=== PATIENT | male | born 1960 | race Caucasian/White ===

== ENCOUNTER 2016-12-30 08:01 | Inpatient (IN) | payer OTHER ==
[2016-12-30] MEDS ORDERED: NITROGLYCERIN OINT 1 INCH/GM PACKET TOPICAL STA (08:08)
[2016-12-30] MEDS ORDERED: ASPIRIN 81 MG CHEW PO STA (08:08)
--- NOTE | 2016-12-30 08:13 | ED ---
General Adult HPI - General Chief complaint: Chest Pain Stated complaint: chest pain Time Seen by Provider: 12/30/16 08:08 Source: patient, EMS, RN notes reviewed Mode of arrival: EMS Limitations: no limitations - History of Present Illness Initial comments: Patient is a pleasant 56-year-old male presenting to the emergency department complaining of chest discomfort. Onset was after walking up steps back to his office. Discomfort was severe. Discomfort has resolved following aspirin and nitro question by EMS. Discomfort felt like pressure or tightness in the chest with radiation to the left arm. No associated dyspnea or nausea or diaphoresis. No history of similar symptoms previously. - Related Data Home Medications Medication Instructions Recorded Confirmed No Known Home Medications [No 12/30/16 12/30/16 Known Home Medications] Allergies Allergy/AdvReac Type Severity Reaction Status Date / Time No Known Allergies Allergy Verified 12/30/16 08:57 Review of Systems ROS Statement: Those systems with pertinent positive or pertinent negative responses have been documented in the HPI. ROS Other: All systems not noted in ROS Statement are negative. Constitutional: Denies: fever Eyes: Denies: eye pain ENT: Denies: ear pain Respiratory: Denies: cough, dyspnea Cardiovascular: Reports: chest pain Endocrine: Denies: fatigue Gastrointestinal: Denies: abdominal pain Genitourinary: Denies: dysuria Musculoskeletal: Denies: back pain Skin: Denies: rash Neurological: Denies: weakness Past Medical History Past Medical History: No Reported History History of Any Multi-Drug Resistant Organisms: None Reported Past Surgical History: No Surgical Hx Reported Past Psychological History: No Psychological Hx Reported Smoking Status: Current every day smoker Past Alcohol Use History: Daily Past Drug Use History: None Reported General Exam Limitations: no limitations General appearance: alert, in no apparent distress Head exam: Present: atraumatic Eye exam: Present: normal appearance ENT exam: Present: normal oropharynx Neck exam: Present: normal inspection Respiratory exam: Present: normal lung sounds bilaterally. Absent: chest wall tenderness Cardiovascular Exam: Present: regular rate, normal rhythm Expanded Peripheral pulses: 2+: Radial (R), Radial (L), Dorsalis Pedis (R), Dorsalis Pedis (L) GI/Abdominal exam: Present: soft. Absent: tenderness Extremities exam: Present: normal inspection. Absent: pedal edema, calf tenderness Neurological exam: Present: alert Psychiatric exam: Present: normal affect, normal mood Skin exam: Absent: rash Course Vital Signs 12/30/16 12/30/16 12/30/16 08:05 08:36 08:44 Temperature 97.6 F Pulse Rate 79 74 86 Respiratory 16 16 16 Rate Blood Pressure 168/89 158/87 161/87 O2 Sat by Pulse 98 97 97 Oximetry - Reevaluation(s) Reevaluation #1: 12/30/16 08:13 Case was discussed in detail with Dr. Rees and EKGs have been forwarded. EKG Findings - EKG Comments: EKG Findings:: Normal sinus rhythm at 83. Normal intervals. Normal axis. Borderline inferior ST elevation. Normal QRS. Medical Decision Making - Medical Decision Making Patient reevaluated and remained symptom-free. Patient was updated regarding results and plan. Also notified Crystal with cardiology regarding elevated troponin. Case was discussed in detail with Dr. Carver, covering for Dr. nunez, who will admit for hospital call. - Lab Data Result diagrams: 12/30/16 08:00 12/30/16 08:00 Lab Results 12/30/16 12/30/16 12/30/16 Range/Units 08:00 08:00 08:00 WBC 6.7 (3.8-10.6) k/uL RBC 5.07 (4.30-5.90) m/uL Hgb 15.7 (13.0-17.5) gm/dL Hct 47.8 (39.0-53.0) % MCV 94.2 (80.0-100.0) fL MCH 31.0 (25.0-35.0) pg MCHC 32.9 (31.0-37.0) g/dL RDW 13.7 (11.5-15.5) % Plt Count 209 (150-450) k/uL Neutrophils % 60 % Lymphocytes % 29 % Monocytes % 6 % Eosinophils % 1 % Basophils % 2 % Neutrophils # 4.0 (1.3-7.7) k/uL Lymphocytes # 1.9 (1.0-4.8) k/uL Monocytes # 0.4 (0-1.0) k/uL Eosinophils # 0.1 (0-0.7) k/uL Basophils # 0.1 (0-0.2) k/uL PT (9.0-12.0) sec INR (<1.1) APTT (22.0-30.0) sec Sodium 140 (137-145) mmol/L Potassium 4.2 (3.5-5.1) mmol/L Chloride 105 (98-107) mmol/L Carbon Dioxide 26 (22-30) mmol/L Anion Gap 9 mmol/L BUN 13 (9-20) mg/dL Creatinine 0.80 (0.66-1.25) mg/dL Est GFR (MDRD) Af Amer >60 (>60 ml/min/1.73 sqM) Est GFR (MDRD) Non-Af >60 (>60 ml/min/1.73 sqM) Glucose 104 H (74-99) mg/dL Calcium 8.7 (8.4-10.2) mg/dL Magnesium 2.0 (1.6-2.3) mg/dL Total Bilirubin 0.6 (0.2-1.3) mg/dL AST 23 (17-59) U/L ALT 43 (21-72) U/L Alkaline Phosphatase 69 (38-126) U/L Total Creatine Kinase 124 (55-170) U/L CK-MB (CK-2) 2.7 H* (0.0-2.4) ng/mL CK-MB (CK-2) Rel Index 2.2 Troponin I 0.111 H* (0.000-0.034) ng/mL Total Protein 6.8 (6.3-8.2) g/dL Albumin 3.9 (3.5-5.0) g/dL 12/30/16 Range/Units 08:00 WBC (3.8-10.6) k/uL RBC (4.30-5.90) m/uL Hgb (13.0-17.5) gm/dL Hct (39.0-53.0) % MCV (80.0-100.0) fL MCH (25.0-35.0) pg MCHC (31.0-37.0) g/dL RDW (11.5-15.5) % Plt Count (150-450) k/uL Neutrophils % % Lymphocytes % % Monocytes % % Eosinophils % % Basophils % % Neutrophils # (1.3-7.7) k/uL Lymphocytes # (1.0-4.8) k/uL Monocytes # (0-1.0) k/uL Eosinophils # (0-0.7) k/uL Basophils # (0-0.2) k/uL PT 10.6 (9.0-12.0) sec INR 1.0 (<1.1) APTT 24.9 (22.0-30.0) sec Sodium (137-145) mmol/L Potassium (3.5-5.1) mmol/L Chloride (98-107) mmol/L Carbon Dioxide (22-30) mmol/L Anion Gap mmol/L BUN (9-20) mg/dL Creatinine (0.66-1.25) mg/dL Est GFR (MDRD) Af Amer (>60 ml/min/1.73 sqM) Est GFR (MDRD) Non-Af (>60 ml/min/1.73 sqM) Glucose (74-99) mg/dL Calcium (8.4-10.2) mg/dL Magnesium (1.6-2.3) mg/dL Total Bilirubin (0.2-1.3) mg/dL AST (17-59) U/L ALT (21-72) U/L Alkaline Phosphatase (38-126) U/L Total Creatine Kinase (55-170) U/L CK-MB (CK-2) (0.0-2.4) ng/mL CK-MB (CK-2) Rel Index Troponin I (0.000-0.034) ng/mL Total Protein (6.3-8.2) g/dL Albumin (3.5-5.0) g/dL - Radiology Data Radiology results: image reviewed (X-ray shows some chronic changes without acute process.) Critical Care Time Critical Care Time: Yes Total Critical Care Time: 36 Disposition Clinical Impression: NSTEMI (non-ST elevated myocardial infarction) Disposition: ADMITTED IP TO THIS HOSP Condition: Serious Time of Disposition: 09:08
[2016-12-30 08:21] LABS: Basophils # (A) 0.1 k/uL (0-0.2); Basophils % (A) 2 %; CH 31.4; CHCM 33.5; Eosinophils # (A) 0.1 k/uL (0-0.7); Eosinophils % (A) 1 %; HCT 47.8 % (39.0-53.0); HDW 2.55; HGB 15.7 gm/dL (13.0-17.5); Luc # (Auto) 0.19; Luc % (Auto) 3; Lymphocytes # (A) 1.9 k/uL (1.0-4.8); Lymphocytes % (A) 29 %; MCHC 32.9 g/dL (31.0-37.0); MCV 94.2 fL (80.0-100.0); Mean Platelet Volume 6.8; Monocytes # (A) 0.4 k/uL (0-1.0); Monocytes % (A) 6 %; Neutrophils % (A) 60 %; RBC 5.07 m/uL (4.30-5.90); RDW 13.7 % (11.5-15.5); WBC 6.7 k/uL (3.8-10.6)
[2016-12-30 08:30] LABS: Partial Thromboplastin Time 24.9 sec (22.0-30.0); Prothrombin Time 10.6 sec (9.0-12.0)
[2016-12-30 08:33] LABS: ALT 43 U/L (21-72); AST 23 U/L (17-59); Alkaline Phosphatase 69 U/L (38-126); Anion Gap 9 mmol/L; Blood Urea Nitrogen 13 mg/dL (9-20); Calcium 8.7 mg/dL (8.4-10.2); Carbon Dioxide 26 mmol/L (22-30); Chloride 105 mmol/L (98-107); Glucose 104 mg/dL (74-99); Non-African American GFR(MDRD) >60 (>60 ml/min/1.73 sqM); Potassium 4.2 mmol/L (3.5-5.1); Sodium 140 mmol/L (137-145); Total Bilirubin 0.6 mg/dL (0.2-1.3); Total Protein 6.8 g/dL (6.3-8.2)
--- NOTE | 2016-12-30 08:47 | XR ---
EXAMINATION TYPE: XR chest 2V DATE OF EXAM: 12/30/2016 8:36 AM COMPARISON: None HISTORY: 56-year-old male with chest pain TECHNIQUE: PA and lateral views FINDINGS: The cardiomediastinal silhouette, aorta, and pulmonary vasculature are within normal limits. Mild int erstitial prominence. No consolidation or pleural effusion. Incidental normal variant azygous fissure . IMPRESSION: Chronic-appearing changes without acute cardiopulmonary process.
[2016-12-30] MEDS ORDERED: HEPARIN SODIUM,PORCINE 5,000 UNIT/ML 1 ML VIAL IV PRN (08:53)
[2016-12-30] MEDS ORDERED: HEPARIN SODIUM,PORCINE 5,000 UNIT/ML 1 ML VIAL IV ONE (08:53)
[2016-12-30] MEDS ORDERED: HEPARIN SODIUM,PORCINE/D5W PMX 25,000 UNIT in DEXTROSE/WATER 1 500ML.BAG IV SCH (09:00)
[2016-12-30 09:01] LABS: Creatine Kinase MB 2.7 ng/mL (0.0-2.4); Troponin I 0.111 ng/mL (0.000-0.034)
[2016-12-30] MEDS ORDERED: NITROGLYCERIN SL TABS 0.4 MG TAB SUBLINGUAL PRN (09:08)
--- NOTE | 2016-12-30 09:35 | P.CRDCN ---
History of Present Illness Consult date: 12/30/16 Reason for Consult (text): chest pain History of present illness: this is a 56-year-old gentleman with history of chronic smoking with the no other significant medical history started having chest discomfort while at work today. Apparently walked to his office from a parking lot and sat down and had a severe tight feeling across left side of the chest with some radiation to the left arm. He felt warm. No complaints of any nausea or vomiting. Did not complain of any shortness of breath. Apparently his colleagues look at him and he was looking very frail. They wanted to bring him to the hospital. Apparently the office of the paramedics was close by and patient walked to the office. Paramedics apparently gave him nitroglycerin with complete relief of pain. Since then patient has been pain-free. His EKG showed a sinus rhythm with small Q waves in 23 and aVF with mild ST-T changes 1 and aVL. His first troponin is abnormal in the range of 0.111. Because of typical chest pain and mild EKG changes, patient is advised to have a cardiac catheterization for definitive diagnosis. Patient was explained the risks and benefits of the procedure including the possibility of myocardial infarctions stroke or even . Patient fully understood and accepted. Review of Systems REVIEW OF SYSTEMS: CONSTITUTIONAL:[]. Patient is doing well. No complaints of fever or chills EYES:[] Denies diplopia, blurring of vision EARS, NOSE, MOUTH, THROAT: Denies headaches, denies sore throat. CARDIOVASCULAR: [as per HPI. RESPIRATORY: Denies shortness of breath, denies cough. GASTROINTESTINAL: Denies change in appetite, denies abdominal pain,\ GENITOURINARY: Denies hematuria, denies infections. MUSKULOSKELETAL: Denies pain, denies swelling. Denies any cramps or claudication INTEGUMENTARY: Denies rash, denies eczema. NEUROLOGICAL: [] Denies focal weakness, or visual disturbance. Denies any dizziness or syncope PSYCHIATRIC: Denies anxiety, denies depression. accept default's HEMATOLOGIC/LYMPHATIC: Denies any bleeding, denies enlarged lymph nodes. accept default's Past Medical History Past Medical History: No Reported History History of Any Multi-Drug Resistant Organisms: None Reported Past Surgical History: No Surgical Hx Reported Past Psychological History: No Psychological Hx Reported Smoking Status: Current every day smoker Past Alcohol Use History: Daily Past Drug Use History: None Reported Medications and Allergies Home Medications Medication Instructions Recorded Confirmed Type No Known Home Medications [No 12/30/16 12/30/16 History Known Home Medications] Allergies Allergy/AdvReac Type Severity Reaction Status Date / Time No Known Allergies Allergy Verified 12/30/16 08:57 Physical Exam GENERAL EXAM: Patient is alert and oriented and doesn't appear to be in any acute distress HEENT: Normocephalic. Normal reaction of pupils, equal size, normal range of extraocular motion. No erythema or exudates in the throat. NECK: No masses, no nuchal rigidity. CHEST: No chest wall deformity. LUNGS: Equal air entry with no crackles or wheeze. HEART: S1 and S2 normal with no audible mumurs or gallops. Regular rhythm, pulses are diminished on the left side.. ABDOMEN: No hepatosplenomegaly, normal bowel sounds, no guarding or rigidity. SKIN: No rashes CENTRAL NERVOUS SYSTEM: No focal deficits. EXTREMITIES: [No cyanosis, clubbing or edema.accept default's Results 12/30/16 08:00 12/30/16 08:00 Current Medications Generic Name Dose Route Start Last Admin Trade Name Freq PRN Reason Stop Dose Admin Aspirin 325 mg 12/31/16 09:00 Aspirin PO DAILY [facility] Heparin Sodium (Porcine) 0 unit 12/30/16 08:53 Heparin IV PER PROTOCOL PRN Low PTT Protocol Heparin Sodium/Dextrose 25,000 500 mls @ 19.99 mls/hr 12/30/16 09:00 09:24 unit/ IV Solution IV 11.6 units/kg/hr .Q24H [facility] 19.99 mls/hr Protocol Administration 11.6 UNITS/KG/HR Nitroglycerin 1 inch 12/30/16 12:00 Nitro-Bid Oint TOPICAL Q6HR [facility] Nitroglycerin 0.4 mg 12/30/16 09:08 Nitrostat SUBLINGUAL Q5M PRN Chest Pain EKG Interpretations (text) sinus rhythm with small Q waves in inferior leads and nonspecific ST-T changes in 1 and aVL Assessment and Plan (1) NSTEMI (non-ST elevated myocardial infarction) Status: Acute (2) Smoking Status: Acute (3) Peripheral vascular disease Status: Acute Plan: patient's symptoms are sized for unstable angina/non-ST elevation PA. Patient is advised to have a cardiac catheterization for definitive diagnosis. Patient also has poor Pulses in the left leg and peripheral vascular disease to be evaluated.further recommendations depend upon the cardiac catheterization.
[2016-12-30] MEDS ORDERED: fentaNYL (PF) 50 MCG/ML 2 ML AMP IV ONE (10:07)
[2016-12-30] MEDS ORDERED: MIDAZOLAM 2 MG/2 ML VIAL IV ONE (10:07)
[2016-12-30] MEDS ORDERED: SODIUM CHLORIDE 0.9% 1,000 ML IV ONE (10:07)
[2016-12-30] MEDS ORDERED: LIDOCAINE 2% INJ 20 MG/ML SQ ONE (10:11)
[2016-12-30] MEDS ORDERED: IOHEXOL 350 MG/ML 125ML BOTTLE ONE (10:25)
[2016-12-30] MEDS ORDERED: IOHEXOL 350 MG/ML 125ML BOTTLE INTRATHECA ONE (10:25)
[2016-12-30] MEDS ORDERED: RX INFO: IV CONTRAST WAS GIVEN 1 EACH MISC MISCELLANE PRN (10:40)
[2016-12-30] MEDS ORDERED: ATORVASTATIN 80 MG TAB PO STA (10:46)
--- NOTE | 2016-12-30 10:47 | P.PCN ---
Date of Procedure: 12/30/16 Preoperative Diagnosis: Unstable angina/non-ST elevation LA Postoperative Diagnosis: Severe triple-vessel disease Procedure(s) Performed: Left heart catheterization with left ventriculography Description of Procedure: HISTORY: This is a 56-year-old gentleman with history of smoking who was admitted to the emergency room with complaints of prolonged chest pain with mild ST-T changes and positive troponins. Patient is advised to have a cardiac catheterization for definitive diagnosis. CONSENT:I have discussed the risks, benefits and alternative therapies for the above-mentioned procedure and for both sedation/analgesia as well as necessary blood product administration, if indicated, as they pertain to this patient. The patient has indicated understanding and acceptance of the risks and procedures discussed. PROCEDURE: Patient was brought to the lab in a fasting state. Patient was given some IV sedation. The right groin is infiltrated with lidocaine and right femoral artery was entered using Seldinger technique. A 6[place] catheter was left in place and selective coronary arteriography and left ventriculography was performed. Patient tolerated the procedure well. Femoral angiogram was performed and manual compression was applied for hemostasis. No immediate complications were noted and patient was transferred to [facility] in a stable condition HEMODYNAMICS: The aortic pressure is about 130/70. Left ankle end-diastolic pressure is 8-12. No gradient across the aortic valve. SELECTIVE CORONARY ARTERIOGRAPHY: LEFT MAIN: Normal length and patent THE LEFT ANTERIOR DESCENDING CORONARY ARTERY: Calcified. About 70-80% lesion proximally. There is a 80-90% stenosis in midportion. On the diagonal branches has about 70% lesion. The distal LAD is free of occlusive disease THE LEFT CIRCUMFLEX AND IS CORONARY ARTERY: Dominant and large caliber vessel. 90% stenosis proximally. There is a OM branch that has about 70-80% stenosis. THE RIGHT CORONARY ARTERY: Nondominant with a 90% stenosis in midportion. LEFT VENTRICULOGRAPHY: This revealed normal-sized cardiac silhouette with mild hypokinesis of the inferoapical segment. Ejection fraction is 50-55% FINAL IMPRESSION: Severe triple-vessel disease and mildly impaired LV function PLAN: Aortocoronary bypass surgery with the VELÁSQUEZ graft to the LAD, vein graft to the OM branch and also distal circumflex. Vein graft to the diagonal and possibly to the distal right. PROGNOSIS: Guarded
[2016-12-30] MEDS: SODIUM CHLORIDE 0.9% 1,000 ML IV SCH (11:59)
[2016-12-30] MEDS: METOPROLOL TARTRATE 25 MG TAB PO SCH ×2 (13:02→20:42)
[2016-12-30] MEDS: NITROGLYCERIN OINT 1 INCH/GM PACKET TOPICAL SCH ×2 (13:02→18:37)
[2016-12-30 14:45] LABS: Appearance,Urine Clear (Clear); Bilirubin,Urine Negative (Negative); Glucose,Urine (UA) Negative (Negative); Ketones,Urine Negative (Negative); Leukocyte Esterase,Urine Negative (Negative); Nitrite,Urine Negative (Negative); Protein,Urine Negative (Negative); Specific Gravity,Urine 1.018 (1.001-1.035); UA Billing (MACRO vs. MICRO) CHEM; Urobilinogen,Urine <2.0 mg/dL (<2.0)
[2016-12-30 15:03] LABS: Partial Thromboplastin Time 25.2 sec (22.0-30.0); Prothrombin Time 10.5 sec (9.0-12.0)
[2016-12-30 15:20] LABS: Cholesterol 194 mg/dL (<200); HDL Cholesterol 57 mg/dL (40-60); Magnesium 2.2 mg/dL (1.6-2.3); Triglycerides 115 mg/dL (<150)
--- NOTE | 2016-12-30 15:39 | US ---
EXAMINATION TYPE: US carotid duplex BILAT DATE OF EXAM: 12/30/2016 3:15 PM COMPARISON: NONE CLINICAL HISTORY: 56-year-old male Pre op CABG x 4. TECHNIQUE: Duplex carotid ultrasound examination. Indirect Doppler criteria was utilized. FINDINGS: There is mild atherosclerotic change at the bifurcations. EXAM MEASUREMENTS: RIGHT: Peak Systolic Velocity (PSV) cm/sec ----- Right CCA: 82.7 ----- Right ICA: 83.4 ----- Right ECA: 135.5 ICA/CCA ratio: 1.0 RIGHT: End Diastole cm/sec ----- Right CCA: 23.1 ----- Right ICA: 27.4 ----- Right ECA: 19.2 LEFT: Peak Systolic Velocity (PSV) cm/sec ----- Left CCA: 99.0 ----- Left ICA: 109.7 ----- Left ECA: 133.9 ICA/CCA ratio: 1.1 LEFT: End Diastole cm/sec ----- Left CCA: 25.0 ----- Left ICA: 38.6 ----- Left ECA: 17.6 VERTEBRALS (direction of flow): Right Vertebral: Antegrade Left Vertebral: Antegrade IMPRESSION: No hemodynamically significant stenosis appreciated in either internal carotid artery. Criteria for Assigning % of Stenosis / Diameter reduction (Estimation based on the indirect measurements of the internal carotid artery velocities (ICA PSV). 1. Normal (no stenosis)=ICA PSV < 125 cm/s: ratio < 2.0: ICA EDV<40 cm/s. 2. Less than 50% stenosis=ICA PSV < 125 cm/s: ratio < 2.0: ICA EDV<40 cm/s. 3. 50 to 69% stenosis=ICA PSV of 125 to 230 cm/s: ration 2.0 ? 4.0: ICA EDV 40-100 cm/s. 4. Greater than 70% stenosis to near occlusion= ICA PSV > 230 cm/s: ratio > 4.0: ICA EDV > 100 cm/s. 5. Near occlusion= ICA PSV velocities may be low or undetectable: variable ratio and ICA EDV. 6. Total occlusion=unable to detect flow.
[2016-12-30] MEDS ORDERED: MD COMMUNICATION TO PHARMACY 1 EACH MISC PO ONE (15:45)
[2016-12-30 15:48] LABS: Creatine Kinase MB 3.4 ng/mL (0.0-2.4); Troponin I 0.302 ng/mL (0.000-0.034)
[2016-12-30 15:51] LABS: Hepatitis B Surface Ag Index 0.05
[2016-12-30 15:57] LABS: Hepatitis B Core IgM Index 0.04
[2016-12-30 16:08] LABS: Hepatitis C Virus IgG Index 0.02
[2016-12-30 16:15] LABS: Hepatitis C Virus IgG Ab Negative (Negative)
--- NOTE | 2016-12-30 17:07 | P.GSCN ---
<Mandi Mcgarry - Last Filed: 12/30/16 16:46> History of Present Illness Consult date: 12/30/16 Reason for Consult: Severe coronary artery disease, non-STEMI requiring surgical revascularization. Requesting physician: Gabrielle Rees History of present illness: This 56-year-old gentleman with history of smoking was at work this morning and began to have chest discomfort. He was walking from his office through the parking lot and had severe tightness across the left side of his chest with radiation down his left arm. He denied any shortness of breath, nausea, vomiting. He walked from his work to the paramedics office which was close by, and the paramedics gave him sublingual nitro with complete relief of his pain. He did come into the emergency room and was ruled in for a non-STEMI. Cardiology associates was consulted, he was taken to the [facility] this morning, and was found to have severe triple-vessel disease and mildly impaired LV function. Cardiothoracic surgery was consulted for the possibility of surgical revascularization. Extensive discussion was had with the patient, all risks and benefits were explained, and the patient agreed to proceed with surgery. Review of Systems 14 point review of systems was completed and was negative except as noted. - Cardiovascular Reports as per HPI Past Medical History Past Medical History: No Reported History Additional Past Medical History / Comment(s): 12/30/16 NSTEMI. Other hx: L hip injury-misaligned and tx by chiropractor. History of Any Multi-Drug Resistant Organisms: None Reported Past Surgical History: No Surgical Hx Reported Additional Past Surgical History / Comment(s): vasectomy with reversal. Past Anesthesia/Blood Transfusion Reactions: No Reported Reaction Past Psychological History: No Psychological Hx Reported Additional Psychological History / Comment(s): Pt resides alone. He has an 8 month old [place] puppy. He is independent. Smoking Status: Current every day smoker Past Alcohol Use History: Daily Additional Past Alcohol Use History / Comment(s): Pt started smoking in 1986 and is 1 ppd smoker. Pt states he drinks less than 14 alcoholic beverages a week. Past Drug Use History: None Reported - Past Family History Father Family Medical History: Deep Vein Thrombosis (DVT) Additional Family Medical History / Comment(s): Father has had bilateral caratid endartectomies and DVT in leg. He is 78yrs old. Mother Additional Family Medical History / Comment(s): Mother at 74 yrs of age had cardiac valve repair along with hole in heart repaired. She is now 76yrs old. Medications and Allergies Home Medications Medication Instructions Recorded Confirmed Type No Known Home Medications [No 12/30/16 12/30/16 History Known Home Medications] Allergies Allergy/AdvReac Type Severity Reaction Status Date / Time No Known Allergies Allergy Verified 12/30/16 08:57 Surgical - Exam Vital Signs Temp Pulse Resp BP Pulse Ox 97.6 F 79 16 168/89 98 12/30/16 08:05 12/30/16 08:05 12/30/16 08:05 12/30/16 08:05 12/30/16 08:05 - General well developed, well nourished, no distress - Eyes PERRL, normal ocular movement - ENT no hearing loss - Neck no masses, no bruits, trachea midline - Respiratory normal expansion, normal respiratory effort, clear to auscultation - Cardiovascular Normal sinus rhythm on telemetry. Rhythm: regular Heart Sounds: normal: S1, S2 - Abdomen Abdomen: soft, non tender, bowel sounds - Genitourinary Deferred - Rectum Deferred - Integumentary no rash, no growths - Neurologic normal coordination, normal sensation - Musculoskeletal normal gait - Psychiatric oriented to time, oriented to person, oriented to place, speech is normal, memory intact Results - Labs 12/30/16 08:00 12/30/16 08:00 Abnormal Lab Results - Last 24 Hours (Table) 12/30/16 12/30/16 Range/Units 14:30 14:30 CK-MB (CK-2) 3.4 H* (0.0-2.4) ng/mL Troponin I 0.302 H* (0.000-0.034) ng/mL LDL Cholesterol, Calc 114 H (0-99) mg/dL Diabetes panel 12/30/16 Range/Units 14:30 Triglycerides 115 (<150) mg/dL HDL Cholesterol 57 (40-60) mg/dL Thyroid panel 12/30/16 Range/Units 14:30 TSH 1.470 (0.465-4.680) mIU/L Pituitary panel 12/30/16 Range/Units 14:30 TSH 1.470 (0.465-4.680) mIU/L - Imaging Chest x-ray: image reviewed EKG: image reviewed Additional studies: Cardiac cath films, carotid Doppler studies reviewed. Assessment and Plan (1) Tobacco dependence Status: Acute (2) NSTEMI (non-ST elevated myocardial infarction) Status: Acute Plan: The patient was seen and examined by Dr. Moulton from cardiothoracic surgery. All preop testing was ordered and is pending. The patient is currently chest pain-free. Preoperative teaching was begun, CABG binder given to patient. We will allow a few days for maximum medical therapy before proceeding on 01/02/2017 with urgent coronary artery bypass grafting 4. Emotional support given. Patient strongly encouraged to quit smoking. More recommendations as patient progresses. Thank you Dr. Rees for this consult. We look forward to produce pain to the care of your patient. Time with Patient: Greater than 30 <Evelio Wise - Last Filed: 12/31/16 11:50> Surgical - Exam Vital Signs Temp Pulse Resp BP Pulse Ox 97.6 F 79 16 168/89 98 12/30/16 08:05 12/30/16 08:05 12/30/16 08:05 12/30/16 08:05 12/30/16 08:05 Results - Labs 12/31/16 05:45 12/31/16 05:45 Abnormal Lab Results - Last 24 Hours (Table) 12/30/16 12/30/16 12/30/16 Range/Units 14:30 14:30 19:41 Chloride (98-107) mmol/L CK-MB (CK-2) 3.4 H* 4.1 H* (0.0-2.4) ng/mL Troponin I 0.302 H* 0.507 H* (0.000-0.034) ng/mL LDL Cholesterol, Calc 114 H (0-99) mg/dL 12/31/16 Range/Units 05:45 Chloride 108 H (98-107) mmol/L CK-MB (CK-2) (0.0-2.4) ng/mL Troponin I (0.000-0.034) ng/mL LDL Cholesterol, Calc 101 H (0-99) mg/dL Microbiology - Last 24 Hours (Table) 12/30/16 14:30 Urine Culture - Preliminary Urine,Voided 12/30/16 14:13 Nasal Screen MRSA/MSSA ([place]) - Preliminary Nasal Swab Diabetes panel 12/30/16 12/31/16 Range/Units 14:30 05:45 Sodium 139 (137-145) mmol/L Potassium 4.5 (3.5-5.1) mmol/L Chloride 108 H (98-107) mmol/L Carbon Dioxide 24 (22-30) mmol/L BUN 10 (9-20) mg/dL Creatinine 0.81 (0.66-1.25) mg/dL Glucose 95 (74-99) mg/dL Calcium 9.2 (8.4-10.2) mg/dL AST 25 (17-59) U/L ALT 38 (21-72) U/L Alkaline Phosphatase 68 (38-126) U/L Total Protein 6.6 (6.3-8.2) g/dL Albumin 3.8 (3.5-5.0) g/dL Triglycerides 115 98 (<150) mg/dL HDL Cholesterol 57 52 (40-60) mg/dL Thyroid panel 12/30/16 12/31/16 Range/Units 14:30 05:45 TSH 1.470 2.810 (0.465-4.680) mIU/L Calcium panel 12/31/16 Range/Units 05:45 Calcium 9.2 (8.4-10.2) mg/dL Albumin 3.8 (3.5-5.0) g/dL Pituitary panel 12/30/16 12/31/16 Range/Units 14:30 05:45 Sodium 139 (137-145) mmol/L Potassium 4.5 (3.5-5.1) mmol/L Chloride 108 H (98-107) mmol/L Carbon Dioxide 24 (22-30) mmol/L BUN 10 (9-20) mg/dL Creatinine 0.81 (0.66-1.25) mg/dL Glucose 95 (74-99) mg/dL Calcium 9.2 (8.4-10.2) mg/dL TSH 1.470 2.810 (0.465-4.680) mIU/L Adrenal panel 12/31/16 Range/Units 05:45 Sodium 139 (137-145) mmol/L Potassium 4.5 (3.5-5.1) mmol/L Chloride 108 H (98-107) mmol/L Carbon Dioxide 24 (22-30) mmol/L BUN 10 (9-20) mg/dL Creatinine 0.81 (0.66-1.25) mg/dL Glucose 95 (74-99) mg/dL Calcium 9.2 (8.4-10.2) mg/dL Total Bilirubin 0.9 (0.2-1.3) mg/dL AST 25 (17-59) U/L ALT 38 (21-72) U/L Alkaline Phosphatase 68 (38-126) U/L Total Protein 6.6 (6.3-8.2) g/dL Albumin 3.8 (3.5-5.0) g/dL Assessment and Plan Plan: The patient was seen and examined. I agree with the above assessment and plan. The patient is a 56-year-old male who presented to the hospital with chest pain. Workup revealed multivessel coronary artery disease. Coronary artery bypass was recommended. Risks, benefits, and alternatives this procedure were discussed with the patient. All questions were answered. We have scheduled him for surgery on Monday morning. He is currently hemodynamically stable and chest pain-free.
--- NOTE | 2016-12-30 17:18 | ECHOF ---
Referral Reason:nstemi MEASUREMENTS -------- HEIGHT: 175.3 cm WEIGHT: 86.2 kg BP: 161/87 RVIDd: 3.6 cm (< 3.3) IVSd: 1.2 cm (0.6 - 1.1) LVIDd: 4.2 cm (3.9 - 5.3) LVPWd: 1.3 cm (0.6 - 1.1) IVSs: 1.6 cm LVIDs: 2.9 cm LVPWs: 1.9 cm LA Diam: 2.9 cm (2.7 - 3.8) LAESV Index (A-L): 16.50 ml/m Ao Diam: 2.6 cm (2.0 - 3.7) AV Cusp: 1.4 cm (1.5 - 2.6) LA Diam: 1.8 cm (2.7 - 3.8) MV EXCURSION: 13.059 mm (> 18.000) MV EF SLOPE: 66 mm/s (70 - 150) EPSS: 0.3 cm MV E Dale: 0.58 m/s MV DecT: 229 ms MV A Dale: 0.52 m/s MV E/A Ratio: 1.11 FINDINGS -------- Sinus rhythm. This was a technically adequate study. There is mild concentric left ventricular hypertrophy. Overall left ventricular systolic function is normal with, an EF between 55 - 60 %. The right ventricle is mildly enlarged. Normal LA size by volume 22+/-6 ml/m2. The right atrium is normal in size. The aortic valve is trileaflet and appears structurally normal. Mild mitral annular calcification present. There is trace mitral regurgitation. Trace tricuspid regurgitation present. Pulmonic valve appears structurally normal. The aortic root size is normal. Normal inferior vena cava with normal inspiratory collapse consistent with estimated right atrial pressure of 5 mmHg. Echo free space may represent effusion or a pericardial fat pad. CONCLUSIONS -------- 1. Sinus rhythm. 2. There is trace mitral regurgitation. 3. Trace tricuspid regurgitation present. 4. Pulmonic valve appears structurally normal. 5. The aortic root size is normal. 6. Normal inferior vena cava with normal inspiratory collapse consistent with estimated right atrial pressure of 5 mmHg. 7. Echo free space may represent effusion or a pericardial fat pad. 8. This was a technically adequate study. 9. There is mild concentric left ventricular hypertrophy. 10. Overall left ventricular systolic function is normal with, an EF between 55 - 60 %. 11. The right ventricle is mildly enlarged. 12. Normal LA size by volume 22+/-6 ml/m2. 13. The right atrium is normal in size. 14. The aortic valve is trileaflet and appears structurally normal. 15. Mild mitral annular calcification present. RESIDENTIAL WORKER: Quinn Khan RDCS
[2016-12-30 18:12] LABS: Hemoglobin A1C 5.9 % (4.2-6.1)
--- NOTE | 2016-12-30 18:31 | HP ---
DATE OF ADMISSION: CHIEF COMPLAINT: Chest pain. HISTORY OF PRESENT ILLNESS: Mr. Black is a 56-year-old male without significant past medical history except for smoking. He was brought to the hospital with complaints of chest pain. Patient apparently was walking to his office from a parking lot and suddenly felt chest tightness, severe, and sat down. Patient felt chest pain across the left side of the chest with radiation to the left arm. Denied any nausea or vomiting. Denied any shortness of breath. Patient's colleagues found him and sent him to the hospital. Patient was given nitroglycerin by paramedics, and since that time patient is free of chest pain. Patient was seen by Cardiology and patient underwent cardiac catheterization that showed triple-vessel disease. Currently patient ( ) denied any recent illnesses. Denied any nausea, vomiting, abdominal pain. REVIEW OF SYSTEMS: CONSTITUTIONAL: No fever. No chills. No weakness. RESPIRATORY: No cough or sputum production. CARDIOVASCULAR: No chest pain or shortness of breath. No leg swelling. ABDOMEN: No nausea, vomiting, abdominal pain. RESPIRATORY: No orthopnea. No PND. GENITOURINARY: Negative. ENDOCRINE: Negative. PSYCHIATRIC: Negative. SKIN: Negative. NEUROLOGIC: Negative. All other fourteen-point review of systems negative except as above. PAST MEDICAL HISTORY: None. PAST SURGICAL HISTORY: Vasectomy. PAST PSYCHIATRIC HISTORY: None. SOCIAL HISTORY: Apparently an everyday smoker, 1 pack per day. Occasional alcohol use. Denied any drugs or IVDU. NO KNOWN DRUG ALLERGIES. HOME MEDICATIONS: None. FAMILY HISTORY: Father had diabetes mellitus and peripheral vascular disease. PHYSICAL EXAMINATION: A 56-year-old male lying in bed comfortably. Awake, alert and oriented x3. Appears in no distress. VITALS: Blood pressure is 116/91, pulse is 76, respiration 16, temperature afebrile. Pulse ox is 97% on room air. HEENT: Atraumatic, normocephalic. Neck is supple. No JVD. CVS: S1, S2 heard. No murmurs. No gallop. No rub. LUNGS: Bilateral air entry is present. No wheezing. No crackles. Nonlabored breathing. ABDOMEN: Soft, nontender. Bowel sounds present. SPICE GRINDER: Awake, alert, oriented x3. No focal deficit. EXTREMITIES: No edema. Pulses palpable bilaterally. No clubbing ( ) PSYCHIATRIC: Cooperative. LABORATORY DATA: WBC 6.7, hemoglobin 15.7, platelets 209. INR 1.0. Sodium 140, potassium 4.2, chloride 105, bicarb 26. BUN 13, creatinine 0.8. Troponin 0.111 and 0.302. UA negative. Hepatitis panel negative. TSH 1.47. LDL is 114. IMPRESSION: 1. Acute ajq-HG-[id number] myocardial infarction, status post cardiac catheterization. 2. Triple-vessel coronary artery disease. Recommended coronary artery bypass graft. 3. Nicotine addiction. 4. Suspected peripheral vascular disease. DISCUSSION AND PLAN: Patient will be continued on telemetry monitoring. Cardiology did cardiac catheterization and recommended bypass grafting due to triple-vessel disease. Awaiting patient's consent for procedure. Otherwise, patient is currently free of chest pain. REMAINING STUDIES: Chest x-ray shows chronic-appearing changes without acute cardiopulmonary process. EKG showed mild ST-T wave changes in leads I and aVL. Carotid duplex showed no hemodynamically significant stenosis.
[2016-12-30] MEDS: MUPIROCIN 2% OINT 22 GM TUBE NASAL SCH (20:42)
[2016-12-30 20:45] LABS: Creatine Kinase MB 4.1 ng/mL (0.0-2.4); Troponin I 0.507 ng/mL (0.000-0.034)
[2016-12-30] MEDS ORDERED: MUPIROCIN 2% OINT 22 GM TUBE NASAL SCH (21:00)
[2016-12-31] MEDS: SODIUM CHLORIDE 0.9% 1,000 ML IV SCH
[2016-12-31 06:18] LABS: Basophils % (A) 1 %; CH 31.5; CHCM 33.2; Eosinophils # (A) 0.1 k/uL (0-0.7); Eosinophils % (A) 2 %; HCT 48.4 % (39.0-53.0); HDW 2.54; HGB 15.7 gm/dL (13.0-17.5); Luc # (Auto) 0.15; Luc % (Auto) 2; Lymphocytes # (A) 1.9 k/uL (1.0-4.8); Lymphocytes % (A) 28 %; MCH 30.8 pg (25.0-35.0); MCHC 32.4 g/dL (31.0-37.0); MCV 95.2 fL (80.0-100.0); Mean Platelet Volume 6.8; Monocytes # (A) 0.4 k/uL (0-1.0); Monocytes % (A) 6 %; Neutrophils # (A) 4.2 k/uL (1.3-7.7); Neutrophils % (A) 62 %; RBC 5.09 m/uL (4.30-5.90); RDW 13.9 % (11.5-15.5); WBC 6.8 k/uL (3.8-10.6); WBC (Perox) 6.55
[2016-12-31 06:26] LABS: INR 1.1 (<1.1); Partial Thromboplastin Time 25.1 sec (22.0-30.0); Prothrombin Time 10.8 sec (9.0-12.0)
[2016-12-31 06:42] LABS: ALT 38 U/L (21-72); AST 25 U/L (17-59); Alkaline Phosphatase 68 U/L (38-126); Anion Gap 7 mmol/L; Blood Urea Nitrogen 10 mg/dL (9-20); Calcium 9.2 mg/dL (8.4-10.2); Carbon Dioxide 24 mmol/L (22-30); Chloride 108 mmol/L (98-107); Cholesterol 173 mg/dL (<200); Glucose 95 mg/dL (74-99); HDL Cholesterol 52 mg/dL (40-60); Magnesium 2.2 mg/dL (1.6-2.3); Non-African American GFR(MDRD) >60 (>60 ml/min/1.73 sqM); Potassium 4.5 mmol/L (3.5-5.1); Sodium 139 mmol/L (137-145); Total Bilirubin 0.9 mg/dL (0.2-1.3); Total Protein 6.6 g/dL (6.3-8.2); Triglycerides 98 mg/dL (<150)
[2016-12-31] MEDS: NITROGLYCERIN OINT 1 INCH/GM PACKET TOPICAL SCH ×6 (07:01→23:29)
[2016-12-31 07:06] LABS: Hepatitis B Surface Ag Index 0.05
[2016-12-31 07:12] LABS: Hepatitis B Core IgM Index 0.03
[2016-12-31 07:23] LABS: Hepatitis C Virus IgG Index 0.02
[2016-12-31 07:31] LABS: Hepatitis C Virus IgG Ab Negative (Negative)
[2016-12-31] MEDS: ASPIRIN 325 MG TAB PO SCH (08:00)
[2016-12-31] MEDS: METOPROLOL TARTRATE 25 MG TAB PO SCH ×2 (08:01→20:11)
[2016-12-31] MEDS: MUPIROCIN 2% OINT 22 GM TUBE NASAL SCH ×2 (08:02→20:11)
[2016-12-31 13:00] LABS: Hemoglobin A1C 5.8 % (4.2-6.1)
--- NOTE | 2016-12-31 14:39 | P.PN ---
<Baltazar Chiu L - Last Filed: 12/31/16 14:28> Progress Note - Text CV Surgery Nursing Patient awake and alert, no distress noted, no specific complaints,denies complaints of chest pain. Patient's daughters are at bedside. Vital Signs: Afebrile Vital Signs - 24 hr 12/30/16 12/30/16 12/30/16 15:30 16:00 19:12 Temperature 96.1 F L 96.4 F L Pulse Rate [ 66 Bilateral Dorsalis Pedis] Pulse Rate [ 66 76 Pulse Oximetery ] Respiratory 20 20 16 Rate Blood Pressure 114/65 131/69 [Right Arm Supine] O2 Sat by Pulse 94 L 93 L Oximetry 12/30/16 12/31/16 12/31/16 20:00 00:00 04:00 Temperature 97.7 F 96.8 F L 97.9 F Pulse Rate [ Bilateral Dorsalis Pedis] Pulse Rate [ 72 64 66 Pulse Oximetery ] Respiratory 18 18 18 Rate Blood Pressure 128/70 125/70 126/74 [Right Arm Supine] O2 Sat by Pulse 93 L 93 L 93 L Oximetry 12/31/16 12/31/16 08:00 11:49 Temperature 96.9 F L Pulse Rate [ Bilateral Dorsalis Pedis] Pulse Rate [ 75 59 L Pulse Oximetery ] Respiratory 18 18 Rate Blood Pressure 125/70 135/73 [Right Arm Supine] O2 Sat by Pulse 93 L 95 Oximetry Labs: Short CBC 12/31/16 Range/Units 05:45 WBC 6.8 (3.8-10.6) k/uL Hgb 15.7 (13.0-17.5) gm/dL Hct 48.4 (39.0-53.0) % Plt Count 214 (150-450) k/uL Neutrophils # 4.2 (1.3-7.7) k/uL BMP 12/31/16 05:45 Sodium 139 Potassium 4.5 Chloride 108 H Carbon Dioxide 24 BUN 10 Creatinine 0.81 Glucose 95 Calcium 9.2 Cardiac Enzymes 12/30/16 12/30/16 Range/Units 14:30 19:41 Total Creatine Kinase 123 122 (55-170) U/L CK-MB (CK-2) 3.4 H* 4.1 H* (0.0-2.4) ng/mL Troponin I 0.302 H* 0.507 H* (0.000-0.034) ng/mL Liver Function 12/31/16 Range/Units 05:45 Total Bilirubin 0.9 (0.2-1.3) mg/dL AST 25 (17-59) U/L ALT 38 (21-72) U/L Alkaline Phosphatase 68 (38-126) U/L Albumin 3.8 (3.5-5.0) g/dL Urine 12/30/16 Range/Units 14:30 Urine Color Light Yellow Urine Appearance Clear (Clear) Urine pH 7.0 (5.0-8.0) Ur Specific [place] 1.018 (1.001-1.035) Urine Protein Negative (Negative) Urine Glucose (UA) Negative (Negative) PT/INR, D-dimer PT 10.8 sec (9.0-12.0) 12/31/16 05:45 INR 1.1 (<1.1) 12/31/16 05:45 Lungs: essentially clear throughout, respirations are unlabored. O2 sat: 95%on room air. Heart: S1S2, regular rhythm and rate,remote telemetry showing sinus bradycardia heart rate 55. Abdomen: Soft, Positive bowel sounds present in all 4 quadrants. U/O: adequate. 24 hr Total: Intake & Output 12/29/16 12/30/16 12/31/16 01/01/17 06:59 06:59 06:59 06:59 Intake Total 2025 Output Total 1150 Balance 875 Weight 83.6 kg Active Medications Aminocaproic Acid (Amicar) 5,000 mg IV ONCE PRN PRN Reason: OPEN HEART Aspirin (Aspirin) 325 mg PO DAILY MARISSA Stop: 01/01/17 23:59 Last Admin: 12/31/16 08:00 Dose: 325 mg Aspirin (Aspirin) 325 mg PO ONCE ONE Stop: 01/02/17 05:01 Atorvastatin Calcium (Lipitor) 10 mg PO ONCE ONE Stop: 01/02/17 05:01 Calcium Chloride (Calcium Chloride) 1,000 mg IVP ONCE PRN PRN Reason: OPEN HEART Chlorhexidine Gluconate (Peridex) 15 ml MUCOUS MEM ONCE PRN PRN Reason: OPEN HEART Heparin Sodium (Porcine) (Heparin) 0 unit IV PER PROTOCOL PRN; Protocol PRN Reason: Low PTT Heparin Sodium (Porcine) (Heparin Sodium (1,000 Unit/Ml)) 10,000 unit IV ONCE PRN PRN Reason: OPEN HEART Heparin Sodium (Porcine) (Heparin) 30,000 unit IV ONCE PRN PRN Reason: OPEN HEART Heparin Sodium (Porcine) (Heparin) 30,000 unit IV ONCE PRN PRN Reason: OPEN HEART Heparin Sodium (Porcine) (Heparin) 30,000 unit IV ONCE PRN PRN Reason: OPEN HEART Albumin Human 50 ml/ IV (Solution) 50 mls @ 100 mls/hr IVPB ONCE PRN PRN Reason: OPEN HEART Albumin Human 50 ml/ IV (Solution) 50 mls @ 100 mls/hr IVPB ONCE PRN PRN Reason: OPEN HEART Albumin Human 500 ml/ IV (Solution) 500 mls @ 250 mls/hr IVPB ONCE PRN PRN Reason: OPEN HEART Albumin Human 500 ml/ IV (Solution) 500 mls @ 250 mls/hr IVPB ONCE PRN PRN Reason: OPEN HEART Albumin Human 500 ml/ IV (Solution) 500 mls @ 250 mls/hr IVPB ONCE PRN PRN Reason: OPEN HEART Albumin Human 500 ml/ IV (Solution) 500 mls @ 250 mls/hr IVPB ONCE PRN PRN Reason: OPEN HEART Albumin Human 500 ml/ IV (Solution) 500 mls @ 250 mls/hr IVPB ONCE PRN PRN Reason: OPEN HEART Albumin Human 500 ml/ IV (Solution) 500 mls @ 250 mls/hr IVPB ONCE PRN PRN Reason: OPEN HEART Aminocaproic Acid 5,000 mg/ (Dextrose/Water) 70 mls @ 200 mls/hr IV ONCE PRN PRN Reason: OPEN HEART Aminocaproic Acid 5,000 mg/ (Dextrose/Water) 70 mls @ 200 mls/hr IV ONCE PRN PRN Reason: OPEN HEART Potassium Chloride 110 meq/Magnesium Sulfate 16 meq/Sodium Bicarbonate 40 ml/ Lidocaine HCl 100 mg/ Dextrose /Water 1,109 mls @ 0 mls/hr IV .Q0M PRN; Protocol; Per Protocol PRN Reason: OPEN HEART Potassium Chloride 25 meq/Sodium Chloride 27 meq/Magnesium Sulfate 16 meq/ Sodium Bicarbonate 40 ml/Lidocaine HCl 100 mg/ Dextrose /Water 1,073.25 mls @ 0 mls/hr IV .Q0M PRN; Per Protocol PRN Reason: OPEN HEART Clevidipine 25 mg/ IV Solution 50 mls @ 2 mls/hr IV .Q24H PRN; Protocol; 1 MG/ HR PRN Reason: OPEN HEART Heparin Sodium (Porcine) 5,000 (unit/ Sodium Chloride) 501 mls @ 0 mls/hr IV ONCE PRN; As Directed PRN Reason: OPEN HEART Insulin Human Regular 100 unit (/ Sodium Chloride) 101 mls @ 0 mls/hr IV .Q0M PRN; Titrate PRN Reason: OPEN HEART Lactated Ringer's (Lactated Ringers) 1,000 mls @ 10 mls/hr IV .Q24H PRN PRN Reason: OPEN HEART Nitroglycerin/Dextrose 50 mg/ (IV Solution) 250 mls @ 1.5 mls/hr IV .Q24H PRN; Protocol; 5 MCG/MIN PRN Reason: OPEN HEART Norepinephrine Bitartrate (Levophed-0.9% Nacl 4 Mg/250ml Pmx) 4 mg in 250 mls @ 0 mls/hr IV .Q0M PRN; Protocol; Titrate PRN Reason: OPEN HEART Papaverine HCl 360 mg/ Sodium (Chloride) 102 mls @ 0 mls/hr IV ONCE PRN; As Directed PRN Reason: OPEN HEART Phenylephrine HCl 40 mg/ (Sodium Chloride) 254 mls @ 0 mls/hr IV .Q0M PRN; Protocol; Per Protocol PRN Reason: OPEN HEART Propofol 500 mg/ IV Solution 50 mls @ 0 mls/hr IV .Q0M PRN; Protocol; Titrate PRN Reason: OPEN HEART Protamine Sulfate 250 mg/ IV (Solution) 25 mls @ 0 mls/hr IV ONCE PRN; As Directed PRN Reason: OPEN HEART Cefazolin Sodium 2 gm/ Sodium (Chloride) 30 mls @ 60 mls/hr IVPB ONCE PRN PRN Reason: OPEN HEART Cefazolin Sodium 2,000 mg/ (Sodium Chloride) 30 mls @ 999 mls/hr IVPB ONCE PRN PRN Reason: OPEN HEART Cefazolin Sodium 1,000 mg/ (Sodium Chloride) 1,000 mls @ 999 mls/hr IRRIGATION ONCE PRN PRN Reason: OPEN HEART Magnesium Sulfate (Magnesium Sulfate Syg) 16.24 meq IV ONCE PRN PRN Reason: OPEN HEART Mannitol (Osmitrol 25%) 12.5 gm IV ONCE PRN PRN Reason: OPEN HEART Mannitol (Osmitrol 25%) 12.5 gm IV ONCE PRN PRN Reason: OPEN HEART Metoprolol Tartrate (Lopressor) 25 mg PO BID [facility] Stop: 01/01/17 23:59 Last Admin: 12/31/16 08:01 Dose: 25 mg Metoprolol Tartrate (Lopressor) 12.5 mg PO ONCE ONE Stop: 01/02/17 05:01 Miscellaneous Information (Rx Info: Iv Contrast Was Given) 1 each MISCELLANE DAILY PRN PRN Reason: Per Protocol Stop: 01/01/17 10:40 Mupirocin (Bactroban Oint) 1 applic NASAL BID [facility] Stop: 01/04/17 21:01 Last Admin: 12/31/16 08:02 Dose: 1 applic Nitroglycerin (Nitro-Bid Oint) 1 inch TOPICAL Q6HR [facility] Last Admin: 12/31/16 11:49 Dose: Not Given Nitroglycerin (Nitrostat) 0.4 mg SUBLINGUAL Q5M PRN PRN Reason: Chest Pain Nitroglycerin/Dextrose (Nitro Drip 25 Mg/250 Ml In D5w Pmx) 1 mg IV ONCE PRN PRN Reason: OPEN HEART Phenylephrine HCl (Reynaldo-Synephrine Syringe) 1 mg IV ONCE PRN PRN Reason: OPEN HEART Phenylephrine HCl (Reynaldo-Synephrine Syringe) 1 mg IV ONCE PRN PRN Reason: OPEN HEART Phenylephrine HCl (Reynaldo-Synephrine Syringe) 1 mg IV ONCE PRN PRN Reason: OPEN HEART Phenylephrine HCl (Reynaldo-Synephrine Syringe) 1 mg IV ONCE PRN PRN Reason: OPEN HEART Protamine Sulfate (Protamine Sulfate) 250 mg IV ONCE PRN PRN Reason: OPEN HEART Sodium Bicarbonate (Sodium Bicarb 8.4% Syr (1 Meq/Ml)) 50 ml IV ONCE PRN PRN Reason: OPEN HEART Plan: 1.the patient was seen and examined by Dr. Wise today. He is scheduled for coronary artery bypass grafting surgery on 01/02/2017. <Evelio Wise - Last Filed: 01/03/17 12:07> Progress Note - Text The patient was seen and examined. I agree with the above assessment and plan. Preoperative studies including cardiac catheterization were personally reviewed today. Patient denies any chest pain or shortness of breath. He is scheduled for surgery on Monday.
--- NOTE | 2016-12-31 15:07 | P.PN ---
Subjective This is a pleasant 56-year-old gentleman with a history of smoking who was admitted to the emergency room with complaints of chest discomfort. He was noted to have mild ST-T wave changes and positive troponins. Patient underwent cardiac catheterization yesterday and was found to have severe triple vessel disease and mildly impaired LV function. Coronary artery bypass grafting was recommended the patient. He has been seen by cardiovascular surgeon and is scheduled for January 02. Upon examination, he is resting comfortably in bed. He denies further complaints of chest discomfort. He has been up walking in the halls without difficulties. He denies any complaints of palpitations, shortness of breath or dizziness. Objective - Vital Signs Vital signs: Vital Signs Temp 96.9 F L 12/31/16 08:00 Pulse 59 L 12/31/16 11:49 Resp 18 12/31/16 11:49 BP 135/73 12/31/16 11:49 Pulse Ox 95 12/31/16 11:49 Intake & Output 12/30/16 12/31/16 12/31/16 18:59 06:59 18:59 Intake Total 1200 825 Output Total 1150 Balance 50 825 Weight 83.6 kg Intake: IV 600 825 Sodium Chloride 0.9% 1, 600 825 000 ml @ 75 mls/hr IV . [id number] MARISSA Rx#:[id number] Oral 600 Output: Urine 1150 Other: Voiding Method Urinal Urinal # Voids 1 - Exam PHYSICAL EXAMINATION: HEENT: Head is atraumatic, normocephalic. Pupils equal, round. Neck is supple. There is no elevated jugular venous pressure. HEART EXAMINATION: Heart sounds regular, S1 and S2 normal. No murmur or gallop heard. CHEST EXAMINATION: Lungs are clear to auscultation and precussion. No chest wall tenderness is noted on palpation or with deep breathing. ABDOMEN: Soft, nontender. Bowel sounds are heard. No organomegaly noted. EXTREMITIES: 2+ peripheral pulses with no evidence of peripheral edema and no calf tenderness noted. Right groin puncture site is soft without hematoma.. NEUROLOGIC patient is awake, alert and oriented x3. . - Labs CBC & Chem 7: 12/31/16 05:45 12/31/16 05:45 Labs: Abnormal Lab Results - Last 24 Hours (Table) 12/30/16 12/30/16 12/30/16 Range/Units 14:30 14:30 19:41 Chloride (98-107) mmol/L CK-MB (CK-2) 3.4 H* 4.1 H* (0.0-2.4) ng/mL Troponin I 0.302 H* 0.507 H* (0.000-0.034) ng/mL LDL Cholesterol, Calc 114 H (0-99) mg/dL 12/31/16 Range/Units 05:45 Chloride 108 H (98-107) mmol/L CK-MB (CK-2) (0.0-2.4) ng/mL Troponin I (0.000-0.034) ng/mL LDL Cholesterol, Calc 101 H (0-99) mg/dL Microbiology - Last 24 Hours (Table) 12/30/16 14:30 Urine Culture - Preliminary Urine,Voided 12/30/16 14:13 Nasal Screen MRSA/MSSA ([facility]) - Preliminary Nasal Swab Assessment and Plan Plan: Assessment and plan #1 non-ST elevated myocardial infarction #2 triple vessel disease #3 smoking #4 peripheral vascular disease From cardiology standpoint, medications were reviewed and we will continue the same at this time. We'll continue to follow the patient perioperatively and provide further recommendations accordingly. AUTOMOTIVE SERVICES MANAGER note has been reviewed, I agree with a documented findings and plan of care. Patient was seen and examined.
--- NOTE | 2016-12-31 18:23 | CONS ---
DATE OF CONSULTATION: 12/31/2016 REASON FOR CONSULTATION: Dyspnea. This is a very pleasant 56-year-old gentleman with no significant past medical history. He has no family physician currently. He has been in his normal state of health until recently, when he had developed progressive shortness of breath and chest pain. The patient does have a 25+ pack ( ) smoking history. He has not been on any medications in the past. He had presented here to the emergency room on 12/30/2016 with complaints of chest discomfort. He was walking up the steps to his office. He developed severe chest discomfort, was brought in by EMS and did get some relief from sublingual nitroglycerin He was found to have non-ST segment elevation myocardial infarction and was subsequently taken to the cardiac catheterization lab and cardiac catheterization revealed severe triple-vessel disease with mildly impaired left ventricular systolic function. The plan is for coronary artery bypass grafting on Monday. Presently, he is seen in consultation on the selective care unit. He is awake and alert, in no acute distress. He has not had any further chest discomfort. He denies any shortness of breath, cough or congestion. He is maintaining good O2 saturations in the mid 90s on room air. He has been afebrile. Past medical history is chronic and ongoing tobacco dependence. Past surgical history is nil. SOCIAL HISTORY: 25+ pack ( ) smoking history, daily alcohol use. No illicit drug use. ALLERGIES: No known drug allergies. Home medications are nil. REVIEW OF SYSTEMS: Fourteen-point review of systems was conducted; all negative other than as mentioned in the HPI. On physical exam, he is alert and oriented, in no acute distress. Vital signs reveal blood pressure 135/73, heart rate 59, respirations 18, temperature is 96.9. He is 95% O2 saturation on room air. His head is normocephalic. Sclerae are anicteric. His neck is supple. Trachea midline. His lungs are clear anterior and posteriorly. His heart is regular. S1, S2. His abdomen is soft, nontender. Bowel sounds are present. There is no peripheral edema. No clubbing. No cyanosis. Peripheral pulses are intact. INVESTIGATIONS: Chest x-ray reveals mild interstitial prominence, some chronic changes without an acute cardiopulmonary process. Echocardiogram revealed preserved left ventricular systolic function with estimated ejection fraction 55% to 60%. No significant valvular abnormalities. Carotid Doppler revealed no hemodynamically significant stenosis. Lab results reveal WBC 6.8, hemoglobin 15.7, platelet count 214,000. Sodium 139, potassium 4.5, chloride 108, CO2 of 24, BUN 10, creatinine 0.81. Peak troponin 0.507. ProBNP 156. His medications are reviewed. IMPRESSION: 1. Severe triple-vessel coronary artery disease. 2. Non-ST segment elevation myocardial infarction. 3. Chronic and ongoing tobacco dependence. The patient was seen by Dr. Ewing. His chest x-ray and labs are reviewed. The patient does have a significant smoking history and bedside spirometry will be performed prior to his surgery. He has been asymptomatic until recently as far as his breathing status and will probably do well post bypass and will plan for rapid sequence extubation. In the interim, will initiate bronchodilators. He is educated regarding the use of the incentive spirometer and cough and deep breathing exercises. Will continue to follow throughout his stay. Will make further recommendations based on his clinical status. I performed a history and physical examination of this patient and discussed the same with the dictator. I agree with the dictator's note. Any additional findings/opinions, etc. will be noted.
[2017-01-01] MEDS: NITROGLYCERIN OINT 1 INCH/GM PACKET TOPICAL SCH ×4 (06:10→22:47)
[2017-01-01 07:12] LABS: Basophils # (A) 0.1 k/uL (0-0.2); Basophils % (A) 1 %; CH 31.5; CHCM 34.3; Eosinophils # (A) 0.1 k/uL (0-0.7); Eosinophils % (A) 2 %; HCT 51.1 % (39.0-53.0); HDW 2.66; HGB 17.3 gm/dL (13.0-17.5); Luc % (Auto) 3; Lymphocytes # (A) 2.2 k/uL (1.0-4.8); Lymphocytes % (A) 30 %; MCH 31.2 pg (25.0-35.0); MCHC 33.8 g/dL (31.0-37.0); MCV 92.3 fL (80.0-100.0); Mean Platelet Volume 6.8; Monocytes # (A) 0.4 k/uL (0-1.0); Monocytes % (A) 6 %; Neutrophils # (A) 4.4 k/uL (1.3-7.7); Neutrophils % (A) 60 %; RBC 5.54 m/uL (4.30-5.90); RDW 13.5 % (11.5-15.5); WBC 7.4 k/uL (3.8-10.6); WBC (Perox) 7.26
[2017-01-01] MEDS: METOPROLOL TARTRATE 25 MG TAB PO SCH ×2 (08:08→20:34)
[2017-01-01] MEDS: ASPIRIN 325 MG TAB PO SCH (08:08)
[2017-01-01] MEDS: MUPIROCIN 2% OINT 22 GM TUBE NASAL SCH ×2 (08:08→20:34)
--- NOTE | 2017-01-01 12:57 | P.PN ---
Progress Note - Text CV Surgery Nursing Patient awake and alert, no distress noted, no specific complaints, no further complaints of chest pain, Vital Signs: Afebrile Vital Signs - 24 hr 12/31/16 12/31/16 01/01/17 16:00 20:00 00:00 Temperature 97.3 F L 97.5 F L 97.6 F Pulse Rate [ 61 74 66 Pulse Oximetery ] Respiratory 18 18 18 Rate Blood Pressure 129/71 151/83 106/58 [Right Arm Supine] O2 Sat by Pulse 93 L 94 L 94 L Oximetry 01/01/17 01/01/17 01/01/17 04:00 08:00 11:54 Temperature 97.7 F 97 F L 97.3 F L Pulse Rate [ 64 79 65 Pulse Oximetery ] Respiratory 18 18 18 Rate Blood Pressure 121/75 128/82 139/76 [Right Arm Supine] O2 Sat by Pulse 94 L 94 L 97 Oximetry Labs: Short CBC 01/01/17 Range/Units 06:20 WBC 7.4 (3.8-10.6) k/uL Hgb 17.3 (13.0-17.5) gm/dL Hct 51.1 (39.0-53.0) % Plt Count 234 (150-450) k/uL Neutrophils # 4.4 (1.3-7.7) k/uL Microbiology 12/30/16 14:13 Nasal Swab Nasal Screen MRSA/MSSA (ALEKSANDER) - Final 12/30/16 14:30 Urine,Voided Urine Culture - Final Lungs: essentially clear throughout, respirations are unlabored. O2 sat: 97% on room air. Heart: S1S2,regular rhythm and rate,negative for S3, gallop or murmur. Remote telemetry showing normal sinus rhythm heart rate 67. knee-high SHIRA hose and sequential compression devices in place to bilateral lower extremities. Abdomen: Soft, Positive bowel sounds present in all 4 quadrants, U/O: adequate. 24 hr Total: Intake & Output 12/30/16 12/31/16 01/01/17 01/02/17 06:59 06:59 06:59 06:59 Intake Total 2024 600 250 Output Total 1150 Balance 875 600 250 Weight 83.6 kg 82.6 kg Active Medications Aminocaproic Acid (Amicar) 5,000 mg IV ONCE PRN PRN Reason: OPEN HEART Aspirin (Aspirin) 325 mg PO DAILY MARISSA Stop: 01/01/17 23:59 Last Admin: 01/01/17 08:08 Dose: 325 mg Aspirin (Aspirin) 325 mg PO ONCE ONE Stop: 01/02/17 05:01 Atorvastatin Calcium (Lipitor) 10 mg PO ONCE ONE Stop: 01/02/17 05:01 Calcium Chloride (Calcium Chloride) 1,000 mg IVP ONCE PRN PRN Reason: OPEN HEART Chlorhexidine Gluconate (Peridex) 15 ml MUCOUS MEM ONCE PRN PRN Reason: OPEN HEART Heparin Sodium (Porcine) (Heparin) 0 unit IV PER PROTOCOL PRN; Protocol PRN Reason: Low PTT Heparin Sodium (Porcine) (Heparin Sodium (1,000 Unit/Ml)) 10,000 unit IV ONCE PRN PRN Reason: OPEN HEART Heparin Sodium (Porcine) (Heparin) 30,000 unit IV ONCE PRN PRN Reason: OPEN HEART Heparin Sodium (Porcine) (Heparin) 30,000 unit IV ONCE PRN PRN Reason: OPEN HEART Heparin Sodium (Porcine) (Heparin) 30,000 unit IV ONCE PRN PRN Reason: OPEN HEART Albumin Human 50 ml/ IV (Solution) 50 mls @ 100 mls/hr IVPB ONCE PRN PRN Reason: OPEN HEART Albumin Human 50 ml/ IV (Solution) 50 mls @ 100 mls/hr IVPB ONCE PRN PRN Reason: OPEN HEART Albumin Human 500 ml/ IV (Solution) 500 mls @ 250 mls/hr IVPB ONCE PRN PRN Reason: OPEN HEART Albumin Human 500 ml/ IV (Solution) 500 mls @ 250 mls/hr IVPB ONCE PRN PRN Reason: OPEN HEART Albumin Human 500 ml/ IV (Solution) 500 mls @ 250 mls/hr IVPB ONCE PRN PRN Reason: OPEN HEART Albumin Human 500 ml/ IV (Solution) 500 mls @ 250 mls/hr IVPB ONCE PRN PRN Reason: OPEN HEART Albumin Human 500 ml/ IV (Solution) 500 mls @ 250 mls/hr IVPB ONCE PRN PRN Reason: OPEN HEART Albumin Human 500 ml/ IV (Solution) 500 mls @ 250 mls/hr IVPB ONCE PRN PRN Reason: OPEN HEART Aminocaproic Acid 5,000 mg/ (Dextrose/Water) 70 mls @ 200 mls/hr IV ONCE PRN PRN Reason: OPEN HEART Aminocaproic Acid 5,000 mg/ (Dextrose/Water) 70 mls @ 200 mls/hr IV ONCE PRN PRN Reason: OPEN HEART Potassium Chloride 110 meq/Magnesium Sulfate 16 meq/Sodium Bicarbonate 40 ml/ Lidocaine HCl 100 mg/ Dextrose /Water 1,109 mls @ 0 mls/hr IV .Q0M PRN; Protocol; Per Protocol PRN Reason: OPEN HEART Potassium Chloride 25 meq/Sodium Chloride 27 meq/Magnesium Sulfate 16 meq/ Sodium Bicarbonate 40 ml/Lidocaine HCl 100 mg/ Dextrose /Water 1,073.25 mls @ 0 mls/hr IV .Q0M PRN; Per Protocol PRN Reason: OPEN HEART Clevidipine 25 mg/ IV Solution 50 mls @ 2 mls/hr IV .Q24H PRN; Protocol; 1 MG/ HR PRN Reason: OPEN HEART Heparin Sodium (Porcine) 5,000 (unit/ Sodium Chloride) 501 mls @ 0 mls/hr IV ONCE PRN; As Directed PRN Reason: OPEN HEART Insulin Human Regular 100 unit (/ Sodium Chloride) 101 mls @ 0 mls/hr IV .Q0M PRN; Titrate PRN Reason: OPEN HEART Lactated Ringer's (Lactated Ringers) 1,000 mls @ 10 mls/hr IV .Q24H PRN PRN Reason: OPEN HEART Nitroglycerin/Dextrose 50 mg/ (IV Solution) 250 mls @ 1.5 mls/hr IV .Q24H PRN; Protocol; 5 MCG/MIN PRN Reason: OPEN HEART Norepinephrine Bitartrate (Levophed-0.9% Nacl 4 Mg/250ml Pmx) 4 mg in 250 mls @ 0 mls/hr IV .Q0M PRN; Protocol; Titrate PRN Reason: OPEN HEART Papaverine HCl 360 mg/ Sodium (Chloride) 102 mls @ 0 mls/hr IV ONCE PRN; As Directed PRN Reason: OPEN HEART Phenylephrine HCl 40 mg/ (Sodium Chloride) 254 mls @ 0 mls/hr IV .Q0M PRN; Protocol; Per Protocol PRN Reason: OPEN HEART Propofol 500 mg/ IV Solution 50 mls @ 0 mls/hr IV .Q0M PRN; Protocol; Titrate PRN Reason: OPEN HEART Protamine Sulfate 250 mg/ IV (Solution) 25 mls @ 0 mls/hr IV ONCE PRN; As Directed PRN Reason: OPEN HEART Cefazolin Sodium 2 gm/ Sodium (Chloride) 30 mls @ 60 mls/hr IVPB ONCE PRN PRN Reason: OPEN HEART Cefazolin Sodium 2,000 mg/ (Sodium Chloride) 30 mls @ 999 mls/hr IVPB ONCE PRN PRN Reason: OPEN HEART Cefazolin Sodium 1,000 mg/ (Sodium Chloride) 1,000 mls @ 999 mls/hr IRRIGATION ONCE PRN PRN Reason: OPEN HEART Magnesium Sulfate (Magnesium Sulfate Syg) 16.24 meq IV ONCE PRN PRN Reason: OPEN HEART Mannitol (Osmitrol 25%) 12.5 gm IV ONCE PRN PRN Reason: OPEN HEART Mannitol (Osmitrol 25%) 12.5 gm IV ONCE PRN PRN Reason: OPEN HEART Metoprolol Tartrate (Lopressor) 25 mg PO BID [facility] Stop: 01/01/17 23:59 Last Admin: 01/01/17 08:08 Dose: 25 mg Metoprolol Tartrate (Lopressor) 12.5 mg PO ONCE ONE Stop: 01/02/17 05:01 Mupirocin (Bactroban Oint) 1 applic NASAL BID [facility] Stop: 01/04/17 21:01 Last Admin: 01/01/17 08:08 Dose: 1 applic Nitroglycerin (Nitro-Bid Oint) 1 inch TOPICAL Q6HR [facility] Last Admin: 01/01/17 06:10 Dose: Not Given Nitroglycerin (Nitrostat) 0.4 mg SUBLINGUAL Q5M PRN PRN Reason: Chest Pain Nitroglycerin/Dextrose (Nitro Drip 25 Mg/250 Ml In D5w Pmx) 1 mg IV ONCE PRN PRN Reason: OPEN HEART Phenylephrine HCl (Reynaldo-Synephrine Syringe) 1 mg IV ONCE PRN PRN Reason: OPEN HEART Phenylephrine HCl (Reynaldo-Synephrine Syringe) 1 mg IV ONCE PRN PRN Reason: OPEN HEART Phenylephrine HCl (Reynaldo-Synephrine Syringe) 1 mg IV ONCE PRN PRN Reason: OPEN HEART Phenylephrine HCl (Reynaldo-Synephrine Syringe) 1 mg IV ONCE PRN PRN Reason: OPEN HEART Protamine Sulfate (Protamine Sulfate) 250 mg IV ONCE PRN PRN Reason: OPEN HEART Sodium Bicarbonate (Sodium Bicarb 8.4% Syr (1 Meq/Ml)) 50 ml IV ONCE PRN PRN Reason: OPEN HEART Plan: 1.the patient was seen and examined by Dr. Noble today. He is scheduled for coronary artery bypass grafting surgery on 01/02/2017.
--- NOTE | 2017-01-01 17:09 | PN ---
56-year-old gentleman who does not really have a primary doctor and has no major medical problems. The patient recently developed shortness of breath and chest pain and was evaluated here and found to have significant coronary disease. He is scheduled to have a bypass grafting on Monday. He did have a non-ST segment elevation myocardial infarction. His cardiac cath was done and showed severe triple vessel disease. He has impaired left ventricular systolic function. Again, the surgery planned for Monday. I did ask for bedside spiral. I am not sure that it was done. Other than his smoking history, he has no other major medical problems. Takes no medications at home on a regular basis. ALLERGIES: Denied. Current vital signs are reviewed. Temperature 97.3, heart rate 65, respiratory rate 18, blood pressure 139/76, room air saturation 97 and mean arterial pressure of 97. Appears in no acute distress. HEENT-ENT examination is grossly unremarkable. Mucous membranes are moist. No oral lesions. Neck is supple. Full range of motion. No adenopathy or thyromegaly. Cardiovascular examination reveals regular rhythm and rate. S1, S2 normal. No S3, S4, or murmur. Lungs are clear. Breath sounds are equal. No wheezes or rhonchi. No crackles. ABDOMEN: Soft. Bowel sounds are heard. No masses or tenderness. EXTREMITIES: Intact. There is no cyanosis, clubbing, or edema. Skin was without rash. NEUROLOGICAL: Examination is nonfocal. Labs are reviewed. CBC is completely normal. The rest of the labs look pretty good other than his elevated troponins. Urine is negative. Hepatitis serology was negative. Chest x-ray from the was showing some chronic changes. Medications are reviewed. ASSESSMENT: 1. Coronary disease, with anticipated bypass grafting on Monday01/02/2017. 2. Severe triple vessel coronary disease. 3. Non- ST segment elevation myocardial infarction. 4. Chronic and ongoing tobacco addiction, rule out chronic obstructive pulmonary disease. PLAN: Will continue to follow. Will see if we could find the spirometry. No additional recommendations are made. Prognosis is generally good, though. He is a little anxious about the surgery and was initially going to transfer down to the [facility] because that is where his family but he has decided to have the surgery up here. Again, no additional recommendations are made.
--- NOTE | 2017-01-01 19:20 | P.PN ---
Subjective Principal diagnosis: Non-ST elevation ND, multivessel disease This 56-year-old gentleman was admitted with a prolonged chest pain and positive troponins. Cardiac catheterization revealed triple-vessel disease. Patient is seen and evaluated by cardiac surgeon. Patient is scheduled to have bypass surgery on Monday. Clinically patient is doing well. Denies any chest pain or shortness of breath or dizziness Objective - Vital Signs Vital signs: Vital Signs Temp 97.3 F L 01/01/17 15:01 Pulse 66 01/01/17 15:01 Resp 18 01/01/17 15:01 BP 138/71 01/01/17 15:01 Pulse Ox 94 L 01/01/17 15:01 Intake & Output 01/01/17 01/01/17 01/02/17 06:59 18:59 06:59 Intake Total 488 Balance 488 Weight 82.6 kg Intake: Oral 488 Other: Voiding Method Urinal # Voids 1 2 - Exam GENERAL EXAM: Patient is alert and oriented and doesn't appear to be in any acute distress HEENT: Normocephalic. Normal reaction of pupils, equal size, normal range of extraocular motion. No erythema or exudates in the throat. NECK: No masses, no nuchal rigidity. CHEST: No chest wall deformity. LUNGS: Equal air entry with no crackles or wheeze. HEART: S1 and S2 normal with no audible mumurs or gallops. Regular rhythm, femorals equal on both sides.. ABDOMEN: No hepatosplenomegaly, normal bowel sounds, no guarding or rigidity. SKIN: No rashes CENTRAL NERVOUS SYSTEM: No focal deficits. EXTREMITIES: No cyanosis, clubbing or edema. - Labs CBC & Chem 7: 01/01/17 06:20 12/31/16 05:45 Labs: Abnormal Lab Results - Last 24 Hours (Table) 12/30/16 Range/Units 14:30 Crossmatch See Detail Microbiology - Last 24 Hours (Table) 12/30/16 14:13 Nasal Screen MRSA/MSSA ([facility]KSANDER) - Final Nasal Swab 12/30/16 14:30 Urine Culture - Final Urine,Voided Assessment and Plan (1) NSTEMI (non-ST elevated myocardial infarction) Status: Acute (2) Smoking Status: Acute (3) Peripheral vascular disease Status: Acute Plan: Continue current medical therapy .patient to have bypass surgery on Monday
[2017-01-02] MEDS ORDERED: MAGNESIUM SULFATE SYG 4.06 MEQ/ML SYRINGE IV PRN (05:00)
[2017-01-02] MEDS ORDERED: LACTATED RINGERS 1,000 ML IV PRN (05:00)
[2017-01-02] MEDS ORDERED: HEPARIN SODIUM 1,000 UNIT/ML VIAL IV PRN (05:00)
[2017-01-02] MEDS ORDERED: ALBUMIN HUMAN 25% 50 ML in EMPTY BAG 1 BAG IVPB PRN (05:00)
[2017-01-02] MEDS ORDERED: NITROGLYCERIN-D5W PMX 25 MG/250 ML BTL IV PRN (05:00)
[2017-01-02] MEDS ORDERED: CLEVIDIPINE BUTYRATE 25 MG in EMPTY BAG 1 BAG IV PRN (05:00)
[2017-01-02] MEDS ORDERED: DEXTROSE 5% IN WATER 1,000 ML with POTASSIUM CHLORIDE 110 MEQ, MAGNESIUM SULFATE 16 MEQ... IV PRN ×5 (05:00)
[2017-01-02] MEDS ORDERED: AMINOCAPROIC ACID 250 MG/ML 20 ML VIAL IV PRN (05:00)
[2017-01-02] MEDS ORDERED: ceFAZolin 2,000 MG in SODIUM CHLORIDE 0.9% 30 ML IVPB PRN (05:00)
[2017-01-02] MEDS ORDERED: DEXTROSE 5% IN WATER 1,000 ML with POTASSIUM CHLORIDE 25 MEQ, SODIUM CHLORIDE 4MEQ/ML V... IV PRN ×6 (05:00)
[2017-01-02] MEDS ORDERED: PROTAMINE SULFATE 10 MG/ML 25 ML VIAL IV PRN (05:00)
[2017-01-02] MEDS ORDERED: PAPAVERINE 360 MG in SODIUM CHLORIDE 0.9% 90 ML IV PRN (05:00)
[2017-01-02] MEDS ORDERED: ceFAZolin 1,000 MG in SODIUM CHLORIDE 0.9% IRRIGATIO 1,000 ML IRRIGATION PRN (05:00)
[2017-01-02] MEDS ORDERED: ASPIRIN 325 MG TAB PO ONE (05:00)
[2017-01-02] MEDS ORDERED: SODIUM BICARB 8.4% 50 ML SYR (1 MEQ/ML) IV PRN (05:00)
[2017-01-02] MEDS ORDERED: NOREPINEPHRIN 4 MG-0.9% NS PMX 4 MG/250 ML ML IV PRN (05:00)
[2017-01-02] MEDS ORDERED: PHENYLEPHRINE 40 MG in SODIUM CHLORIDE 0.9% 250 ML IV PRN (05:00)
[2017-01-02] MEDS ORDERED: CALCIUM CHLORIDE 100 MG/ML 10 ML SYRINGE IVP PRN (05:00)
[2017-01-02] MEDS ORDERED: ALBUMIN HUMAN 5% 500 ML in EMPTY BAG 1 BAG IVPB PRN ×6 (05:00)
[2017-01-02] MEDS ORDERED: INSULIN REGULAR 100 UNIT in SODIUM CHLORIDE 0.9% 100 ML IV PRN (05:00)
[2017-01-02] MEDS ORDERED: CHLORHEXIDINE GLUCONATE 15 ML CUP MUCOUS MEM PRN (05:00)
[2017-01-02] MEDS ORDERED: AMINOCAPROIC ACID 5,000 MG in DEXTROSE 5% IN WATER 50 ML IV PRN ×4 (05:00)
[2017-01-02] MEDS ORDERED: ATORVASTATIN 10 MG TAB PO ONE (05:00)
[2017-01-02] MEDS ORDERED: PHENYLEPHRINE-0.9% NACL SYG 1 MG/10 ML SYRINGE IV PRN ×4 (05:00)
[2017-01-02] MEDS ORDERED: MANNITOL 25% 12.5 GM/50 ML VIAL IV PRN ×2 (05:00)
[2017-01-02] MEDS ORDERED: METOPROLOL TARTRATE 12.5 MG TAB PO ONE (05:00)
[2017-01-02] MEDS ORDERED: HEPARIN SODIUM,PORCINE 5,000 UNIT in SODIUM CHLORIDE 0.9% 500 ML IV PRN (05:00)
[2017-01-02] MEDS ORDERED: PROPOFOL 500 MG in EMPTY BAG 1 BAG IV PRN (05:00)
[2017-01-02] MEDS ORDERED: ceFAZolin 2 GM in SODIUM CHLORIDE 0.9% 30 ML IVPB PRN (05:00)
[2017-01-02] MEDS ORDERED: NITROGLYCERIN-D5W PMX 50 MG in DEXTROSE/WATER 1 250ML.BAG IV PRN (05:00)
[2017-01-02] MEDS ORDERED: PROTAMINE SULFATE 250 MG in EMPTY BAG 1 BAG IV PRN (05:00)
[2017-01-02] MEDS: NITROGLYCERIN OINT 1 INCH/GM PACKET TOPICAL SCH ×2 (05:10→23:37)
[2017-01-02] MEDS: MUPIROCIN 2% OINT 22 GM TUBE NASAL SCH ×2 (05:43→23:19)
[2017-01-02] MEDS ORDERED: PROTAMINE SULFATE 10 MG/ML 5 ML VIAL IV ONE (08:06)
[2017-01-02] MEDS ORDERED: MIDAZOLAM 2 MG/2 ML VIAL ONE (08:06)
[2017-01-02] MEDS ORDERED: HEPARIN SODIUM 1,000 UNIT/ML VIAL ONE (08:06)
[2017-01-02] MEDS ORDERED: ALBUMIN HUMAN 5% 500 ML VIAL IVPB ONE (08:06)
[2017-01-02] MEDS ORDERED: LIDOCAINE 2% SYG (PF) 100 MG/5 ML ONE (08:06)
[2017-01-02] MEDS ORDERED: fentaNYL (PF) 50 MCG/ML 50 ML VIAL ONE (08:06)
[2017-01-02] MEDS ORDERED: ceFAZolin 1,000 MG VIAL ONE (08:06)
[2017-01-02] MEDS ORDERED: PROPOFOL 10 MG/ML 20 ML VIAL IV ONE (08:06)
[2017-01-02] MEDS ORDERED: SODIUM CHLORIDE 0.9% IRRIG 1,000 ML BTL IRRIGATION ONE (08:06)
[2017-01-02] MEDS ORDERED: HEPARIN SODIUM,PORCINE 10,000 UNIT/ML 1 ML VIAL ONE (08:06)
[2017-01-02] MEDS ORDERED: VECURONIUM 10 MG VIAL IV ONE (08:06)
[2017-01-02] MEDS ORDERED: MAGNESIUM SULFATE 4 MEQ/ML 2 ML VIAL ONE (08:06)
[2017-01-02] MEDS ORDERED: fentaNYL (PF) 50 MCG/ML 2 ML AMP ONE (08:06)
[2017-01-02] MEDS ORDERED: ELECTROLYTE-R (PH 7.4) 1,000 ML IV.SOLN IV ONE (08:06)
[2017-01-02] MEDS ORDERED: HEPARIN SODIUM,PORCINE 5,000 UNIT/ML 1 ML VIAL ONE (08:06)
[2017-01-02 08:46] LABS: Glucose,Whole Blood 93 mg/dL (75-99)
--- NOTE | 2017-01-02 11:00 | PN ---
DATE OF SERVICE: 12/31/2016 INTERVAL HISTORY: Mr. Black is a 56-year-old male without significant past medical history except smoking, was brought to the hospital with complaint of chest pain. Patient had chest pain while he was walking to his office from parking lot. Patient underwent cardiac catheterization and found to have triple vessel disease and patient is scheduled for cardiac ( ) on Monday. Initially, patient wanted to transfer to [facility], but he decided to stay at [facility]. Currently, patient denied any complaints of chest pain or short of breath. No nausea, vomiting, or abdominal pain. Patient also suspected to have peripheral vascular disease and lower extremity ultrasound was ordered. Otherwise, no acute overnight issues. REVIEW OF SYSTEMS: CONSTITUTIONAL: No fever. No chills. RESPIRATORY: No cough or sputum production. CARDIOVASCULAR: No chest pain or shortness of breath. ABDOMEN: No nausea, vomiting, abdominal pain. GENITOURINARY: Negative. ENDOCRINE: Negative. PSYCHIATRY: Negative. All other 14-point review of systems negative except as above. CURRENT MEDICATIONS: Reviewed. PHYSICAL EXAMINATION: A 56-year-old male, lying in bed comfortably, awake, alert, oriented x3, appears to be in no apparent distress. VITALS: Blood pressure is 133/73, pulse is 69, respirations 18, temperature afebrile, pulse ox 95% on room air. Laboratory reviewed. HEENT: Atraumatic, normocephalic. Neck is supple. No JVD. CVS: S1, S2 heard. No murmurs, no gallops, no rub. LUNGS: Bilateral air entry is present. No wheezing, no crackles. Nonlabored breathing. ABDOMEN: Soft, nontender. Bowel sounds are present. OFFICE CLERK ASSISTANT: Awake, alert, oriented x3. No focal deficit. EXTREMITIES: No edema. Pulses palpable bilaterally. No clubbing or cyanosis. PSYCHIATRY: Cooperative. LABORATORY DATA: WBC 6.8, hemoglobin 15.7, platelets 214. INR 1.1. Sodium 139, potassium 4.5, chloride 108, bicarb is 24, BUN 10, creatinine 0.81. Albumin 3.8. LDL is 101. IMPRESSION: 1. Acute non-ST elevated myocardial infarction, status post cardiac catheterization. 2. Triple vessel coronary artery disease, currently undergoing coronary artery bypass grafting on Monday. 3. Nicotine addiction. 4. Suspected peripheral vascular disease. 5. Hyperlipidemia with LDL of 101. DISCUSSION AND PLAN: Patient will be continued on telemonitoring. Cardiac ( ) is being planned on 01/02/17. Otherwise, will continue with current management and further recommendations based on the clinical course.
--- NOTE | 2017-01-02 11:04 | PN ---
DATE OF SERVICE: 01/01/2017 INTERVAL HISTORY: Mr. Black is a 56 -year-old male admitted to the hospital with complaint of chest pain and elevated troponin with non-ST segment myocardial infarction. The patient underwent cardiac catheterization and found to have triple vessel disease. Cardiology recommended coronary artery bypass grafting. The patient is scheduled for coronary artery bypass grafting on Monday a.m. Patient today denied any chest pain or shortness of breath. No further episodes of chest pain while in the hospital. Patient is anxious about surgery. Otherwise, he states he is ready for surgery. No fever, no chills. No acute overnight issues. All other review of systems negative except as above. No nausea or vomiting or abdominal pain. Current medications include: 1. Aspirin. 2. Atorvastatin. 3. Heparin. PHYSICAL EXAMINATION: A 56 -year-old male lying in the bed comfortable, alert and oriented times three, appears to be in no apparent distress. VITALS: Blood pressure 151/83, pulse is 74, respiratory rate 18, temperature afebrile. Pulse ox 94% on room air. HEENT: Atraumatic, normocephalic. NECK: Supple. No jugular venous distention. CARDIOVASCULAR: S1, S2 heard. No murmurs, rubs or gallops. LUNGS: Bilateral air entry is present. No wheezing. No crackles. Nonlabored breathing. ABDOMEN: Soft, nontender, bowel sounds present. CENTRAL NERVOUS SYSTEM: Awake, alert and oriented times three. No focal deficits. EXTREMITIES: No edema. Pulses palpable bilaterally. No clubbing or cyanosis. PSYCHIATRY: Cooperative. LABORATORY DATA: Include: WBC 7.4, hemoglobin 7.3, platelets 234, MCV 92.3, RDW 13.5. IMPRESSION: 1. Acute non-ST elevation myocardial infarction. 2. Triple vessel disease status post cardiac catheterization and currently scheduled for coronary artery bypass graft tomorrow. 3. Nicotine addiction. 4. Hyperlipidemia. DISCUSSION AND PLAN: The patient will be continued on current management and scheduled for coronary artery bypass grafting tomorrow and follow up closely. Further recommendations based on clinical course. Currently the patient is chest pain free. SARA
[2017-01-02 11:12] LABS: Glucose,Whole Blood 102 mg/dL (75-99)
[2017-01-02 12:12] LABS: Glucose,Whole Blood 164 mg/dL (75-99)
[2017-01-02 12:55] LABS: Glucose,Whole Blood 163 mg/dL (75-99)
[2017-01-02 13:14] LABS: Glucose,Whole Blood 166 mg/dL (75-99)
[2017-01-02 13:56] LABS: Glucose,Whole Blood 176 mg/dL (75-99)
[2017-01-02] MEDS: PROPOFOL 500 MG in EMPTY BAG 1 BAG IV SCH ×3 (14:30→21:02)
[2017-01-02 14:42] LABS: Glucose,Whole Blood 152 mg/dL (75-99)
[2017-01-02 16:04] LABS: Glucose,Whole Blood 148 mg/dL (75-99)
[2017-01-02] MEDS: DILTIAZEM 125 MG in SODIUM CHLORIDE 0.9% 100 ML IV SCH (16:30)
[2017-01-02] MEDS ORDERED: METOCLOPRAMIDE 5 MG/ML 2 ML VIAL IVP PRN (16:56)
[2017-01-02] MEDS ORDERED: Potassium Replacement Protocol 1 EACH MISC MISCELLANE PRN (16:56)
[2017-01-02] MEDS: IPRATROPIUM-ALBUTEROL 3 ML NEB INHALATION SCH ×3 (16:56→23:29)
[2017-01-02] MEDS ORDERED: BENZOCAINE/MENTHOL LOZENG 1 EACH LOZENGE MUCOUS MEM PRN (16:56)
[2017-01-02] MEDS ORDERED: Phosphorus Replacement Protoco 1 EACH MISC MISCELLANE PRN (16:56)
[2017-01-02] MEDS ORDERED: Magnesium Replacement Protocol 1 EACH MISC MISCELLANE PRN (16:56)
[2017-01-02] MEDS ORDERED: CALCIUM GLUCONATE 2,000 MG in SODIUM CHLORIDE 0.9% 100 ML IVPB PRN (16:56)
[2017-01-02] MEDS ORDERED: ONDANSETRON 4 MG/2 ML VIAL IVP PRN (16:56)
[2017-01-02] MEDS ORDERED: ALBUMIN HUMAN 5% 250 ML in EMPTY BAG 1 BAG IVPB PRN (16:56)
[2017-01-02] MEDS: NITROGLYCERIN-D5W PMX 50 MG in DEXTROSE/WATER 1 250ML.BAG IV SCH (17:00)
[2017-01-02] MEDS: LACTATED RINGERS 1,000 ML IV SCH (17:00)
--- NOTE | 2017-01-02 17:15 | XR ---
EXAMINATION TYPE: XR chest 1V portable DATE OF EXAM: 01/02/2017 5:08 PM CLINICAL HISTORY: Post open cardiac surgery. TECHNIQUE: Single AP portable supine view of the chest is obtained. COMPARISON: Chest x-ray from 3 days earlier. FINDINGS: There is new endotracheal tube with tip at aortic knob level, approximately 4 to 5 cm abov e the paradise. There is new right internal jugular [place]-Estrellita catheter with tip at the level of pulmona ry outflow tracts centrally in the chest. There are new bilateral chest tubes and mediastinal drainag e catheter. There are new sternal wires and mediastinal clips. An azygos lobe/fissure is redemonstrated. Cardiac silhouette size is more prominent and upper limits of normal. There is new mild to moderate central vascular congestion. No pleural effusion or pneumoth orax is seen bilaterally. There is new patchy left lateral basilar atelectasis and/or infiltrate IMPRESSION: 1. New tubes and lines satisfactory position. 2. New mild to moderate central vascular congestion is present with patchy new left lateral basilar a telectasis and/or infiltrate.
[2017-01-02 17:22] LABS: Glucose,Whole Blood 116 mg/dL (75-99)
[2017-01-02 17:23] LABS: ABG Base Excess -0.8 mmol/L; ABG HCO3 23 mmol/L (21-25); ABG PCO2 36 mmHg (35-45); ABG PH 7.42 (7.35-7.45); ABG PO2 236 mmHg (83-108); ABG TCO2 24 mmol/L (19-24)
[2017-01-02 17:29] LABS: INR 1.2 (<1.1); Partial Thromboplastin Time 31.8 sec (22.0-30.0); Prothrombin Time 12.3 sec (9.0-12.0)
[2017-01-02 17:30] LABS: Ionized Calcium 4.9 mg/dL (4.5-5.3)
[2017-01-02 17:38] LABS: ALT 37 U/L (21-72); AST 42 U/L (17-59); Alkaline Phosphatase 28 U/L (38-126); Anion Gap 4 mmol/L; Blood Urea Nitrogen 13 mg/dL (9-20); Calcium 7.7 mg/dL (8.4-10.2); Carbon Dioxide 25 mmol/L (22-30); Chloride 106 mmol/L (98-107); Glucose 105 mg/dL (74-99); Magnesium 2.5 mg/dL (1.6-2.3); Non-African American GFR(MDRD) >60 (>60 ml/min/1.73 sqM); Potassium 4.2 mmol/L (3.5-5.1); Sodium 135 mmol/L (137-145); Total Bilirubin 0.9 mg/dL (0.2-1.3); Total Protein 4.4 g/dL (6.3-8.2)
[2017-01-02] MEDS ORDERED: ALBUMIN HUMAN 5% 250 ML IVPB ONE (17:42)
--- NOTE | 2017-01-02 18:12 | P.PN ---
Subjective 56-year-old male patient with severe triple-vessel coronary artery disease status post non-ST segment elevation myocardial infarction. The patient was taken to the operating room and he underwent four-vessel bypass surgery. I'm seeing this patient immediately after he arrived to the intensive care unit. The patient was sedated with Diprivan and he was, comfortable. He was on a mechanical ventilator and I put him on assist control mode at the rate of 12, tidal volume of 600, FiO2 was dropped down to 50% and he was PEEP of 5. He is loud gases on 100% FiO2 showed a pH of 7.42 with a pCO2 of 36 and pO2 of 236. His chest x-ray post surgery showed satisfactory position of the tubes. There was some mild to moderate central vascular congestion and patchy new left lateral basilar atelectatic change/infiltrates. The patient hemodynamically is stable. Initially his cardiac output was at 4 with an index of 2.0 with a PA pressures of 26/12. He was given 1 amp of the 50 mL of albumin which brought up his index up to 2.9. Is producing adequate amount of urine output. The output from the chest tube is none active at this point. No other significant events otherwise. He is producing adequate amount of urine output. Objective - Vital Signs Vital signs: Vital Signs Temp 98.3 F 01/02/17 06:08 Pulse 72 01/02/17 06:08 Resp 16 01/02/17 06:08 BP 123/75 01/02/17 06:08 Pulse Ox 95 01/02/17 06:08 Intake & Output 01/01/17 01/02/17 01/02/17 18:59 06:59 18:59 Intake Total 488 0 33 Output Total 2220 Balance 488 0 -2187 Weight 82.6 kg Intake: IV 33 Oral 488 0 Output: Urine 720 Estimated Blood Loss 1500 Other: Voiding Method Urinal # Voids 2 1 - Exam Head exam was generally normal. There was no scleral icterus or corneal arcus. Mucous membranes were moist.Neck was supple and without jugular venous distension, thyromegaly, or carotid bruits. Carotids were easily palpable bilaterally. There was no adenopathy. The patient has a right IJ [place]-Estrellita catheter in place with a Cordis. Lung sounds are diminished in lung bases bilaterally otherwise clear. Vessels are equal and symmetrical. No wheezes overall currently crackles.Cardiac exam revealed the PMI to be normally situated and sized. The rhythm was regular and no extrasystoles were noted during several minutes of auscultation. The first and second heart sounds were normal and physiologic splitting of the second heart sound was noted. There were no murmurs, rubs, clicks, or gallops. Sternum stable clean and intact. Chest tubes are all in place.Abdominal exam revealed normal bowel sounds. The abdomen was soft, non-tender, and without masses, organomegaly, or appreciable enlargement of the abdominal aorta.Examination of the extremities revealed easily palpable radial, femoral and pedal pulses. There was no cyanosis, clubbing or edema. - Labs CBC & Chem 7: 01/01/17 06:20 01/02/17 17:11 Labs: Abnormal Lab Results - Last 24 Hours (Table) 12/30/16 01/02/17 01/02/17 Range/Units 14:30 10:58 12:10 PT (9.0-12.0) sec APTT (22.0-30.0) sec ABG pO2 (83-108) mmHg ABG O2 Saturation (94-97) % Sodium (137-145) mmol/L Glucose (74-99) mg/dL POC Glucose (mg/dL) 102 H 164 H (75-99) mg/dL Calcium (8.4-10.2) mg/dL Magnesium (1.6-2.3) mg/dL Alkaline Phosphatase (38-126) U/L Total Protein (6.3-8.2) g/dL Albumin (3.5-5.0) g/dL Crossmatch See Detail 01/02/17 01/02/17 01/02/17 Range/Units 12:41 13:11 13:55 PT (9.0-12.0) sec APTT (22.0-30.0) sec ABG pO2 (83-108) mmHg ABG O2 Saturation (94-97) % Sodium (137-145) mmol/L Glucose (74-99) mg/dL POC Glucose (mg/dL) 163 H 166 H 176 H (75-99) mg/dL Calcium (8.4-10.2) mg/dL Magnesium (1.6-2.3) mg/dL Alkaline Phosphatase (38-126) U/L Total Protein (6.3-8.2) g/dL Albumin (3.5-5.0) g/dL Crossmatch 01/02/17 01/02/17 01/02/17 Range/Units 14:38 15:48 17:10 PT (9.0-12.0) sec APTT (22.0-30.0) sec ABG pO2 236 H (83-108) mmHg ABG O2 Saturation 100.0 H (94-97) % Sodium (137-145) mmol/L Glucose (74-99) mg/dL POC Glucose (mg/dL) 152 H 148 H (75-99) mg/dL Calcium (8.4-10.2) mg/dL Magnesium (1.6-2.3) mg/dL Alkaline Phosphatase (38-126) U/L Total Protein (6.3-8.2) g/dL Albumin (3.5-5.0) g/dL Crossmatch 01/02/17 01/02/17 01/02/17 Range/Units 17:11 17:11 17:21 PT 12.3 H (9.0-12.0) sec APTT 31.8 H (22.0-30.0) sec ABG pO2 (83-108) mmHg ABG O2 Saturation (94-97) % Sodium 135 L (137-145) mmol/L Glucose 105 H (74-99) mg/dL POC Glucose (mg/dL) 116 H (75-99) mg/dL Calcium 7.7 L (8.4-10.2) mg/dL Magnesium 2.5 H (1.6-2.3) mg/dL Alkaline Phosphatase 28 L (38-126) U/L Total Protein 4.4 L (6.3-8.2) g/dL Albumin 2.7 L (3.5-5.0) g/dL Crossmatch Assessment and Plan Plan: Assessment 1 multivessel coronary artery disease status post non-ST segment elevation myocardial infarctions, status post four-vessel bypass surgery patient is postop day #0 2 post thoracotomy left basilar atelectatic changes 3 post thoracotomy ventilator dependence, expected 4 postoperative diminished cardiac output, responded to IV fluids and albumin 5 smoker Plan Continue vent support. FiO2 has been drop down to 50% and we'll gradually wean it down to 40% if the saturation remains above 95%. Gradually wean off the sedation. Assessment weaning parameters once the patient is fully awake and proceed with a spelled his breathing trial. The patient is hemodynamically stable. Monitor the cardiac output and the cardiac index. Give the IV albumin another dose of 2 50 mL of the cardiac output drops. Monitor urine output. Monitor the output from the chest tubes. Anticipate extubation within next 4-6 hours. We'll continue to follow. Based on FEV1 is no other of 82% of predicted.
[2017-01-02] MEDS: CLEVIDIPINE BUTYRATE 25 MG in EMPTY BAG 1 BAG IV SCH ×3 (18:20→21:17)
[2017-01-02 18:27] LABS: Basophils % (A) 0 %; CH 31.6; CHCM 34.7; Eosinophils # (A) 0.1 k/uL (0-0.7); Eosinophils % (A) 1 %; HCT 27.2 % (39.0-53.0); HDW 2.66; Luc # (Auto) 0.06; Luc % (Auto) 1; Lymphocytes # (A) 1.1 k/uL (1.0-4.8); Lymphocytes % (A) 20 %; MCH 32.5 pg (25.0-35.0); MCHC 35.6 g/dL (31.0-37.0); MCV 91.3 fL (80.0-100.0); Mean Platelet Volume 6.9; Monocytes # (A) 0.3 k/uL (0-1.0); Monocytes % (A) 5 %; Neutrophils # (A) 4.1 k/uL (1.3-7.7); Neutrophils % (A) 73 %; RBC 2.98 m/uL (4.30-5.90); RDW 13.3 % (11.5-15.5); WBC 5.7 k/uL (3.8-10.6); WBC (Perox) 5.84
[2017-01-02 18:31] LABS: HGB 9.7 gm/dL (13.0-17.5)
[2017-01-02] MEDS: MORPHINE SULFATE 2 MG/ML SYRINGE IVP PRN ×2 (18:31→22:07)
[2017-01-02 18:32] LABS: Glucose,Whole Blood 96 mg/dL (75-99)
[2017-01-02 19:51] LABS: Glucose,Whole Blood 150 mg/dL (75-99)
[2017-01-02] MEDS: ceFAZolin 2 GM in SODIUM CHLORIDE 0.9% 100 ML IVPB SCH ×2 (19:51→23:04)
[2017-01-02] MEDS: INSULIN REGULAR 100 UNIT in SODIUM CHLORIDE 0.9% 100 ML IV SCH (19:51)
[2017-01-02] MEDS: ACETAMINOPHEN IV (For NPO) 1,000 MG in EMPTY BAG 1 BAG IVPB SCH ×2 (19:51→23:04)
--- NOTE | 2017-01-02 20:02 | XR ---
EXAMINATION TYPE: XR chest 1V portable DATE OF EXAM: 01/02/2017 7:11 PM CLINICAL HISTORY: Post open cardiac surgery with hypoxia. TECHNIQUE: Single AP portable supine view of the chest is obtained. COMPARISON: Chest x-ray from earlier today. FINDINGS: New orogastric tube projects below left hemidiaphragm. Endotracheal tube, bilateral chest tubes, right internal jugular [place]-Estrellita catheter, and mediastinal drainage tube are all stable in dung earance. Post CABG changes with mediastinal clips and sternal wires is redemonstrated. There is redemonstration of azygos lobe. There is persistent mild to moderate central vascular conges tion and mild cardiomegaly. No large pleural effusion or pneumothorax is seen. Osseous structures are intact. IMPRESSION: 1. New orogastric tube is satisfactory in position. 2. Extensive postsurgical changes redemonstrated. There is persistent mild cardiomegaly with mild to moderate central vascular congestion. Consider CHF or fluid overload state. No significant change fro m most recent chest x-ray noted.
[2017-01-02 20:24] LABS: Glucose,Whole Blood 154 mg/dL (75-99)
[2017-01-02 21:12] LABS: Glucose,Whole Blood 157 mg/dL (75-99)
[2017-01-02 22:17] LABS: Glucose,Whole Blood 149 mg/dL (75-99)
[2017-01-02 22:37] LABS: Basophils % (A) 0 %; CH 31.4; CHCM 34.7; Eosinophils # (A) 0.1 k/uL (0-0.7); Eosinophils % (A) 1 %; HCT 30.5 % (39.0-53.0); HDW 2.79; HGB 10.9 gm/dL (13.0-17.5); Luc # (Auto) 0.11; Luc % (Auto) 1; Lymphocytes # (A) 0.9 k/uL (1.0-4.8); Lymphocytes % (A) 12 %; MCH 32.5 pg (25.0-35.0); MCHC 35.8 g/dL (31.0-37.0); MCV 90.9 fL (80.0-100.0); Mean Platelet Volume 7.4; Monocytes # (A) 0.4 k/uL (0-1.0); Monocytes % (A) 4 %; Neutrophils # (A) 6.5 k/uL (1.3-7.7); Neutrophils % (A) 82 %; RBC 3.35 m/uL (4.30-5.90); RDW 13.3 % (11.5-15.5); WBC (Perox) 8.19
[2017-01-02 22:43] LABS: Ionized Calcium 4.8 mg/dL (4.5-5.3)
[2017-01-02] MEDS: HEPARIN SODIUM,PORCINE 5,000 UNIT/ML 1 ML VIAL SQ SCH (22:48)
[2017-01-02 22:51] LABS: Anion Gap 4 mmol/L; Blood Urea Nitrogen 13 mg/dL (9-20); Carbon Dioxide 25 mmol/L (22-30); Chloride 105 mmol/L (98-107); Glucose 132 mg/dL (74-99); Magnesium 2.3 mg/dL (1.6-2.3); Non-African American GFR(MDRD) >60 (>60 ml/min/1.73 sqM); Phosphorous 3.3 mg/dL (2.5-4.5); Potassium 4.7 mmol/L (3.5-5.1); Sodium 134 mmol/L (137-145)
[2017-01-02 23:03] LABS: Glucose,Whole Blood 135 mg/dL (75-99)
[2017-01-02 23:11] LABS: INR 1.1 (<1.1); Partial Thromboplastin Time 32.5 sec (22.0-30.0); Prothrombin Time 11.4 sec (9.0-12.0)
[2017-01-02 23:58] LABS: Glucose,Whole Blood 130 mg/dL (75-99)
[2017-01-03] MEDS: MORPHINE SULFATE 2 MG/ML SYRINGE IVP PRN ×8 (00:17→22:19)
[2017-01-03 01:10] LABS: Glucose,Whole Blood 116 mg/dL (75-99)
[2017-01-03] MEDS: PROPOFOL 500 MG in EMPTY BAG 1 BAG IV SCH ×6 (01:17→23:19)
[2017-01-03 01:56] LABS: Glucose,Whole Blood 107 mg/dL (75-99)
[2017-01-03 03:00] LABS: Basophils % (A) 0 %; CHCM 33.7; Eosinophils % (A) 0 %; HCT 32.2 % (39.0-53.0); HDW 2.61; HGB 10.8 gm/dL (13.0-17.5); Luc # (Auto) 0.17; Luc % (Auto) 2; Lymphocytes # (A) 1.2 k/uL (1.0-4.8); Lymphocytes % (A) 12 %; MCH 31.1 pg (25.0-35.0); MCHC 33.6 g/dL (31.0-37.0); MCV 92.5 fL (80.0-100.0); Mean Platelet Volume 7.2; Monocytes # (A) 0.4 k/uL (0-1.0); Monocytes % (A) 5 %; Neutrophils # (A) 7.8 k/uL (1.3-7.7); Neutrophils % (A) 81 %; RBC 3.48 m/uL (4.30-5.90); RDW 13.5 % (11.5-15.5); WBC 9.7 k/uL (3.8-10.6); WBC (Perox) 9.73
[2017-01-03 03:04] LABS: Glucose,Whole Blood 124 mg/dL (75-99)
[2017-01-03 03:09] LABS: Ionized Calcium 4.8 mg/dL (4.5-5.3)
[2017-01-03 03:14] LABS: INR 1.2 (<1.1); Prothrombin Time 11.7 sec (9.0-12.0)
[2017-01-03] MEDS: IPRATROPIUM-ALBUTEROL 3 ML NEB INHALATION SCH ×8 (03:17→23:38)
[2017-01-03 03:22] LABS: ALT 34 U/L (21-72); AST 68 U/L (17-59); Alkaline Phosphatase 34 U/L (38-126); Anion Gap 9 mmol/L; Blood Urea Nitrogen 11 mg/dL (9-20); Calcium 8.1 mg/dL (8.4-10.2); Carbon Dioxide 24 mmol/L (22-30); Chloride 105 mmol/L (98-107); Glucose 108 mg/dL (74-99); Magnesium 2.3 mg/dL (1.6-2.3); Non-African American GFR(MDRD) >60 (>60 ml/min/1.73 sqM); Phosphorous 3.6 mg/dL (2.5-4.5); Potassium 4.2 mmol/L (3.5-5.1); Sodium 138 mmol/L (137-145); Total Bilirubin 0.6 mg/dL (0.2-1.3); Total Protein 4.9 g/dL (6.3-8.2)
[2017-01-03 05:19] LABS: Glucose,Whole Blood 127 mg/dL (75-99)
[2017-01-03] MEDS: CLEVIDIPINE BUTYRATE 25 MG in EMPTY BAG 1 BAG IV SCH ×3 (05:22→15:09)
[2017-01-03 05:28] LABS: ABG Base Excess -0.6 mmol/L; ABG HCO3 24 mmol/L (21-25); ABG PCO2 38 mmHg (35-45); ABG PO2 63 mmHg (83-108); ABG TCO2 25 mmol/L (19-24)
[2017-01-03 06:28] LABS: Glucose,Whole Blood 128 mg/dL (75-99)
[2017-01-03] MEDS: ACETAMINOPHEN IV (For NPO) 1,000 MG in EMPTY BAG 1 BAG IVPB SCH ×3 (07:11→19:53)
[2017-01-03 07:32] LABS: Glucose,Whole Blood 119 mg/dL (75-99)
[2017-01-03] MEDS: DILTIAZEM 125 MG in SODIUM CHLORIDE 0.9% 100 ML IV SCH ×2 (07:33→21:04)
--- NOTE | 2017-01-03 07:35 | XR ---
EXAMINATION TYPE: XR chest 1V portable DATE OF EXAM: 01/03/2017 6:57 AM COMPARISON: NONE HISTORY: SOB, Follow Up FINDINGS: Indwelling tubes and catheters are unchanged. No change in scattered opacities. Stable appearance of the cardio-mediastinal structures at this time. Pleural effusion unchanged. IMPRESSION: 1. Stable portable chest. Clinical correlation and follow up until resolution is recommended.
[2017-01-03] MEDS: PANTOPRAZOLE 40 MG/10 ML VIAL IVP SCH (08:24)
[2017-01-03] MEDS: HEPARIN SODIUM,PORCINE 5,000 UNIT/ML 1 ML VIAL SQ SCH ×2 (08:24→16:30)
[2017-01-03] MEDS: METOPROLOL TARTRATE 12.5 MG TAB PO SCH ×2 (08:24→22:10)
[2017-01-03] MEDS: ASPIRIN 325 MG TAB PO SCH (08:25)
[2017-01-03] MEDS: CLOPIDOGREL 75 MG TAB PO SCH (08:25)
[2017-01-03] MEDS: ceFAZolin 2 GM in SODIUM CHLORIDE 0.9% 100 ML IVPB SCH (08:27)
[2017-01-03] MEDS: MUPIROCIN 2% OINT 22 GM TUBE NASAL SCH ×2 (08:28→22:09)
[2017-01-03 08:34] LABS: Glucose,Whole Blood 124 mg/dL (75-99)
--- NOTE | 2017-01-03 08:54 | P.PN ---
Subjective 56-year-old male patient with severe triple-vessel coronary artery disease status post non-ST segment elevation myocardial infarction. The patient was taken to the operating room and he underwent four-vessel bypass surgery. I'm seeing this patient immediately after he arrived to the intensive care unit. The patient was sedated with Diprivan and he was, comfortable. He was on a mechanical ventilator and I put him on assist control mode at the rate of 12, tidal volume of 600, FiO2 was dropped down to 50% and he was PEEP of 5. He is loud gases on 100% FiO2 showed a pH of 7.42 with a pCO2 of 36 and pO2 of 236. His chest x-ray post surgery showed satisfactory position of the tubes. There was some mild to moderate central vascular congestion and patchy new left lateral basilar atelectatic change/infiltrates. The patient hemodynamically is stable. Initially his cardiac output was at 4 with an index of 2.0 with a PA pressures of 26/12. He was given 1 amp of the 50 mL of albumin which brought up his index up to 2.9. Is producing adequate amount of urine output. The output from the chest tube is none active at this point. No other significant events otherwise. He is producing adequate amount of urine output. On 01/03/2017, the patient is being seen in follow-up. The patient was kept intubated and mechanically ventilated throughout the night. I have him on a pressure control mode of ventilation at the pressure of 8, PEEP of 5, FiO2 of 60 % and rate of 12. Note that after the patient arrived from the operating room, he was actually taking well and we had dropped his FiO2 down to 60%. He acutely desaturated and had to put them back up to 100% FiO2. Overnight, he was switched a pressure control which improved to synchrony with the mechanical ventilator. He is pulling good tidal volumes at this points more than 700. His morning blood gases showed a pH of 7.4 with a pCO2 of 38 and pO2 of 63 and it was not an FiO2 of 50%. His chest x-ray showing stable postoperative findings. The patient's chest tubes and ET tube are all in good location. Scattered opacities are seen bilaterally and there is some mild cardiomegaly with mild to moderate central vascular congestion. The NG tube is in place and is putting out some minimal amount of coffee-ground material. Hemodynamically, the patient is stable. The patient is on a combination of Cardizem drip at 10 mg an hour and Cleviprex at 8 mg an hour. His most recent cardiac index is at 2.9. PA pressures are 30/18. Chest tubes are all in place and output is less than 50 mL an hour from the mediastinal and the pleural chest tubes. Hemoglobin is stable at this point. The patient remains sedated with Diprivan. The patient is calm and comfortable. Objective - Vital Signs Vital signs: Vital Signs Temp 98.3 F 01/02/17 06:08 Pulse 84 01/03/17 08:30 Resp 16 01/02/17 06:08 BP 123/75 01/02/17 06:08 Pulse Ox 92 L 01/03/17 08:30 Intake & Output 01/02/17 01/03/17 01/03/17 18:59 06:59 18:59 Intake Total 93 366.010 36.667 Output Total 2220 Balance -2127 366.010 36.667 Intake: IV 33 Intake, IV Titration 60 366.010 36.667 Amount Clevidipine Butyrate 25 97.667 36.667 mg In Empty Bag 1 bag @ 1 MG/HR 2 mls/hr IV .Q24H [facility] Rx#:[id number] Diltiazem 125 mg In 10 105 Sodium Chloride 0.9% 100 ml @ 5 MG/HR 5 mls/hr IV .Q24H [facility]SA Rx#:[id number] Insulin Regular 100 unit 23.466 In Sodium Chloride 0.9% 100 ml @ Per Protocol IV .Q0M [facility] Rx#:[id number] Nitroglycerin-D5w Pmx 50 13.5 mg In Dextrose/Water 1 250ml.bag @ 10 MCG/MIN 3 mls/hr IV .Q24H [facility]IS[facility] Rx#: [id number] Propofol 500 mg In Empty 50 126.377 Bag 1 bag @ Titrate IV . Q0M [facility] Rx#:[id number] Output: Urine 720 Estimated Blood Loss 1500 ABP, PAP, CO, CI - Last Documented Arterial Blood Pressure 109/55 Pulmonary Artery Pressure 33/20 Cardiac Output 5.8 Cardiac Index 2.8 - Exam Head exam was generally normal. There was no scleral icterus or corneal arcus. Mucous membranes were moist.Neck was supple and without jugular venous distension, thyromegaly, or carotid bruits. Carotids were easily palpable bilaterally. There was no adenopathy. The patient has a right IJ [place] catheter in place with a Cordis. Lung sounds are diminished in lung bases bilaterally otherwise clear. Vessels are equal and symmetrical. No wheezes overall currently crackles.Cardiac exam revealed the PMI to be normally situated and sized. The rhythm was regular and no extrasystoles were noted during several minutes of auscultation. The first and second heart sounds were normal and physiologic splitting of the second heart sound was noted. There were no murmurs, rubs, clicks, or gallops. Sternum stable clean and intact. Chest tubes are all in place.Abdominal exam revealed normal bowel sounds. The abdomen was soft, non-tender, and without masses, organomegaly, or appreciable enlargement of the abdominal aorta.Examination of the extremities revealed easily palpable radial, femoral and pedal pulses. There was no cyanosis, clubbing or edema. - Labs CBC & Chem 7: 01/03/17 02:30 01/03/17 02:30 Labs: Abnormal Lab Results - Last 24 Hours (Table) 12/30/16 01/02/17 01/02/17 Range/Units 14:30 10:58 12:10 RBC (4.30-5.90) m/uL Hgb (13.0-17.5) gm/dL Hct (39.0-53.0) % Plt Count (150-450) k/uL Neutrophils # (1.3-7.7) k/uL Lymphocytes # (1.0-4.8) k/uL PT (9.0-12.0) sec APTT (22.0-30.0) sec ABG pO2 (83-108) mmHg ABG Total CO2 (19-24) mmol/L ABG O2 Saturation (94-97) % Sodium (137-145) mmol/L Glucose (74-99) mg/dL POC Glucose (mg/dL) 102 H 164 H (75-99) mg/dL Calcium (8.4-10.2) mg/dL Magnesium (1.6-2.3) mg/dL AST (17-59) U/L Alkaline Phosphatase (38-126) U/L Total Protein (6.3-8.2) g/dL Albumin (3.5-5.0) g/dL Crossmatch See Detail 01/02/17 01/02/17 01/02/17 Range/Units 12:41 13:11 13:55 RBC (4.30-5.90) m/uL Hgb (13.0-17.5) gm/dL Hct (39.0-53.0) % Plt Count (150-450) k/uL Neutrophils # (1.3-7.7) k/uL Lymphocytes # (1.0-4.8) k/uL PT (9.0-12.0) sec APTT (22.0-30.0) sec ABG pO2 (83-108) mmHg ABG Total CO2 (19-24) mmol/L ABG O2 Saturation (94-97) % Sodium (137-145) mmol/L Glucose (74-99) mg/dL POC Glucose (mg/dL) 163 H 166 H 176 H (75-99) mg/dL Calcium (8.4-10.2) mg/dL Magnesium (1.6-2.3) mg/dL AST (17-59) U/L Alkaline Phosphatase (38-126) U/L Total Protein (6.3-8.2) g/dL Albumin (3.5-5.0) g/dL Crossmatch 01/02/17 01/02/17 01/02/17 Range/Units 14:38 15:48 17:10 RBC (4.30-5.90) m/uL Hgb (13.0-17.5) gm/dL Hct (39.0-53.0) % Plt Count (150-450) k/uL Neutrophils # (1.3-7.7) k/uL Lymphocytes # (1.0-4.8) k/uL PT (9.0-12.0) sec APTT (22.0-30.0) sec ABG pO2 236 H (83-108) mmHg ABG Total CO2 (19-24) mmol/L ABG O2 Saturation 100.0 H (94-97) % Sodium (137-145) mmol/L Glucose (74-99) mg/dL POC Glucose (mg/dL) 152 H 148 H (75-99) mg/dL Calcium (8.4-10.2) mg/dL Magnesium (1.6-2.3) mg/dL AST (17-59) U/L Alkaline Phosphatase (38-126) U/L Total Protein (6.3-8.2) g/dL Albumin (3.5-5.0) g/dL Crossmatch 01/02/17 01/02/17 01/02/17 Range/Units 17:11 17:11 17:21 RBC (4.30-5.90) m/uL Hgb (13.0-17.5) gm/dL Hct (39.0-53.0) % Plt Count (150-450) k/uL Neutrophils # (1.3-7.7) k/uL Lymphocytes # (1.0-4.8) k/uL PT 12.3 H (9.0-12.0) sec APTT 31.8 H (22.0-30.0) sec ABG pO2 (83-108) mmHg ABG Total CO2 (19-24) mmol/L ABG O2 Saturation (94-97) % Sodium 135 L (137-145) mmol/L Glucose 105 H (74-99) mg/dL POC Glucose (mg/dL) 116 H (75-99) mg/dL Calcium 7.7 L (8.4-10.2) mg/dL Magnesium 2.5 H (1.6-2.3) mg/dL AST (17-59) U/L Alkaline Phosphatase 28 L (38-126) U/L Total Protein 4.4 L (6.3-8.2) g/dL Albumin 2.7 L (3.5-5.0) g/dL Crossmatch 01/02/17 01/02/17 01/02/17 Range/Units 17:51 19:40 20:22 RBC 2.98 L (4.30-5.90) m/uL Hgb 9.7 L D (13.0-17.5) gm/dL Hct 27.2 L (39.0-53.0) % Plt Count 107 L D (150-450) k/uL Neutrophils # (1.3-7.7) k/uL Lymphocytes # (1.0-4.8) k/uL PT (9.0-12.0) sec APTT (22.0-30.0) sec ABG pO2 (83-108) mmHg ABG Total CO2 (19-24) mmol/L ABG O2 Saturation (94-97) % Sodium (137-145) mmol/L Glucose (74-99) mg/dL POC Glucose (mg/dL) 150 H 154 H (75-99) mg/dL Calcium (8.4-10.2) mg/dL Magnesium (1.6-2.3) mg/dL AST (17-59) U/L Alkaline Phosphatase (38-126) U/L Total Protein (6.3-8.2) g/dL Albumin (3.5-5.0) g/dL Crossmatch 01/02/17 01/02/17 01/02/17 Range/Units 21:08 22:14 22:15 RBC 3.35 L (4.30-5.90) m/uL Hgb 10.9 L (13.0-17.5) gm/dL Hct 30.5 L (39.0-53.0) % Plt Count 133 L (150-450) k/uL Neutrophils # (1.3-7.7) k/uL Lymphocytes # 0.9 L (1.0-4.8) k/uL PT (9.0-12.0) sec APTT (22.0-30.0) sec ABG pO2 (83-108) mmHg ABG Total CO2 (19-24) mmol/L ABG O2 Saturation (94-97) % Sodium (137-145) mmol/L Glucose (74-99) mg/dL POC Glucose (mg/dL) 157 H 149 H (75-99) mg/dL Calcium (8.4-10.2) mg/dL Magnesium (1.6-2.3) mg/dL AST (17-59) U/L Alkaline Phosphatase (38-126) U/L Total Protein (6.3-8.2) g/dL Albumin (3.5-5.0) g/dL Crossmatch 01/02/17 01/02/17 01/02/17 Range/Units 22:15 22:15 23:01 RBC (4.30-5.90) m/uL Hgb (13.0-17.5) gm/dL Hct (39.0-53.0) % Plt Count (150-450) k/uL Neutrophils # (1.3-7.7) k/uL Lymphocytes # (1.0-4.8) k/uL PT (9.0-12.0) sec APTT 32.5 H (22.0-30.0) sec ABG pO2 (83-108) mmHg ABG Total CO2 (19-24) mmol/L ABG O2 Saturation (94-97) % Sodium 134 L (137-145) mmol/L Glucose 132 H (74-99) mg/dL POC Glucose (mg/dL) 135 H (75-99) mg/dL Calcium 8.0 L (8.4-10.2) mg/dL Magnesium (1.6-2.3) mg/dL AST (17-59) U/L Alkaline Phosphatase (38-126) U/L Total Protein (6.3-8.2) g/dL Albumin (3.5-5.0) g/dL Crossmatch 01/02/17 01/03/17 01/03/17 Range/Units 23:56 01:07 01:54 RBC (4.30-5.90) m/uL Hgb (13.0-17.5) gm/dL Hct (39.0-53.0) % Plt Count (150-450) k/uL Neutrophils # (1.3-7.7) k/uL Lymphocytes # (1.0-4.8) k/uL PT (9.0-12.0) sec APTT (22.0-30.0) sec ABG pO2 (83-108) mmHg ABG Total CO2 (19-24) mmol/L ABG O2 Saturation (94-97) % Sodium (137-145) mmol/L Glucose (74-99) mg/dL POC Glucose (mg/dL) 130 H 116 H 107 H (75-99) mg/dL Calcium (8.4-10.2) mg/dL Magnesium (1.6-2.3) mg/dL AST (17-59) U/L Alkaline Phosphatase (38-126) U/L Total Protein (6.3-8.2) g/dL Albumin (3.5-5.0) g/dL Crossmatch 01/03/17 01/03/17 01/03/17 Range/Units 02:30 02:30 03:02 RBC 3.48 L (4.30-5.90) m/uL Hgb 10.8 L (13.0-17.5) gm/dL Hct 32.2 L (39.0-53.0) % Plt Count 147 L (150-450) k/uL Neutrophils # 7.8 H (1.3-7.7) k/uL Lymphocytes # (1.0-4.8) k/uL PT (9.0-12.0) sec APTT (22.0-30.0) sec ABG pO2 (83-108) mmHg ABG Total CO2 (19-24) mmol/L ABG O2 Saturation (94-97) % Sodium (137-145) mmol/L Glucose 108 H (74-99) mg/dL POC Glucose (mg/dL) 124 H (75-99) mg/dL Calcium 8.1 L (8.4-10.2) mg/dL Magnesium (1.6-2.3) mg/dL AST 68 H (17-59) U/L Alkaline Phosphatase 34 L (38-126) U/L Total Protein 4.9 L (6.3-8.2) g/dL Albumin 3.2 L (3.5-5.0) g/dL Crossmatch 01/03/17 01/03/17 01/03/17 Range/Units 05:06 05:18 06:24 RBC (4.30-5.90) m/uL Hgb (13.0-17.5) gm/dL Hct (39.0-53.0) % Plt Count (150-450) k/uL Neutrophils # (1.3-7.7) k/uL Lymphocytes # (1.0-4.8) k/uL PT (9.0-12.0) sec APTT (22.0-30.0) sec ABG pO2 63 L (83-108) mmHg ABG Total CO2 25 H (19-24) mmol/L ABG O2 Saturation 92.0 L (94-97) % Sodium (137-145) mmol/L Glucose (74-99) mg/dL POC Glucose (mg/dL) 127 H 128 H (75-99) mg/dL Calcium (8.4-10.2) mg/dL Magnesium (1.6-2.3) mg/dL AST (17-59) U/L Alkaline Phosphatase (38-126) U/L Total Protein (6.3-8.2) g/dL Albumin (3.5-5.0) g/dL Crossmatch 01/03/17 01/03/17 Range/Units 07:30 08:32 RBC (4.30-5.90) m/uL Hgb (13.0-17.5) gm/dL Hct (39.0-53.0) % Plt Count (150-450) k/uL Neutrophils # (1.3-7.7) k/uL Lymphocytes # (1.0-4.8) k/uL PT (9.0-12.0) sec APTT (22.0-30.0) sec ABG pO2 (83-108) mmHg ABG Total CO2 (19-24) mmol/L ABG O2 Saturation (94-97) % Sodium (137-145) mmol/L Glucose (74-99) mg/dL POC Glucose (mg/dL) 119 H 124 H (75-99) mg/dL Calcium (8.4-10.2) mg/dL Magnesium (1.6-2.3) mg/dL AST (17-59) U/L Alkaline Phosphatase (38-126) U/L Total Protein (6.3-8.2) g/dL Albumin (3.5-5.0) g/dL Crossmatch Assessment and Plan Plan: Assessment 1 multivessel coronary artery disease status post non-ST segment elevation myocardial infarctions, status post four-vessel bypass surgery patient is postop day #1 2 post operative hypoxemia probably secondary to microatelectasis. There is some increased interstitial markings bilaterally. Hemodynamically the patient is stable. The patient is on a pressure control mode of ventilation with an FiO2 of 60% and a 5 of PEEP. Patient's pulse ox is in the 92-90% range and pO2 was 63 on 60% FiO2. 3 post thoracotomy ventilator dependence, expected 4 postoperative diminished cardiac output, responded to IV fluids and albumin 5 coffee-ground material through the OG 6 postoperative hypertension currently on a combination of Cleviprex and Cardizem, the rest of the hemodynamics are stable and the patient has a cardiac index of 2.9 is producing adequate amount of urine output. Plan Continue vent support. Gradually wean down the FiO2 again as long as the patient's pulse ox is above 92%. We will stop sedation and address the weaning parameters and see if the patient is able to tolerate this point is breathing trial on him being on a 50% FiO2 with a pressure support of 5 and PEEP of 5. This trial will be done as long as the patient's weaning parameters at adequate and there is no significant oxygen desaturations. I'm not sure if I'm going to extubate this patient today however this a possibility as long as oxygenation improves. Meanwhile, continue the rest of the supportive care. Continue Cardizem drip. Wean off the Cleviprex. Continue the bronchodilators. Continue the aspirin and Plavix. Monitor the output from the OG tube. We'll continue to follow. This occurred cavers that was done and 35 minutes. Time with Patient: Greater than 30
--- NOTE | 2017-01-03 09:59 | OP ---
DATE OF SERVICE: 01/02/2017 SURGEON: Evelio Wise MD HUMAN INTELLIGENCE: 1. BRANDON Winter. 2. MICHEL Gastelum PREOPERATIVE DIAGNOSIS: Coronary artery disease. POSTOPERATIVE DIAGNOSIS: Coronary artery disease. OPERATION: 1. Coronary artery bypass grafting x4 vessels (left internal mammary artery to obtuse marginal artery 1, right internal mammary artery to left descending artery, saphenous vein graft to obtuse marginal artery 3, saphenous vein graft to diagonal artery). 2. Endoscopic vein harvest, right greater saphenous vein. 3. Epiaortic ultrasound. 4. Transesophageal echocardiogram. ANESTHESIA: General. ESTIMATED BLOOD LOSS: SPECIMENS REMOVED: None. COMPLICATIONS: None. OPERATIVE FINDINGS: INDICATION: The patient is a 56-year-old male who normally does not receive medical care but does have a history of tobacco use who presented to the hospital with chest pain. Cardiac catheterization revealed multivessel coronary artery disease. Coronary artery bypass was recommended. The risks, benefits, options and alternatives to this procedure were discussed with the patient. All questions were answered. Consent was obtained. FINDINGS: The left internal mammary artery was good conduit with brisk flow. The right internal mammary artery was good conduit with brisk flow. The saphenous vein was good conduit. The LAD contained diffuse disease and measured 1.3 mm. The diagonal artery measured 1.5 mm. The OM 3 measured 1.5 mm. The OM1 measured 1.3 mm. PROCEDURE IN DETAIL: The patient was taken to the operating room and placed supine on the operating room table. After induction of general anesthesia, he was prepped and draped in the usual sterile fashion. Preoperative transesophageal echocardiogram revealed preserved ejection fraction with no significant valvular pathology. A median sternotomy was performed. The left internal mammary artery was harvested in standard fashion taking care to clip all branches. Next, the right internal mammary artery was harvested in a similar fashion taking care to clip all branches. Intravenous heparin was administered and both vessels were transected distally revealing brisk flow. Of note, the right internal mammary artery was of smaller diameter than the left internal mammary artery. Simultaneously greater saphenous vein was harvested from the right lower extremity using endoscopic technique. All branches were clipped and tied. A pericardial cradle was created. The ascending aorta was palpated and appeared to be free of disease or calcium. Epiaortic ultrasound was also performed. There is no significant calcific disease or atheromatous disease. An arterial cannula was placed in the distal ascending aorta. A venous cannula was placed in the atrial appendage direct into the IVC. Both antegrade and retrograde catheters were placed as well. The patient was then placed on cardiopulmonary bypass with good decompression of the heart. Cold blood potassium cardioplegia was delivered in both antegrade and retrograde fashion to achieve arrest of the heart. Of note cardioplegia was delivered every 15 to 20 minutes while the patient remained under crossclamp. We began by inspecting the distal circumflex artery. The OM 3 appeared to be a good vessel for bypass. An arteriotomy was created. This vessel accepted a 1.5 mm probe. Using saphenous vein in a reverse fashion, an end-to-side anastomosis was created. This was performed using running 7-0 Prolene suture. The grafts hemostatic and had good flow. Next, the obtuse marginal artery 1 was identified. A small arteriotomy was created. There was palpable calcific disease proximal to our entry point. The vessel was approximately 1.3 mm in diameter. Using the left internal mammary artery, an end-to-side anastomosis was created. This was performed using running 8-0 Prolene suture. Both the heel and toe were probed prior to tying the last suture and appeared to be patent. They mammary pedicles intact down to the anterior surface of the heart. Next, the diagonal artery was identified. A small arteriotomy was created. This vessel measured approximately 1.3 mm. Using saphenous vein in a reverse fashion, an end-to-side anastomosis was created. This was performed using running 7-0 Prolene suture. Both heel and toe were probed prior to tying the last suture. The graft was hemostatic and had great flow. The inferior wall was inspected. The distal right coronary artery to posterior descending artery branches appeared to be too small for bypass. This was a nondominant vessel as noted on the cardiac catheterization performed preoperatively. Attention was then turned to the proximal anastomoses. These performed to the ascending aorta in an end to side fashion using running 6-0 Prolene sutures. Finally the LAD was dissected free. A small arteriotomy was created. This vessel had diffuse disease. A soft spot for bypass was identified. Using the right internal mammary artery, an end-to-side anastomosis was created. This was performed using running 8-0 Prolene suture. The mammary artery was small in diameter but did have brisk flow. The graft was hemostatic. The mammary pedicle was then tacked down to the anterior surface of the heart. 1 liter of warm blood was delivered in antegrade fashion. Lidocaine and magnesium were administered as well. The aortic crossclamp was removed. Distal anastomoses were inspected and appeared to be hemostatic. Temporary atrial and ventricular pacer wires were placed and brought through the skin. The patient was then weaned off cardiopulmonary bypass. He without difficulty. The venous cannula was removed. Follow-up transesophageal echocardiogram revealed normal ejection fraction with all shanks of the left ventricle moving well. There is no significant valvular pathology. Protamine was administered. The antegrade catheter was removed. The aortic cannula was removed. The mediastinum was then copiously irrigated with antibiotic solution. All surgical sites were inspected and appeared to be hemostatic. Soft tissue was reapproximated apex of the heart. Care was taken to make sure the lie of the right internal mammary artery was loose and not kinking. Soft tissues were approximated the ascending aorta as well. A straight 32 Japanese chest tube placed in both left and right pleural spaces. A straight 36 Japanese chest tube was placed direct into the mediastinum. These were all secured to the skin using sutures. The sternum was then reapproximated using stainless steel wires in a figure of eight fashion. The remainder of the wound was closed in layers. A sterile dressing was applied. The patient appeared to tolerate the procedure well. There were no immediate complications. He returned to the ICU in critical but stable condition.
[2017-01-03 10:02] LABS: Glucose,Whole Blood 117 mg/dL (75-99)
[2017-01-03 10:49] LABS: Glucose,Whole Blood 120 mg/dL (75-99)
--- NOTE | 2017-01-03 10:55 | P.PN ---
Subjective Principal diagnosis: Non-ST elevation NC, multivessel disease, status post CABG This 56-year-old gentleman was admitted with a prolonged chest pain and positive troponins. Cardiac catheterization revealed triple-vessel disease. Patient is seen and evaluated by cardiac surgeon. Patient is scheduled to have bypass surgery on Monday. Clinically patient is doing well. Denies any chest pain or shortness of breath or dizziness. Patient underwent aortocoronary bypass surgery with VELÁSQUEZ graft to the LAD, DEEPA graft to the OM branch and vein grafts to the diagonal and distal circumflex. Patient is stable hemodynamically. Patient has been having some accelerated junctional rhythm alternating with sinus rhythm. Patient is having some issues with oxygenation and his not still extubated. Sole Cutter working on it and probably will be with later today. His liver and kidney functions are normal. His mental status is intact Objective - Vital Signs Vital signs: Vital Signs Temp 98.3 F 01/02/17 06:08 Pulse 84 01/03/17 08:30 Resp 16 01/02/17 06:08 BP 123/75 01/02/17 06:08 Pulse Ox 92 L 01/03/17 08:30 Intake & Output 01/02/17 01/03/17 01/03/17 18:59 06:59 18:59 Intake Total 521 1424.010 433.667 Output Total 2732 1189 185 Balance -2211 235.010 248.667 Weight 89.9 kg Intake: IV 111 208 47 CO/CI 60 100 20 Pressure Bag 18 108 27 Intake, IV Titration 410 1216.010 386.667 Amount ACETAMINOPHEN IV (For NPO 200 100 ) 1,000 mg In Empty Bag 1 bag @ 400 mls/hr IVPB Q6HR [facility] Rx#:[id number] Albumin Human 5% 250 ml 250 As IVPB .STK-MED ONE Rx#: [id number] Clevidipine Butyrate 25 97.667 36.667 mg In Empty Bag 1 bag @ 1 MG/HR 2 mls/hr IV .Q24H [facility] Rx#:[id number] Diltiazem 125 mg In 10 105 Sodium Chloride 0.9% 100 ml @ 10 MG/HR 10 mls/hr IV .[id number] [facility] Rx#: [id number] Insulin Regular 100 unit 23.466 In Sodium Chloride 0.9% 100 ml @ Per Protocol IV .Q0M [facility] Rx#:[id number] Lactated Ringers 1,000 ml 100 50 @ 10 mls/hr IV .Q24H PRN Rx#:[id number] Lactated Ringers 1,000 ml 100 350 100 @ 50 mls/hr IV .Q20H [facility] Rx#:[id number] Nitroglycerin-D5w Pmx 50 13.5 mg In Dextrose/Water 1 250ml.bag @ 10 MCG/MIN 3 mls/hr IV .Q24H [facility] Rx#: [id number] Propofol 500 mg In Empty 50 126.377 Bag 1 bag @ Titrate IV . Q0M [facility] Rx#:[id number] ceFAZolin 2 gm In Sodium 200 Chloride 0.9% 100 ml @ 100 mls/hr IVPB Q8HR [facility] Rx#:[id number] ceFAZolin 2,000 mg In 100 Sodium Chloride 0.9% 30 ml @ 999 mls/hr IVPB ONCE PRN Rx#:[id number] Output: Chest Tube Drainage 139 467 75 Mediastinal 80 203 45 Right & Left Pleural 59 264 30 Urine 1093 722 110 Estimated Blood Loss 1500 Other: Voiding Method Indwelling Catheter Indwelling Catheter Indwelling Catheter ABP, PAP, CO, CI - Last Documented Arterial Blood Pressure 109/55 Pulmonary Artery Pressure 33/20 Cardiac Output 5.8 Cardiac Index 2.8 - Exam GENERAL EXAM: Patient is intubated. Sedated HEENT: Normocephalic. Normal reaction of pupils, equal size, normal range of extraocular motion. No erythema or exudates in the throat. NECK: No masses, no nuchal rigidity. CHEST: No chest wall deformity. LUNGS: Diminished breath sounds at bases HEART: Irregular heart sounds ABDOMEN: No hepatosplenomegaly, normal bowel sounds, no guarding or rigidity. SKIN: No rashes CENTRAL NERVOUS SYSTEM: No focal deficits. EXTREMITIES: No cyanosis, clubbing or edema. - Labs CBC & Chem 7: 01/03/17 02:30 01/03/17 02:30 Labs: Abnormal Lab Results - Last 24 Hours (Table) 12/30/16 01/02/17 01/02/17 Range/Units 14:30 10:58 12:10 RBC (4.30-5.90) m/uL Hgb (13.0-17.5) gm/dL Hct (39.0-53.0) % Plt Count (150-450) k/uL Neutrophils # (1.3-7.7) k/uL Lymphocytes # (1.0-4.8) k/uL PT (9.0-12.0) sec APTT (22.0-30.0) sec ABG pO2 (83-108) mmHg ABG Total CO2 (19-24) mmol/L ABG O2 Saturation (94-97) % Sodium (137-145) mmol/L Glucose (74-99) mg/dL POC Glucose (mg/dL) 102 H 164 H (75-99) mg/dL Calcium (8.4-10.2) mg/dL Magnesium (1.6-2.3) mg/dL AST (17-59) U/L Alkaline Phosphatase (38-126) U/L Total Protein (6.3-8.2) g/dL Albumin (3.5-5.0) g/dL Crossmatch See Detail 01/02/17 01/02/17 01/02/17 Range/Units 12:41 13:11 13:55 RBC (4.30-5.90) m/uL Hgb (13.0-17.5) gm/dL Hct (39.0-53.0) % Plt Count (150-450) k/uL Neutrophils # (1.3-7.7) k/uL Lymphocytes # (1.0-4.8) k/uL PT (9.0-12.0) sec APTT (22.0-30.0) sec ABG pO2 (83-108) mmHg ABG Total CO2 (19-24) mmol/L ABG O2 Saturation (94-97) % Sodium (137-145) mmol/L Glucose (74-99) mg/dL POC Glucose (mg/dL) 163 H 166 H 176 H (75-99) mg/dL Calcium (8.4-10.2) mg/dL Magnesium (1.6-2.3) mg/dL AST (17-59) U/L Alkaline Phosphatase (38-126) U/L Total Protein (6.3-8.2) g/dL Albumin (3.5-5.0) g/dL Crossmatch 04/24/17 04/24/17 04/24/17 Range/Units 14:38 15:48 17:10 RBC (4.30-5.90) m/uL Hgb (13.0-17.5) gm/dL Hct (39.0-53.0) % Plt Count (150-450) k/uL Neutrophils # (1.3-7.7) k/uL Lymphocytes # (1.0-4.8) k/uL PT (9.0-12.0) sec APTT (22.0-30.0) sec ABG pO2 236 H (83-108) mmHg ABG Total CO2 (19-24) mmol/L ABG O2 Saturation 100.0 H (94-97) % Sodium (137-145) mmol/L Glucose (74-99) mg/dL POC Glucose (mg/dL) 152 H 148 H (75-99) mg/dL Calcium (8.4-10.2) mg/dL Magnesium (1.6-2.3) mg/dL AST (17-59) U/L Alkaline Phosphatase (38-126) U/L Total Protein (6.3-8.2) g/dL Albumin (3.5-5.0) g/dL Crossmatch 01/02/17 01/02/17 01/02/17 Range/Units 17:11 17:11 17:21 RBC (4.30-5.90) m/uL Hgb (13.0-17.5) gm/dL Hct (39.0-53.0) % Plt Count (150-450) k/uL Neutrophils # (1.3-7.7) k/uL Lymphocytes # (1.0-4.8) k/uL PT 12.3 H (9.0-12.0) sec APTT 31.8 H (22.0-30.0) sec ABG pO2 (83-108) mmHg ABG Total CO2 (19-24) mmol/L ABG O2 Saturation (94-97) % Sodium 135 L (137-145) mmol/L Glucose 105 H (74-99) mg/dL POC Glucose (mg/dL) 116 H (75-99) mg/dL Calcium 7.7 L (8.4-10.2) mg/dL Magnesium 2.5 H (1.6-2.3) mg/dL AST (17-59) U/L Alkaline Phosphatase 28 L (38-126) U/L Total Protein 4.4 L (6.3-8.2) g/dL Albumin 2.7 L (3.5-5.0) g/dL Crossmatch 01/02/17 01/02/17 01/02/17 Range/Units 17:51 19:40 20:22 RBC 2.98 L (4.30-5.90) m/uL Hgb 9.7 L D (13.0-17.5) gm/dL Hct 27.2 L (39.0-53.0) % Plt Count 107 L D (150-450) k/uL Neutrophils # (1.3-7.7) k/uL Lymphocytes # (1.0-4.8) k/uL PT (9.0-12.0) sec APTT (22.0-30.0) sec ABG pO2 (83-108) mmHg ABG Total CO2 (19-24) mmol/L ABG O2 Saturation (94-97) % Sodium (137-145) mmol/L Glucose (74-99) mg/dL POC Glucose (mg/dL) 150 H 154 H (75-99) mg/dL Calcium (8.4-10.2) mg/dL Magnesium (1.6-2.3) mg/dL AST (17-59) U/L Alkaline Phosphatase (38-126) U/L Total Protein (6.3-8.2) g/dL Albumin (3.5-5.0) g/dL Crossmatch 01/02/17 01/02/17 01/02/17 Range/Units 21:08 22:14 22:15 RBC 3.35 L (4.30-5.90) m/uL Hgb 10.9 L (13.0-17.5) gm/dL Hct 30.5 L (39.0-53.0) % Plt Count 133 L (150-450) k/uL Neutrophils # (1.3-7.7) k/uL Lymphocytes # 0.9 L (1.0-4.8) k/uL PT (9.0-12.0) sec APTT (22.0-30.0) sec ABG pO2 (83-108) mmHg ABG Total CO2 (19-24) mmol/L ABG O2 Saturation (94-97) % Sodium (137-145) mmol/L Glucose (74-99) mg/dL POC Glucose (mg/dL) 157 H 149 H (75-99) mg/dL Calcium (8.4-10.2) mg/dL Magnesium (1.6-2.3) mg/dL AST (17-59) U/L Alkaline Phosphatase (38-126) U/L Total Protein (6.3-8.2) g/dL Albumin (3.5-5.0) g/dL Crossmatch 01/02/17 01/02/17 01/02/17 Range/Units 22:15 22:15 23:01 RBC (4.30-5.90) m/uL Hgb (13.0-17.5) gm/dL Hct (39.0-53.0) % Plt Count (150-450) k/uL Neutrophils # (1.3-7.7) k/uL Lymphocytes # (1.0-4.8) k/uL PT (9.0-12.0) sec APTT 32.5 H (22.0-30.0) sec ABG pO2 (83-108) mmHg ABG Total CO2 (19-24) mmol/L ABG O2 Saturation (94-97) % Sodium 134 L (137-145) mmol/L Glucose 132 H (74-99) mg/dL POC Glucose (mg/dL) 135 H (75-99) mg/dL Calcium 8.0 L (8.4-10.2) mg/dL Magnesium (1.6-2.3) mg/dL AST (17-59) U/L Alkaline Phosphatase (38-126) U/L Total Protein (6.3-8.2) g/dL Albumin (3.5-5.0) g/dL Crossmatch 01/02/17 01/03/17 01/03/17 Range/Units 23:56 01:07 01:54 RBC (4.30-5.90) m/uL Hgb (13.0-17.5) gm/dL Hct (39.0-53.0) % Plt Count (150-450) k/uL Neutrophils # (1.3-7.7) k/uL Lymphocytes # (1.0-4.8) k/uL PT (9.0-12.0) sec APTT (22.0-30.0) sec ABG pO2 (83-108) mmHg ABG Total CO2 (19-24) mmol/L ABG O2 Saturation (94-97) % Sodium (137-145) mmol/L Glucose (74-99) mg/dL POC Glucose (mg/dL) 130 H 116 H 107 H (75-99) mg/dL Calcium (8.4-10.2) mg/dL Magnesium (1.6-2.3) mg/dL AST (17-59) U/L Alkaline Phosphatase (38-126) U/L Total Protein (6.3-8.2) g/dL Albumin (3.5-5.0) g/dL Crossmatch 01/03/17 01/03/17 01/03/17 Range/Units 02:30 02:30 03:02 RBC 3.48 L (4.30-5.90) m/uL Hgb 10.8 L (13.0-17.5) gm/dL Hct 32.2 L (39.0-53.0) % Plt Count 147 L (150-450) k/uL Neutrophils # 7.8 H (1.3-7.7) k/uL Lymphocytes # (1.0-4.8) k/uL PT (9.0-12.0) sec APTT (22.0-30.0) sec ABG pO2 (83-108) mmHg ABG Total CO2 (19-24) mmol/L ABG O2 Saturation (94-97) % Sodium (137-145) mmol/L Glucose 108 H (74-99) mg/dL POC Glucose (mg/dL) 124 H (75-99) mg/dL Calcium 8.1 L (8.4-10.2) mg/dL Magnesium (1.6-2.3) mg/dL AST 68 H (17-59) U/L Alkaline Phosphatase 34 L (38-126) U/L Total Protein 4.9 L (6.3-8.2) g/dL Albumin 3.2 L (3.5-5.0) g/dL Crossmatch 01/03/17 01/03/17 01/03/17 Range/Units 05:06 05:18 06:24 RBC (4.30-5.90) m/uL Hgb (13.0-17.5) gm/dL Hct (39.0-53.0) % Plt Count (150-450) k/uL Neutrophils # (1.3-7.7) k/uL Lymphocytes # (1.0-4.8) k/uL PT (9.0-12.0) sec APTT (22.0-30.0) sec ABG pO2 63 L (83-108) mmHg ABG Total CO2 25 H (19-24) mmol/L ABG O2 Saturation 92.0 L (94-97) % Sodium (137-145) mmol/L Glucose (74-99) mg/dL POC Glucose (mg/dL) 127 H 128 H (75-99) mg/dL Calcium (8.4-10.2) mg/dL Magnesium (1.6-2.3) mg/dL AST (17-59) U/L Alkaline Phosphatase (38-126) U/L Total Protein (6.3-8.2) g/dL Albumin (3.5-5.0) g/dL Crossmatch 01/03/17 01/03/17 01/03/17 Range/Units 07:30 08:32 09:59 RBC (4.30-5.90) m/uL Hgb (13.0-17.5) gm/dL Hct (39.0-53.0) % Plt Count (150-450) k/uL Neutrophils # (1.3-7.7) k/uL Lymphocytes # (1.0-4.8) k/uL PT (9.0-12.0) sec APTT (22.0-30.0) sec ABG pO2 (83-108) mmHg ABG Total CO2 (19-24) mmol/L ABG O2 Saturation (94-97) % Sodium (137-145) mmol/L Glucose (74-99) mg/dL POC Glucose (mg/dL) 119 H 124 H 117 H (75-99) mg/dL Calcium (8.4-10.2) mg/dL Magnesium (1.6-2.3) mg/dL AST (17-59) U/L Alkaline Phosphatase (38-126) U/L Total Protein (6.3-8.2) g/dL Albumin (3.5-5.0) g/dL Crossmatch 01/03/17 Range/Units 10:48 RBC (4.30-5.90) m/uL Hgb (13.0-17.5) gm/dL Hct (39.0-53.0) % Plt Count (150-450) k/uL Neutrophils # (1.3-7.7) k/uL Lymphocytes # (1.0-4.8) k/uL PT (9.0-12.0) sec APTT (22.0-30.0) sec ABG pO2 (83-108) mmHg ABG Total CO2 (19-24) mmol/L ABG O2 Saturation (94-97) % Sodium (137-145) mmol/L Glucose (74-99) mg/dL POC Glucose (mg/dL) 120 H (75-99) mg/dL Calcium (8.4-10.2) mg/dL Magnesium (1.6-2.3) mg/dL AST (17-59) U/L Alkaline Phosphatase (38-126) U/L Total Protein (6.3-8.2) g/dL Albumin (3.5-5.0) g/dL Crossmatch Assessment and Plan (1) NSTEMI (non-ST elevated myocardial infarction) Status: Acute (2) Smoking Status: Acute (3) Peripheral vascular disease Status: Acute Plan: Patient is on IV Cardizem drip because of the VELÁSQUEZ graft which may be discontinued this afternoon. The rest of the medication to be continued. Attempts to extubate him later today. Further recommendations to follow.
[2017-01-03] MEDS ORDERED: BISACODYL 10 MG SUPP RECTAL PRN (11:57)
[2017-01-03] MEDS ORDERED: MAGNESIUM HYDROXIDE 2,400 MG/10 ML CUP PO PRN (11:57)
[2017-01-03 12:28] LABS: Glucose,Whole Blood 114 mg/dL (75-99)
--- NOTE | 2017-01-03 13:41 | P.PN ---
Progress Note - Text CV Surgery Nursing Principal diagnosis: Coronary artery disease POD #1, status post urgent coronary artery bypass grafting 4 vessels with placement of his left internal mammary artery to his obtuse marginal 1 coronary artery, right internal mammary artery to his left anterior descending coronary artery, reverse greater saphenous vein graft placed to his obtuse marginal coronary artery #3, and a reverse greater saphenous vein graft placed to his diagonal coronary artery. Endoscopic vein harvest of his right greater saphenous vein. Intraoperative transesophageal echocardiogram and epi-aortic ultrasound. Patient remains intubated with mechanical ventilator support, currently sedated on Diprivan drip. He is shaking his head appropriately to yes and no questions. Moving all 4 extremities appropriately. Vital Signs: Afebrile Vital Signs - 24 hr 01/02/17 01/02/17 01/02/17 16:45 17:00 17:15 Pulse Rate 59 L 60 60 Respiratory Rate O2 Sat by Pulse 95 100 100 Oximetry 01/02/17 01/02/17 01/02/17 17:30 17:45 18:00 Pulse Rate 61 61 61 Respiratory Rate O2 Sat by Pulse 100 100 100 Oximetry 01/02/17 01/02/17 01/02/17 18:15 18:30 18:45 Pulse Rate 67 68 71 Respiratory Rate O2 Sat by Pulse 100 95 91 L Oximetry 01/02/17 01/02/17 01/02/17 19:00 19:15 19:30 Pulse Rate 77 78 78 Respiratory Rate O2 Sat by Pulse 85 L 90 L 93 L Oximetry 01/02/17 01/02/17 01/02/17 19:45 19:59 20:00 Pulse Rate 77 73 75 Respiratory Rate O2 Sat by Pulse 93 L 95 Oximetry 01/02/17 01/02/17 01/02/17 20:14 20:15 20:30 Pulse Rate 69 68 66 Respiratory Rate O2 Sat by Pulse 95 93 L Oximetry 01/02/17 01/02/17 01/02/17 20:45 21:00 21:15 Pulse Rate 66 70 65 Respiratory Rate O2 Sat by Pulse 95 97 94 L Oximetry 01/02/17 01/02/17 01/02/17 21:30 21:45 22:00 Pulse Rate 63 65 66 Respiratory Rate O2 Sat by Pulse 94 L 91 L 91 L Oximetry 01/02/17 01/02/17 01/02/17 22:15 22:30 22:45 Pulse Rate 63 63 64 Respiratory Rate O2 Sat by Pulse 93 L 93 L 94 L Oximetry 01/02/17 01/02/17 01/02/17 23:00 23:15 23:20 Pulse Rate 65 67 67 Respiratory Rate O2 Sat by Pulse 95 97 Oximetry 01/02/17 01/02/17 01/02/17 23:30 23:31 23:45 Pulse Rate 67 66 68 Respiratory Rate O2 Sat by Pulse 96 99 Oximetry 01/03/17 01/03/17 01/03/17 00:00 00:15 00:30 Pulse Rate 68 69 68 Respiratory Rate O2 Sat by Pulse 99 98 99 Oximetry 01/03/17 01/03/17 01/03/17 00:45 01:00 01:15 Pulse Rate 68 72 67 Respiratory Rate O2 Sat by Pulse 99 98 95 Oximetry 01/03/17 01/03/17 01/03/17 01:30 02:00 02:30 Pulse Rate 68 65 66 Respiratory Rate O2 Sat by Pulse 95 93 L 95 Oximetry 01/03/17 01/03/17 01/03/17 03:00 03:08 03:20 Pulse Rate 73 74 74 Respiratory Rate O2 Sat by Pulse 92 L Oximetry 01/03/17 01/03/17 01/03/17 03:30 04:00 04:30 Pulse Rate 71 70 63 Respiratory Rate O2 Sat by Pulse 95 92 L 94 L Oximetry 01/03/17 01/03/17 01/03/17 05:00 05:30 06:00 Pulse Rate 77 84 78 Respiratory Rate O2 Sat by Pulse 93 L 93 L 92 L Oximetry 01/03/17 01/03/17 01/03/17 06:30 07:00 07:15 Pulse Rate 84 80 70 Respiratory Rate O2 Sat by Pulse 93 L 91 L Oximetry 01/03/17 01/03/17 01/03/17 07:25 07:30 08:00 Pulse Rate 74 77 86 Respiratory Rate O2 Sat by Pulse 93 L 94 L Oximetry 01/03/17 01/03/17 01/03/17 08:30 09:00 09:30 Pulse Rate 84 80 77 Respiratory Rate O2 Sat by Pulse 92 L 91 L 92 L Oximetry 01/03/17 01/03/17 01/03/17 10:00 10:30 11:00 Pulse Rate 79 77 72 Respiratory Rate O2 Sat by Pulse 93 L 94 L 95 Oximetry 01/03/17 01/03/17 01/03/17 11:09 11:30 11:31 Pulse Rate 73 73 73 Respiratory 13 Rate O2 Sat by Pulse 96 Oximetry 01/03/17 01/03/17 01/03/17 12:00 12:30 13:00 Pulse Rate 72 73 72 Respiratory 15 12 12 Rate O2 Sat by Pulse 92 L 93 L 94 L Oximetry ABP, PAP, CO, CI - Last 8 Hours Arterial Blood Pressure 107/50 Arterial Blood Pressure 118/50 Arterial Blood Pressure 110/57 Arterial Blood Pressure 111/54 Arterial Blood Pressure 108/52 Arterial Blood Pressure 105/57 Arterial Blood Pressure 113/54 Arterial Blood Pressure 109/60 Arterial Blood Pressure 114/56 Arterial Blood Pressure 109/55 Arterial Blood Pressure 118/56 Arterial Blood Pressure 15/15 Arterial Blood Pressure 129/54 Arterial Blood Pressure 128/53 Arterial Blood Pressure 123/57 Arterial Blood Pressure 123/55 Pulmonary Artery Pressure 29/14 Pulmonary Artery Pressure 29/15 Pulmonary Artery Pressure 35/20 Pulmonary Artery Pressure 30/17 Pulmonary Artery Pressure 31/17 Pulmonary Artery Pressure 31/17 Pulmonary Artery Pressure 35/21 Pulmonary Artery Pressure 36/24 Pulmonary Artery Pressure 36/23 Pulmonary Artery Pressure 33/20 Pulmonary Artery Pressure 34/20 Pulmonary Artery Pressure 32/20 Pulmonary Artery Pressure 33/20 Pulmonary Artery Pressure 31/19 Pulmonary Artery Pressure 33/18 Pulmonary Artery Pressure 33/18 Cardiac Output 5.1 Cardiac Output 5.1 Cardiac Output 5.8 Cardiac Output 5.8 Cardiac Output 5.8 Cardiac Output 5.8 Cardiac Output 5.8 Cardiac Output 5.8 Cardiac Output 5.8 Cardiac Output 5.8 Cardiac Output 5.8 Cardiac Output 5.6 Cardiac Output 5.6 Cardiac Output 5.6 Cardiac Output 5.6 Cardiac Output 5.6 Cardiac Index 2.6 Cardiac Index 2.9 Labs: Short CBC 01/02/17 01/02/17 01/03/17 Range/Units 17:51 22:15 02:30 WBC 5.7 8.0 9.7 (3.8-10.6) k/uL Hgb 9.7 L D 10.9 L 10.8 L (13.0-17.5) gm/dL Hct 27.2 L 30.5 L 32.2 L (39.0-53.0) % Plt Count 107 L D 133 L 147 L (150-450) k/uL Neutrophils # 4.1 6.5 7.8 H (1.3-7.7) k/uL BMP 01/02/17 01/02/17 01/03/17 17:11 22:15 02:30 Sodium 135 L 134 L 138 Potassium 4.2 4.7 4.2 Chloride 106 105 105 Carbon Dioxide 25 25 24 BUN 13 13 11 Creatinine 0.67 0.75 0.80 Glucose 105 H 132 H 108 H Calcium 7.7 L 8.0 L 8.1 L Liver Function 01/02/17 01/03/17 Range/Units 17:11 02:30 Total Bilirubin 0.9 0.6 (0.2-1.3) mg/dL AST 42 68 H (17-59) U/L ALT 37 34 (21-72) U/L Alkaline Phosphatase 28 L 34 L (38-126) U/L Albumin 2.7 L 3.2 L (3.5-5.0) g/dL ABG ABG pH 7.40 (7.35-7.45) 01/03/17 05:06 ABG pCO2 38 mmHg (35-45) 01/03/17 05:06 ABG pO2 63 mmHg (83-108) L 01/03/17 05:06 ABG O2 Saturation 92.0 % (94-97) L 01/03/17 05:06 PT/INR, D-dimer PT 11.7 sec (9.0-12.0) 01/03/17 02:30 INR 1.2 (<1.1) 01/03/17 02:30 IV Fluids: Lactated Ringer's at 50 mL per hour Propofol drip at 15 mcg/kg/m Cardizem drip at 10 mg per hour Cleviprex drip at 10 mg per hour Insulin drip at 2 units per hour. Cardiac output: 5.8 Cardiac index: 2.9 Pulmonary artery pressures: 31/17 CVP: 14 Lungs: Few scattered rhonchi throughout, diminished bilateral bases. Respirations are unlabored with mechanical ventilator support. Current ventilator settings are as follows, AC 12 pressure control ventilation 20 FiO2 60% PEEP of 5. O2 sat: 92% with mechanical ventilator support with FiO2 of 60%. Heart: S1S2, regular rhythm and rate, negative for S3, or gallop. Bedside telemetry showing junctional rhythm with occasional sinus beats heart rate 77. Sternum stable, chest incision clean with silver dressing clean and dry. Heart hugger in place. Right leg incisions clean dry and well approximated. No drainage noted. Knee-high SHIRA hose and sequential compression devices in place to bilateral lower extremities. Abdomen: Soft, Positive bowel sounds present in all 4 quadrants. OG tube in place evacuating coffee-ground drainage. 550 mL output since surgery. CBGs: 114-130 mg/dL in the last 24 hours. U/O: Adequate, Zavala catheter for accurate I&O. Chest Tubes: Mediastinal chest tube without air leak, remains to low continuous wall suction. 130 mL output in the last 8 hours, 330 mL output since surgery. Right and left pleural chest tube without air leak, remains to low continuous wall suction. 120 mL output in the last 8 hours, 430 mL output since surgery. 24 hr Total: Intake & Output 01/01/17 01/02/17 01/03/17 01/04/17 06:59 06:59 06:59 06:59 Intake Total 705 103 3942.010 601.667 Output Total 3921 261 Balance 600 488 -1975.990 340.667 Weight 82.6 kg 82.6 kg 89.9 kg Active Medications Hydrocodone Bitart/Acetaminophen (Lamont 5-325) 2 each PO Q4HR PRN PRN Reason: Severe Pain Hydrocodone Bitart/Acetaminophen (Lamont 5-325) 1 each PO Q4HR PRN PRN Reason: Moderate Pain Albuterol/Ipratropium (Duoneb 0.5 Mg-3 Mg/3 Ml Soln) 3 ml INHALATION RT-Q4H PENDING SALE TO [facility] Last Admin: 01/03/17 11:09 Dose: 3 ml Albuterol/Ipratropium (Duoneb 0.5 Mg-3 Mg/3 Ml Soln) 3 ml INHALATION RT-Q2H PRN PRN Reason: Shortness Of Breath Or Wheezing Albuterol/Ipratropium (Duoneb 0.5 Mg-3 Mg/3 Ml Soln) 3 ml INHALATION RT-QID PENDING SALE TO [facility] Last Admin: 01/03/17 13:18 Dose: Not Given Aspirin (Aspirin) 325 mg PO DAILY PENDING SALE TO [facility] Last Admin: 01/03/17 08:25 Dose: 325 mg Atorvastatin Calcium (Lipitor) 40 mg PO HS PENDING SALE TO [facility] Benzocaine/Menthol (Cepacol Lozenge) 1 each MUCOUS MEM Q2H PRN PRN Reason: Sore Throat Bisacodyl (Dulcolax) 10 mg RECTAL DAILY PRN PRN Reason: Constipation Clopidogrel Bisulfate (Plavix) 75 mg PO DAILY PENDING SALE TO [facility] Last Admin: 01/03/17 08:25 Dose: 75 mg Heparin Sodium (Porcine) (Heparin) 5,000 unit SQ Q8HR PENDING SALE TO [facility] Last Admin: 01/03/17 08:24 Dose: 5,000 unit Diltiazem HCl 125 mg/ Sodium (Chloride) 125 mls @ 10 mls/hr IV .[id number] MARISSA PRN Reason: 10 MG/HR Last Admin: 01/03/17 07:33 Dose: 10 mg/hr, 10 mls/hr Acetaminophen 1,000 mg/ IV (Solution) 100 mls @ 400 mls/hr IVPB Q6HR PENDING SALE TO [facility] Stop: 01/03/17 18:01 Last Admin: 01/03/17 12:12 Dose: 400 mls/hr Albumin Human 250 ml/ IV (Solution) 250 mls @ 250 mls/hr IVPB Q1HR PRN PRN Reason: For Volume Stop: 01/04/17 16:57 Last Admin: 01/02/17 17:15 Dose: 250 mls/hr Calcium Gluconate 2,000 mg/ (Sodium Chloride) 120 mls @ 100 mls/hr IVPB ONCE PRN PRN Reason: Ionized Calcium less than 4.4 Stop: 01/03/17 16:57 Clevidipine 25 mg/ IV Solution 50 mls @ 2 mls/hr IV .Q24H MARISSA; 1 MG/HR PRN Reason: Protocol Last Admin: 01/03/17 07:12 Dose: 10 mg/hr, 20 mls/hr Insulin Human Regular 100 unit (/ Sodium Chloride) 101 mls @ 0 mls/hr IV .Q0M MARISSA; Per Protocol PRN Reason: Protocol Last Titration: 01/03/17 05:21 Dose: 2.5 units/hr, 2.52 mls/hr Lactated Ringer's (Lactated Ringers) 1,000 mls @ 50 mls/hr IV .Q20H MARISSA Last Admin: 01/02/17 17:00 Dose: 50 mls/hr Nitroglycerin/Dextrose 50 mg/ (IV Solution) 250 mls @ 3 mls/hr IV .Q24H MARISSA PRN Reason: 10 MCG/MIN Last Infusion: 01/02/17 21:30 Dose: 0 mcg/min, 0 mls/hr Propofol 500 mg/ IV Solution 50 mls @ 0 mls/hr IV .Q0M MARISSA; Titrate PRN Reason: Protocol Last Admin: 01/03/17 12:13 Dose: 15 mcg/kg/min, 7.43 mls/hr Magnesium Hydroxide (Milk Of Magnesia) 2,400 mg PO BID PRN PRN Reason: Constipation Metoclopramide HCl (Reglan) 10 mg IVP Q4H PRN PRN Reason: Nausea And Vomiting Metoprolol Tartrate (Lopressor) 12.5 mg PO BID PENDING SALE TO [facility] Last Admin: 01/03/17 08:24 Dose: 12.5 mg Miscellaneous Information (Magnesium Per Protocol) 1 each MISCELLANE DAILY PRN ; Protocol PRN Reason: Per Protocol Miscellaneous Information (Phosphorus Per Protocol) 1 each MISCELLANE DAILY PRN ; Protocol PRN Reason: Per Protocol Miscellaneous Information (Potassium Per Protocol) 1 each MISCELLANE DAILY PRN ; Protocol PRN Reason: Per Protocol Morphine Sulfate (Morphine Sulfate (Inj)) 2 mg IVP Q2H PRN PRN Reason: Severe Pain Last Admin: 01/03/17 11:10 Dose: 2 mg Mupirocin (Bactroban Oint) 1 applic NASAL BID PENDING SALE TO [facility] Stop: 01/05/17 21:01 Last Admin: 01/03/17 08:28 Dose: 1 applic Ondansetron HCl (Zofran) 4 mg IVP Q6HR PRN PRN Reason: Nausea And Vomiting Oxycodone HCl (Oxyir) 10 mg PO Q4H PRN PRN Reason: Severe Pain Stop: 01/03/17 23:59 Oxycodone HCl (Oxyir) 5 mg PO Q4H PRN PRN Reason: Moderate Pain Stop: 01/03/17 23:59 Pantoprazole Sodium (Protonix) 40 mg IVP DAILY PENDING SALE TO [facility] Last Admin: 01/03/17 08:24 Dose: 40 mg Senna/Docusate Sodium (Senokot-S) 2 each PO HS PENDING SALE TO [facility] Plan: 1. Continue aspirin, statin, beta deisy. 2. Pulmonary and ventilator management per Dr. Hoff recommendations. 3. GI and DVT prophylaxis in place. 4. Blood sugar management per Dr. Carver's recommendations. 5. CBC, CMP and portable chest x-ray in a.m. 6. Continue chest tube is to low continuous wall suction. 7. Zavala catheter for accurate I&O. 8. Further recommendations as patient progresses.
[2017-01-03 14:09] LABS: Glucose,Whole Blood 106 mg/dL (75-99)
[2017-01-03] MEDS: LACTATED RINGERS 1,000 ML IV SCH (15:05)
[2017-01-03 15:44] LABS: Glucose,Whole Blood 99 mg/dL (75-99)
[2017-01-03 16:09] LABS: Glucose,Whole Blood 102 mg/dL (75-99)
[2017-01-03 17:09] LABS: Glucose,Whole Blood 106 mg/dL (75-99)
[2017-01-03 18:00] LABS: Anion Gap 5 mmol/L; Blood Urea Nitrogen 12 mg/dL (9-20); Carbon Dioxide 25 mmol/L (22-30); Chloride 104 mmol/L (98-107); Glucose 103 mg/dL (74-99); Magnesium 2.1 mg/dL (1.6-2.3); Non-African American GFR(MDRD) >60 (>60 ml/min/1.73 sqM); Potassium 3.9 mmol/L (3.5-5.1); Sodium 134 mmol/L (137-145)
[2017-01-03 18:06] LABS: Glucose,Whole Blood 108 mg/dL (75-99)
[2017-01-03] MEDS ORDERED: DEXTROSE 5% IN WATER 100 ML with AMIODARONE 150 MG IV ONE (18:09)
[2017-01-03] MEDS ORDERED: POTASSIUM CHLORIDE ORAL LIQUID 40 MEQ/30 ML CUP NG-TUBE SCH (19:00)
[2017-01-03 19:02] LABS: Glucose,Whole Blood 119 mg/dL (75-99)
[2017-01-03] MEDS: NITROGLYCERIN-D5W PMX 50 MG in DEXTROSE/WATER 1 250ML.BAG IV SCH ×2 (19:10→21:30)
[2017-01-03] MEDS: AMIODARONE 450 MG in DEXTROSE 5% IN WATER 250 ML IV SCH ×2 (19:10)
[2017-01-03 19:53] LABS: Glucose,Whole Blood 149 mg/dL (75-99)
[2017-01-03] MEDS ORDERED: WATER ONE (21:21)
[2017-01-03] MEDS ORDERED: DEXTROSE ONE (21:21)
[2017-01-03 22:07] LABS: Glucose,Whole Blood 123 mg/dL (75-99)
[2017-01-03] MEDS: ATORVASTATIN 40 MG TAB PO SCH (22:09)
[2017-01-03] MEDS: CHLORHEXIDINE GLUCONATE 15 ML CUP MUCOUS MEM SCH (22:09)
[2017-01-03] MEDS: SENNOSIDES-DOCUSATE SODIUM 1 EACH TAB PO SCH (22:12)
[2017-01-03 23:19] LABS: Glucose,Whole Blood 109 mg/dL (75-99)
[2017-01-04] MEDS: MORPHINE SULFATE 2 MG/ML SYRINGE IVP PRN ×5 (00:16→17:08)
[2017-01-04 00:19] LABS: Glucose,Whole Blood 115 mg/dL (75-99)
[2017-01-04] MEDS: AMIODARONE 450 MG in DEXTROSE 5% IN WATER 250 ML IV SCH ×6 (01:00→21:07)
[2017-01-04] MEDS: CLEVIDIPINE BUTYRATE 25 MG in EMPTY BAG 1 BAG IV SCH ×6 (01:00→15:18)
[2017-01-04 01:11] LABS: Glucose,Whole Blood 119 mg/dL (75-99)
[2017-01-04] MEDS: HEPARIN SODIUM,PORCINE 5,000 UNIT/ML 1 ML VIAL SQ SCH ×3 (01:39→15:18)
[2017-01-04 01:42] LABS: Magnesium 2.2 mg/dL (1.6-2.3); Potassium 3.9 mmol/L (3.5-5.1)
[2017-01-04 02:06] LABS: Glucose,Whole Blood 119 mg/dL (75-99)
[2017-01-04] MEDS: PROPOFOL 500 MG in EMPTY BAG 1 BAG IV SCH ×4 (02:30→08:05)
[2017-01-04] MEDS ORDERED: POTASSIUM CHLORIDE ORAL LIQUID 40 MEQ/30 ML CUP NG-TUBE SCH (03:00)
[2017-01-04] MEDS: IPRATROPIUM-ALBUTEROL 3 ML NEB INHALATION SCH ×5 (03:13→20:38)
[2017-01-04 04:08] LABS: Glucose,Whole Blood 122 mg/dL (75-99)
[2017-01-04 05:09] LABS: Glucose,Whole Blood 136 mg/dL (75-99)
[2017-01-04] MEDS: INSULIN REGULAR 100 UNIT in SODIUM CHLORIDE 0.9% 100 ML IV SCH (05:10)
[2017-01-04 05:15] LABS: ABG HCO3 24 mmol/L (21-25); ABG PCO2 35 mmHg (35-45); ABG PH 7.44 (7.35-7.45); ABG PO2 61 mmHg (83-108); ABG TCO2 25 mmol/L (19-24)
[2017-01-04 05:27] LABS: Basophils % (A) 0 %; CH 31.5; CHCM 34.7; Eosinophils # (A) 0.1 k/uL (0-0.7); Eosinophils % (A) 1 %; HCT 29.6 % (39.0-53.0); HDW 2.74; HGB 10.7 gm/dL (13.0-17.5); Luc # (Auto) 0.13; Luc % (Auto) 2; Lymphocytes % (A) 12 %; MCHC 36.2 g/dL (31.0-37.0); MCV 91.2 fL (80.0-100.0); Mean Platelet Volume 7.6; Monocytes # (A) 0.4 k/uL (0-1.0); Monocytes % (A) 5 %; Neutrophils # (A) 6.6 k/uL (1.3-7.7); Neutrophils % (A) 80 %; RBC 3.24 m/uL (4.30-5.90); RDW 13.5 % (11.5-15.5); WBC 8.3 k/uL (3.8-10.6); WBC (Perox) 8.45
[2017-01-04 05:34] LABS: INR 1.2 (<1.1); Prothrombin Time 11.9 sec (9.0-12.0)
[2017-01-04 05:38] LABS: Ionized Calcium 4.8 mg/dL (4.5-5.3)
[2017-01-04 05:47] LABS: ALT 36 U/L (21-72); AST 71 U/L (17-59); Alkaline Phosphatase 43 U/L (38-126); Anion Gap 3 mmol/L; Blood Urea Nitrogen 12 mg/dL (9-20); Calcium 8.1 mg/dL (8.4-10.2); Carbon Dioxide 25 mmol/L (22-30); Chloride 105 mmol/L (98-107); Glucose 124 mg/dL (74-99); Magnesium 2.2 mg/dL (1.6-2.3); Non-African American GFR(MDRD) >60 (>60 ml/min/1.73 sqM); Potassium 4.3 mmol/L (3.5-5.1); Sodium 133 mmol/L (137-145); Total Bilirubin 0.6 mg/dL (0.2-1.3); Total Protein 4.7 g/dL (6.3-8.2)
[2017-01-04 07:13] LABS: Glucose,Whole Blood 135 mg/dL (75-99)
[2017-01-04] MEDS: PANTOPRAZOLE 40 MG/10 ML VIAL IVP SCH (07:48)
[2017-01-04] MEDS: CHLORHEXIDINE GLUCONATE 15 ML CUP MUCOUS MEM SCH ×2 (07:49→21:08)
[2017-01-04] MEDS: METOPROLOL TARTRATE 12.5 MG TAB PO SCH (07:49)
[2017-01-04] MEDS: CLOPIDOGREL 75 MG TAB PO SCH (07:49)
[2017-01-04] MEDS: ASPIRIN 325 MG TAB PO SCH (07:49)
[2017-01-04] MEDS: MUPIROCIN 2% OINT 22 GM TUBE NASAL SCH ×2 (07:50→21:09)
[2017-01-04 07:56] LABS: Glucose,Whole Blood 120 mg/dL (75-99)
[2017-01-04 08:58] LABS: Glucose,Whole Blood 123 mg/dL (75-99)
[2017-01-04] MEDS: LACTATED RINGERS 1,000 ML IV SCH (09:32)
--- NOTE | 2017-01-04 09:32 | XR ---
EXAMINATION TYPE: XR chest 1V portable DATE OF EXAM: 01/04/2017 7:05 AM COMPARISON: 01/03/2017 INDICATION: Postop CABG previous abnormal chest TECHNIQUE: Single frontal view of the chest is obtained. FINDINGS: The heart size is normal. The pulmonary vasculature is normal. Diffuse scattered infiltrates are present bilaterally most likely on subsegmental atelectasis. Azygos fissure is present on the right. Bilateral chest tubes are present. Nasogastric tube transverses the thorax. An endotracheal tube is above the [place]. [place] catheter tip is in the main pulmonary [place] region. Mediastinal tube is present. Epicardial leads may be present. IMPRESSION: 1. Scattered subsegmental atelectasis, changing from prior exam. 2. Multiple lines and catheters discussed above.
[2017-01-04 09:57] LABS: Glucose,Whole Blood 124 mg/dL (75-99)
[2017-01-04] MEDS ORDERED: FUROSEMIDE 10 MG/ML 2 ML VIAL IV STA (10:15)
--- NOTE | 2017-01-04 10:15 | PN ---
Mr. Black is a 56 -year-old male admitted to the hospital with complaints of chest pain and found to have elevated troponin with non-ST elevated KS, the patient underwent cardiac catheterization and found to have triple vessel disease. The patient was seen by cardiac surgery and recommended triple bypass. The patient underwent bypass graft on 01/02/2017, postoperative day one. Currently patient is intubated and sedated. Chest x-ray this morning showed stable portable chest. Otherwise, patient is hemodynamically stable. The patient failed weaning trial today. Possible extubation tomorrow. Pulmonary and cardiology is following this patient. Complete review of systems could not be obtained from the patient. Current medications include: 1. [place] 5. 2. Duoneb. 3. Amiodarone. 4. Aspirin. 5. Atorvastatin. 6. Dulcolax. 7. Peridex. 8. Clopidogrel. 9. Cardizem drip. 10. Heparin subcu. 11. Insulin sliding scale. 12. Ringer lactate. 13. Milk of magnesia. 14. Reglan. 15. Lopressor. 16. Morphine. 17. ( ). 18. Oxycodone. 19. Propofol. 20. ( ). PHYSICAL EXAMINATION: 56 -year-old male, currently sedated and intubated. VITALS: Blood pressure is 113/49, pulse 71, respiratory rate 15, temperature afebrile. Pulse ox 98% on 45% FiO2. HEENT: Atraumatic, normocephalic. Neck is supple. No JVD. ( ) in place. CVS: S1, S2 heard. Surgical scar is bandaged at this time. No murmurs. No gallop. LUNGS: Bilateral air entry is present. Minimal rhonchi positive. No wheezing. Abdomen is soft, bowel sounds are present. TREATMENT COUNSELOR: Could not be assessed. EXTREMITIES: No edema. Pulses palpable bilaterally. No clubbing or cyanosis. PSYCHIATRIC: Could not be assessed completely. LABORATORY DATA: WBC 9.7, hemoglobin 10.8, platelets 147. Sodium 138, potassium 4.2, chloride 104, bicarb is 24. BUN 11 and creatinine 0.8, calcium 8.1. AST 68. Alk phos 34, total protein 4.9, albumin 3.2. IMPRESSION: 1. Triple-vessel coronary artery disease, status post coronary artery bypass graft postoperative day one. 2. Acute non-ST elevation myocardial infarction on admission with chest pain. 3. Hypertension. 4. Hyperlipidemia. 5. Nicotine addiction. 6. Ventilator dependent respiratory failure post surgery. RECOMMENDATIONS AND DISCUSSION: The patient will be continued on current management. Pulmonary is following and possible weaning trial tomorrow. Continue with bronchodilators and continue the aspirin and Plavix. Currently on OG-tube. Will follow up closely. Further recommendations based on clinical course. The patient currently monitored in the ICU.
[2017-01-04 11:06] LABS: ABG Base Excess -0.8 mmol/L; ABG HCO3 22 mmol/L (21-25); ABG Oxygen Saturation 95.9 % (94-97); ABG PCO2 30 mmHg (35-45); ABG PH 7.49 (7.35-7.45); ABG PO2 73 mmHg (83-108); ABG TCO2 23 mmol/L (19-24)
[2017-01-04 11:24] LABS: Glucose,Whole Blood 124 mg/dL (75-99)
[2017-01-04 12:03] LABS: ABG Base Excess 0.3 mmol/L; ABG HCO3 24 mmol/L (21-25); ABG Oxygen Saturation 99.9 % (94-97); ABG PCO2 37 mmHg (35-45); ABG PH 7.43 (7.35-7.45); ABG PO2 244 mmHg (83-108); ABG TCO2 25 mmol/L (19-24)
[2017-01-04 12:04] LABS: ABG Base Excess -0.8 mmol/L; ABG HCO3 23 mmol/L (21-25); ABG Oxygen Saturation 99.5 % (94-97); ABG PCO2 37 mmHg (35-45); ABG PH 7.41 (7.35-7.45); ABG PO2 167 mmHg (83-108); ABG TCO2 24 mmol/L (19-24)
[2017-01-04 12:05] LABS: ABG Base Excess 0.6 mmol/L; ABG HCO3 25 mmol/L (21-25); ABG PCO2 40 mmHg (35-45); ABG PH 7.41 (7.35-7.45); ABG PO2 396 mmHg (83-108); ABG TCO2 26 mmol/L (19-24)
[2017-01-04 12:06] LABS: ABG Base Excess -0.4 mmol/L; ABG HCO3 25 mmol/L (21-25); ABG PCO2 48 mmHg (35-45); ABG PH 7.34 (7.35-7.45); ABG PO2 227 mmHg (83-108); ABG TCO2 27 mmol/L (19-24)
[2017-01-04 12:07] LABS: ABG HCO3 25 mmol/L (21-25); ABG PCO2 47 mmHg (35-45); ABG PH 7.35 (7.35-7.45); ABG PO2 279 mmHg (83-108); ABG TCO2 27 mmol/L (19-24)
[2017-01-04 12:07] LABS: ABG Oxygen Saturation 99.8 % (94-97)
[2017-01-04 12:08] LABS: ABG Base Excess 0.1 mmol/L; ABG Oxygen Saturation 99.9 % (94-97)
[2017-01-04 12:08] LABS: ABG HCO3 26 mmol/L (21-25); ABG PCO2 55 mmHg (35-45); ABG PH 7.29 (7.35-7.45); ABG PO2 281 mmHg (83-108)
[2017-01-04 12:09] LABS: ABG Base Excess -0.4 mmol/L; ABG Oxygen Saturation 99.8 % (94-97); ABG TCO2 28 mmol/L (19-24)
[2017-01-04 12:09] LABS: ABG PCO2 44 mmHg (35-45); ABG PH 7.37 (7.35-7.45); ABG PO2 395 mmHg (83-108)
[2017-01-04 12:10] LABS: ABG HCO3 25 mmol/L (21-25); ABG PCO2 46 mmHg (35-45); ABG PH 7.35 (7.35-7.45); ABG PO2 350 mmHg (83-108); ABG TCO2 26 mmol/L (19-24)
[2017-01-04 12:10] LABS: ABG HCO3 25 mmol/L (21-25); ABG TCO2 26 mmol/L (19-24)
[2017-01-04 12:11] LABS: ABG Base Excess -0.8 mmol/L; ABG HCO3 24 mmol/L (21-25); ABG PCO2 41 mmHg (35-45); ABG PH 7.38 (7.35-7.45); ABG PO2 127 mmHg (83-108); ABG TCO2 25 mmol/L (19-24)
[2017-01-04 12:11] LABS: ABG Base Excess -0.6 mmol/L; ABG Oxygen Saturation 99.9 % (94-97)
[2017-01-04 12:12] LABS: ABG Oxygen Saturation 98.8 % (94-97)
--- NOTE | 2017-01-04 12:34 | P.PN ---
Progress Note - Text CV Surgery Nursing Principal diagnosis: Coronary artery disease POD #2, status post urgent coronary artery bypass grafting 4 vessels with placement of his left internal mammary artery to his obtuse marginal 1 coronary artery, right internal mammary artery to his left anterior descending coronary artery, reverse greater saphenous vein graft placed to his obtuse marginal coronary artery #3, and a reverse greater saphenous vein graft placed to his diagonal coronary artery. Endoscopic vein harvest of his right greater saphenous vein. Intraoperative transesophageal echocardiogram and epi-aortic ultrasound. Patient remains intubated with mechanical ventilator support, currently sedated on Diprivan drip. He is shaking his head appropriately to yes and no questions. Moving all 4 extremities appropriately. Diprivan drip will be held for a sedation holiday in attempts to wean from mechanical ventilator support. Vital Signs: current temperature 100.5F. Vital Signs - 24 hr 01/03/17 01/03/17 01/03/17 12:30 13:00 13:30 Pulse Rate 73 72 74 Respiratory 12 12 14 Rate O2 Sat by Pulse 93 L 94 L 92 L Oximetry 01/03/17 01/03/17 01/03/17 14:00 14:30 15:00 Pulse Rate 72 67 68 Respiratory 13 14 15 Rate O2 Sat by Pulse 93 L 94 L 95 Oximetry 01/03/17 01/03/17 01/03/17 15:30 16:00 16:30 Pulse Rate 66 68 72 Respiratory 12 13 18 Rate O2 Sat by Pulse 96 96 97 Oximetry 01/03/17 01/03/17 01/03/17 16:40 16:52 17:00 Pulse Rate 71 76 74 Respiratory 11 L Rate O2 Sat by Pulse 98 Oximetry 01/03/17 01/03/17 01/03/17 17:15 17:30 17:45 Pulse Rate 76 74 73 Respiratory 12 14 13 Rate O2 Sat by Pulse 97 98 98 Oximetry 01/03/17 01/03/17 01/03/17 18:00 18:15 18:30 Pulse Rate 75 76 80 Respiratory 14 13 25 H Rate O2 Sat by Pulse 98 98 92 L Oximetry 01/03/17 01/03/17 01/03/17 18:45 19:00 19:40 Pulse Rate 71 71 72 Respiratory 15 15 Rate O2 Sat by Pulse 95 96 Oximetry 01/03/17 01/03/17 01/03/17 19:54 20:00 21:00 Pulse Rate 74 75 80 Respiratory 14 13 Rate O2 Sat by Pulse 94 L 99 Oximetry 01/03/17 01/03/17 01/03/17 22:00 23:00 23:29 Pulse Rate 67 66 108 H Respiratory 13 16 Rate O2 Sat by Pulse 99 98 Oximetry 01/03/17 01/04/17 01/04/17 23:40 00:00 01:00 Pulse Rate 124 H 66 69 Respiratory 12 13 Rate O2 Sat by Pulse 100 98 Oximetry 01/04/17 01/04/17 01/04/17 02:00 03:00 03:05 Pulse Rate 67 68 68 Respiratory 15 15 Rate O2 Sat by Pulse 100 100 Oximetry 01/04/17 01/04/17 01/04/17 03:15 04:00 05:00 Pulse Rate 69 72 69 Respiratory 15 13 Rate O2 Sat by Pulse 97 97 Oximetry 01/04/17 01/04/17 01/04/17 06:00 07:00 07:30 Pulse Rate 70 68 69 Respiratory 46 H 11 L Rate O2 Sat by Pulse 96 97 Oximetry 01/04/17 01/04/17 01/04/17 07:53 08:00 09:00 Pulse Rate 73 73 69 Respiratory 16 17 Rate O2 Sat by Pulse 97 96 Oximetry 01/04/17 01/04/17 01/04/17 10:00 11:00 11:44 Pulse Rate 65 74 74 Respiratory 15 12 Rate O2 Sat by Pulse 99 96 Oximetry 01/04/17 11:57 Pulse Rate 76 Respiratory Rate O2 Sat by Pulse Oximetry ABP, PAP, CO, CI - Last 8 Hours Arterial Blood Pressure 134/49 Arterial Blood Pressure 129/51 Arterial Blood Pressure 111/51 Arterial Blood Pressure 128/50 Arterial Blood Pressure 110/46 Arterial Blood Pressure 118/38 Arterial Blood Pressure 141/57 Pulmonary Artery Pressure 28/14 Pulmonary Artery Pressure 27/14 Pulmonary Artery Pressure 30/18 Pulmonary Artery Pressure 30/16 Pulmonary Artery Pressure 28/13 Pulmonary Artery Pressure 28/16 Pulmonary Artery Pressure 27/16 Cardiac Output 9.1 Cardiac Output 9.1 Cardiac Output 9.1 Cardiac Output 5.7 Cardiac Output 5.7 Cardiac Output 5.7 Cardiac Output 5.7 Cardiac Index 4.6 Labs: Short CBC 01/04/17 Range/Units 05:10 WBC 8.3 (3.8-10.6) k/uL Hgb 10.7 L (13.0-17.5) gm/dL Hct 29.6 L (39.0-53.0) % Plt Count 112 L (150-450) k/uL Neutrophils # 6.6 (1.3-7.7) k/uL BMP 01/03/17 01/04/17 01/04/17 17:30 01:05 05:10 Sodium 134 L 133 L Potassium 3.9 3.9 4.3 Chloride 104 105 Carbon Dioxide 25 25 BUN 12 12 Creatinine 0.71 0.70 Glucose 103 H 124 H Calcium 8.0 L 8.1 L Liver Function 01/04/17 Range/Units 05:10 Total Bilirubin 0.6 (0.2-1.3) mg/dL AST 71 H (17-59) U/L ALT 36 (21-72) U/L Alkaline Phosphatase 43 (38-126) U/L Albumin 2.8 L (3.5-5.0) g/dL ABG ABG pH 7.49 (7.35-7.45) H 01/04/17 10:48 ABG pCO2 30 mmHg (35-45) L 01/04/17 10:48 ABG pO2 73 mmHg (83-108) L 01/04/17 10:48 ABG O2 Saturation 95.9 % (94-97) 01/04/17 10:48 PT/INR, D-dimer PT 11.9 sec (9.0-12.0) 01/04/17 05:10 INR 1.2 (<1.1) 01/04/17 05:10 Microbiology 12/30/16 14:13 Nasal Swab Nasal Screen MRSA/MSSA ([facility]) - Final 12/30/16 14:30 Urine,Voided Urine Culture - Final IV Fluids: Lactated Ringer's at 50 mL per hour Amiodarone drip at 0.5 mg per hour Cleviprex drip at 15 mg per hour Nitroglycerin drip at 5 mics per minute Insulin drip at 2 units per hour. Cardiac output: 9.1 Cardiac index: 4.6 Pulmonary artery pressures: 30/13 CVP: 10 Lungs: Essentially clear throughout, diminished bilateral bases, respirations are unlabored and symmetrical with mechanical ventilator support. Current ventilator settings are as follows: AC 12 pressure control ventilation 20/1.10, FiO2 55%, PEEP 5 O2 sat: 99% with mechanical ventilator support current FiO2 setting 55%. Heart: S1S2, regular rhythm and rate, negative for S3, gallop or murmur. Bedside telemetry showing junctional rhythm heart rate 72. Occasional sinus beat. Sternum stable, chest incision clean with dressing clean and dry. Heart hugger in place. Right leg incisions clean dry and well approximated, no drainage noted. Knee-high SHIRA hose and sequential compression devices in place to bilateral lower extremities. Abdomen: Soft, Positive bowel sounds present in all 4 quadrants. OG tube in place to 200 mL of coffee-ground drainage in the last 24 hours. CBGs: 119-136 mg/dL in the last 24 hours. U/O: Marginal, Zavala catheter for accurate I&O. 260 mL output in the last 8 hour. Chest Tubes: Right and left pleural chest tubes without air leak, remains to continuous low wall suction. 40 mL output in the last 8 hours, 250 mL output in the last 24 hours. Mediastinal chest tubes without air leak, remains to continuous low wall suction. 30 mL output in the last 8 hours, 300 mL output in the last 24 hours. Thin serosanguineous drainage out of all 3 chest tubes. 24 hr Total: Intake & Output 01/02/17 01/03/17 01/04/17 01/05/17 06:59 06:59 06:59 06:59 Intake Total 488 7572.282 9801.969 551.118 Output Total 3921 1710 497 Balance 488 -1975.990 956.969 54.118 Weight 82.6 kg 89.9 kg 89.7 kg Active Medications Hydrocodone Bitart/Acetaminophen ([place] 5-325) 2 each PO Q4HR PRN PRN Reason: Severe Pain Hydrocodone Bitart/Acetaminophen ([place] 5-325) 1 each PO Q4HR PRN PRN Reason: Moderate Pain Albuterol/Ipratropium (Duoneb 0.5 Mg-3 Mg/3 Ml Soln) 3 ml INHALATION RT-Q4H [facility] Last Admin: 01/04/17 11:44 Dose: 3 ml Albuterol/Ipratropium (Duoneb 0.5 Mg-3 Mg/3 Ml Soln) 3 ml INHALATION RT-Q2H PRN PRN Reason: Shortness Of Breath Or Wheezing Aspirin (Aspirin) 325 mg PO DAILY [facility] Last Admin: 01/04/17 07:49 Dose: 325 mg Atorvastatin Calcium (Lipitor) 40 mg PO HS [facility] Last Admin: 01/03/17 22:09 Dose: 40 mg Benzocaine/Menthol (Cepacol Lozenge) 1 each MUCOUS MEM Q2H PRN PRN Reason: Sore Throat Bisacodyl (Dulcolax) 10 mg RECTAL DAILY PRN PRN Reason: Constipation Chlorhexidine Gluconate (Peridex) 15 ml MUCOUS MEM BID [facility] Last Admin: 01/04/17 07:49 Dose: 15 ml Clopidogrel Bisulfate (Plavix) 75 mg PO DAILY [facility] Last Admin: 01/04/17 07:49 Dose: 75 mg Heparin Sodium (Porcine) (Heparin) 5,000 unit SQ Q8HR [facility] Last Admin: 01/04/17 07:49 Dose: 5,000 unit Albumin Human 250 ml/ IV (Solution) 250 mls @ 250 mls/hr IVPB Q1HR PRN PRN Reason: For Volume Stop: 01/04/17 16:57 Last Admin: 01/02/17 17:15 Dose: 250 mls/hr Clevidipine 25 mg/ IV Solution 50 mls @ 2 mls/hr IV .Q24H [facility]; 1 MG/HR PRN Reason: Protocol Last Admin: 01/04/17 09:23 Dose: 15 mg/hr, 30 mls/hr Insulin Human Regular 100 unit (/ Sodium Chloride) 101 mls @ 0 mls/hr IV .Q0M [facility]; Per Protocol PRN Reason: Protocol Last Admin: 01/04/17 05:10 Dose: 2 units/hr, 2.02 mls/hr Lactated Ringer's (Lactated Ringers) 1,000 mls @ 50 mls/hr IV .Q20H [facility] Last Admin: 01/04/17 09:32 Dose: 50 mls/hr Propofol 500 mg/ IV Solution 50 mls @ 0 mls/hr IV .Q0M [facility]; Titrate PRN Reason: Protocol Last Admin: 01/04/17 08:05 Dose: 40 mcg/kg/min, 19.82 mls/hr Amiodarone HCl 450 mg/ (Dextrose/Water) 259 mls @ 34.53 mls/hr IV .Q7H31M [facility]; 1 MG/MIN PRN Reason: Protocol Stop: 01/04/17 18:09 Last Admin: 01/04/17 10:37 Dose: 1 mg/min, 34.53 mls/hr Magnesium Hydroxide (Milk Of Magnesia) 2,400 mg PO BID PRN PRN Reason: Constipation Metoclopramide HCl (Reglan) 10 mg IVP Q4H PRN PRN Reason: Nausea And Vomiting Metoprolol Tartrate (Lopressor) 12.5 mg PO BID [facility] Last Admin: 01/04/17 07:49 Dose: 12.5 mg Miscellaneous Information (Magnesium Per Protocol) 1 each MISCELLANE DAILY PRN ; Protocol PRN Reason: Per Protocol Miscellaneous Information (Phosphorus Per Protocol) 1 each MISCELLANE DAILY PRN ; Protocol PRN Reason: Per Protocol Miscellaneous Information (Potassium Per Protocol) 1 each MISCELLANE DAILY PRN ; Protocol PRN Reason: Per Protocol Morphine Sulfate (Morphine Sulfate (Inj)) 2 mg IVP Q2H PRN PRN Reason: Severe Pain Last Admin: 01/04/17 08:39 Dose: 2 mg Mupirocin (Bactroban Oint) 1 applic NASAL BID [facility] Stop: 01/05/17 21:01 Last Admin: 01/04/17 07:50 Dose: 1 applic Ondansetron HCl (Zofran) 4 mg IVP Q6HR PRN PRN Reason: Nausea And Vomiting Pantoprazole Sodium (Protonix) 40 mg IVP DAILY [facility] Last Admin: 01/04/17 07:48 Dose: 40 mg Senna/Docusate Sodium (Senokot-S) 2 each PO HS [facility] Last Admin: 01/03/17 22:12 Dose: 2 each Plan: 1. Continue aspirin, statin, beta deisy. 2. Pulmonary and ventilator management per Dr. Hoff recommendations. Attempts will be made today for extubation. 3. GI and DVT prophylaxis in place. 4. Blood sugar management per Dr. Carver's recommendations. 5. CBC, CMP and portable chest x-ray in a.m. 6. Continue chest tube is to low continuous wall suction. 7. Zavala catheter for accurate I&O. 8. Lasix 20 mg IV 1 now. 9. Further recommendations as patient progresses.
[2017-01-04 12:36] LABS: Glucose,Whole Blood 128 mg/dL (75-99)
--- NOTE | 2017-01-04 13:14 | P.PN ---
Subjective 56-year-old male patient with severe triple-vessel coronary artery disease status post non-ST segment elevation myocardial infarction. The patient was taken to the operating room and he underwent four-vessel bypass surgery. I'm seeing this patient immediately after he arrived to the intensive care unit. The patient was sedated with Diprivan and he was, comfortable. He was on a mechanical ventilator and I put him on assist control mode at the rate of 12, tidal volume of 600, FiO2 was dropped down to 50% and he was PEEP of 5. He is loud gases on 100% FiO2 showed a pH of 7.42 with a pCO2 of 36 and pO2 of 236. His chest x-ray post surgery showed satisfactory position of the tubes. There was some mild to moderate central vascular congestion and patchy new left lateral basilar atelectatic change/infiltrates. The patient hemodynamically is stable. Initially his cardiac output was at 4 with an index of 2.0 with a PA pressures of 26/12. He was given 1 amp of the 50 mL of albumin which brought up his index up to 2.9. Is producing adequate amount of urine output. The output from the chest tube is none active at this point. No other significant events otherwise. He is producing adequate amount of urine output. On 01/03/2017, the patient is being seen in follow-up. The patient was kept intubated and mechanically ventilated throughout the night. I have him on a pressure control mode of ventilation at the pressure of 8, PEEP of 5, FiO2 of 60 % and rate of 12. Note that after the patient arrived from the operating room, he was actually taking well and we had dropped his FiO2 down to 60%. He acutely desaturated and had to put them back up to 100% FiO2. Overnight, he was switched a pressure control which improved to synchrony with the mechanical ventilator. He is pulling good tidal volumes at this points more than 700. His morning blood gases showed a pH of 7.4 with a pCO2 of 38 and pO2 of 63 and it was not an FiO2 of 50%. His chest x-ray showing stable postoperative findings. The patient's chest tubes and ET tube are all in good location. Scattered opacities are seen bilaterally and there is some mild cardiomegaly with mild to moderate central vascular congestion. The NG tube is in place and is putting out some minimal amount of coffee-ground material. Hemodynamically, the patient is stable. The patient is on a combination of Cardizem drip at 10 mg an hour and Cleviprex at 8 mg an hour. His most recent cardiac index is at 2.9. PA pressures are 30/18. Chest tubes are all in place and output is less than 50 mL an hour from the mediastinal and the pleural chest tubes. Hemoglobin is stable at this point. The patient remains sedated with Diprivan. The patient is calm and comfortable. On 01/04/2017 the patient is being seen in follow-up. The patient is postop day #2. Note that the patient. Weaning trials as the patient was having oxygen desaturations. This morning he still on a pressure control mode of ventilation and no changes have been on a mechanical ventilator. The patient was a 50% FiO2 and the saturation was around 97%. Note that the morning vent settings included a pressure control of 18, PEEP of 5, FiO2 of 50% and a rate of 12. Chest x-ray shows some increased interstitial markings bilaterally at the decubitus of the chest tubes are all in good location. The morning blood gases showed a pH of 7.4 with a pCO2 of 38 and pO2 of 63. It was not an FiO2 of 50%. The oxidation was not a good reflection of the patient's status knowing that the patient perplexing 97% following this blood gas. He was dynamically the patient was stable. The patient had 2 runs of V. tach late in the afternoon and for that reason the patient was loaded with amiodarone by cardiothoracic surgery. Despite this cardiac arrhythmia, the patient remained hemodynamically stable and the patient was producing adequate amount of urine output. He is off the nitroglycerin drip. He still on Cleviprex for blood pressure control. Sedated with Diprivan. Cardiac index was around 2.9. Based on all this, I thought was reasonable to give the patient is a sedation holiday and assess the patient's weaning parameters. This was done and the patient do not to have good weaning parameters with a rapid shallow breathing index of around 75. Following that, the patient was given a spelled his breathing trial with a pressure support of 5 and a PEEP of 5 and after 30 minutes blood gases showed a pH of 7.49 with a pCO2 of 30 and pO2 of 73. The patient was wide awake and alert and following commands and answering questions appropriately. No cardiac arrhythmias was noted. No tachypnea. No tachycardia. At that point decision was to extubate this patient 5 L/m nasal cannula. He did very well with this extubation and the saturation remained around 94-95%. Objective - Vital Signs Vital signs: Vital Signs Temp 98.3 F 01/02/17 06:08 Pulse 76 01/04/17 11:57 Resp 12 01/04/17 11:00 BP 123/75 01/02/17 06:08 Pulse Ox 96 01/04/17 11:00 Intake & Output 01/03/17 01/04/17 01/04/17 18:59 06:59 18:59 Intake Total 5508.568 2043.507 601.118 Output Total 888 822 497 Balance 238.462 718.507 104.118 Weight 89.7 kg Intake: IV 168 158 65 CO/CI 60 50 20 Pressure Bag 108 108 45 Intake, IV Titration 049.783 4372.507 536.118 Amount ACETAMINOPHEN IV (For NPO 100 100 ) 1,000 mg In Empty Bag 1 bag @ 400 mls/hr IVPB Q6HR [facility] Rx#:[id number] Amiodarone 450 mg In 201.425 129.738 Dextrose 5% in Water 250 ml @ 1 MG/MIN 34.53 mls/ hr IV .Q7H31M [facility] Rx#: [id number] Clevidipine Butyrate 25 86.667 100 106.5 mg In Empty Bag 1 bag @ 1 MG/HR 2 mls/hr IV .Q24H [facility] Rx#:[id number] Diltiazem 125 mg In 125 Sodium Chloride 0.9% 100 ml @ 5 MG/HR 5 mls/hr IV .Q24H [facility] Rx#:[id number] Insulin Regular 100 unit 53.204 In Sodium Chloride 0.9% 100 ml @ Per Protocol IV .Q0M [facility] Rx#:[id number] Lactated Ringers 1,000 ml 50 @ 10 mls/hr IV .Q24H [facility]N Rx#:[id number] Lactated Ringers 1,000 ml 550 600 250 @ 50 mls/hr IV .Q20H [facility] Rx#:[id number] Nitroglycerin-D5w Pmx 50 0 mg In Dextrose/Water 1 250ml.bag @ 10 MCG/MIN 3 mls/hr IV .Q24H [facility] Rx#: [id number] Propofol 500 mg In Empty 71.795 142.878 49.88 Bag 1 bag @ Titrate IV . Q0M [facility] Rx#:[id number] ceFAZolin 2,000 mg In 100 Sodium Chloride 0.9% 30 ml @ 999 mls/hr IVPB ONCE PRN Rx#:[id number] Other 60 Output: Chest Tube Drainage 270 250 50 Mediastinal 145 120 30 Right & Left Pleural 125 130 20 Urine 618 572 447 Other: Voiding Method Indwelling Catheter Indwelling Catheter Indwelling Catheter ABP, PAP, CO, CI - Last Documented Arterial Blood Pressure 134/49 Pulmonary Artery Pressure 28/14 Cardiac Output 9.1 Cardiac Index 4.6 - Exam Awake and alert. Following simple commands. He is still recovering from his underlying sedation yet easily arousable.Head exam was generally normal. There was no scleral icterus or corneal arcus. Mucous membranes were moist. The patient has a right IJ Cordis and Summerfield-Estrellita catheter in place. No JVDs. Mucus from veins are dry. No goiter or neck masses. Lungs sounds are diminished bilaterally especially in lung bases. No wheezes or rhonchi. Sternum stable clean and intact. The patient has right pleural, left pleural, and mediastinal chest tubes. All of the chest tubes are in good location. Sternum stable clean and intact.Cardiac exam revealed the PMI to be normally situated and sized. The rhythm was regular and no extrasystoles were noted during several minutes of auscultation. The first and second heart sounds were normal and physiologic splitting of the second heart sound was noted. There were no murmurs , rubs, clicks, or gallops.Abdominal exam revealed normal bowel sounds. The abdomen was soft, non-tender, and without masses, organomegaly, or appreciable enlargement of the abdominal aorta.Examination of the extremities revealed easily palpable radial, femoral and pedal pulses. There was no cyanosis, clubbing or edema. All of the surgical wounds are dry clean and intact. - Labs CBC & Chem 7: 01/04/17 05:10 01/04/17 05:10 Labs: Abnormal Lab Results - Last 24 Hours (Table) 01/02/17 01/02/17 01/02/17 Range/Units 08:45 10:59 12:11 RBC (4.30-5.90) m/uL Hgb (13.0-17.5) gm/dL Hct (39.0-53.0) % Plt Count (150-450) k/uL ABG pH (7.35-7.45) ABG pCO2 (35-45) mmHg ABG pO2 244 H 167 H 396 H (83-108) mmHg ABG HCO3 (21-25) mmol/L ABG Total CO2 25 H 26 H (19-24) mmol/L ABG O2 Saturation 99.9 H 99.5 H 100.0 H (94-97) % ABG Hematocrit 33 L 26 L (34.0-46.0) % Sodium (137-145) mmol/L Glucose (74-99) mg/dL POC Glucose (mg/dL) (75-99) mg/dL Calcium (8.4-10.2) mg/dL AST (17-59) U/L Total Protein (6.3-8.2) g/dL Albumin (3.5-5.0) g/dL 01/02/17 01/02/17 01/02/17 Range/Units 12:41 13:12 14:07 RBC (4.30-5.90) m/uL Hgb (13.0-17.5) gm/dL Hct (39.0-53.0) % Plt Count (150-450) k/uL ABG pH 7.34 L 7.29 L (7.35-7.45) ABG pCO2 48 H 47 H 55 H (35-45) mmHg ABG pO2 227 H 279 H 281 H (83-108) mmHg ABG HCO3 26 H (21-25) mmol/L ABG Total CO2 27 H 27 H 28 H (19-24) mmol/L ABG O2 Saturation 99.8 H 99.9 H 99.8 H (94-97) % ABG Hematocrit 28 L 27 L 26 L (34.0-46.0) % Sodium (137-145) mmol/L Glucose (74-99) mg/dL POC Glucose (mg/dL) (75-99) mg/dL Calcium (8.4-10.2) mg/dL AST (17-59) U/L Total Protein (6.3-8.2) g/dL Albumin (3.5-5.0) g/dL 01/02/17 01/02/17 01/02/17 Range/Units 14:14 14:39 15:49 RBC (4.30-5.90) m/uL Hgb (13.0-17.5) gm/dL Hct (39.0-53.0) % Plt Count (150-450) k/uL ABG pH (7.35-7.45) ABG pCO2 46 H (35-45) mmHg ABG pO2 395 H 350 H 127 H (83-108) mmHg ABG HCO3 (21-25) mmol/L ABG Total CO2 26 H 26 H 25 H (19-24) mmol/L ABG O2 Saturation 100.0 H 99.9 H 98.8 H (94-97) % ABG Hematocrit 26 L 28 L 29 L (34.0-46.0) % Sodium (137-145) mmol/L Glucose (74-99) mg/dL POC Glucose (mg/dL) (75-99) mg/dL Calcium (8.4-10.2) mg/dL AST (17-59) U/L Total Protein (6.3-8.2) g/dL Albumin (3.5-5.0) g/dL 01/03/17 01/03/17 01/03/17 Range/Units 14:07 16:07 17:08 RBC (4.30-5.90) m/uL Hgb (13.0-17.5) gm/dL Hct (39.0-53.0) % Plt Count (150-450) k/uL ABG pH (7.35-7.45) ABG pCO2 (35-45) mmHg ABG pO2 (83-108) mmHg ABG HCO3 (21-25) mmol/L ABG Total CO2 (19-24) mmol/L ABG O2 Saturation (94-97) % ABG Hematocrit (34.0-46.0) % Sodium (137-145) mmol/L Glucose (74-99) mg/dL POC Glucose (mg/dL) 106 H 102 H 106 H (75-99) mg/dL Calcium (8.4-10.2) mg/dL AST (17-59) U/L Total Protein (6.3-8.2) g/dL Albumin (3.5-5.0) g/dL 04/25/17 04/25/17 04/25/17 Range/Units 17:30 18:05 19:01 RBC (4.30-5.90) m/uL Hgb (13.0-17.5) gm/dL Hct (39.0-53.0) % Plt Count (150-450) k/uL ABG pH (7.35-7.45) ABG pCO2 (35-45) mmHg ABG pO2 (83-108) mmHg ABG HCO3 (21-25) mmol/L ABG Total CO2 (19-24) mmol/L ABG O2 Saturation (94-97) % ABG Hematocrit (34.0-46.0) % Sodium 134 L (137-145) mmol/L Glucose 103 H (74-99) mg/dL POC Glucose (mg/dL) 108 H 119 H (75-99) mg/dL Calcium 8.0 L (8.4-10.2) mg/dL AST (17-59) U/L Total Protein (6.3-8.2) g/dL Albumin (3.5-5.0) g/dL 01/03/17 01/03/17 01/03/17 Range/Units 19:50 22:05 23:17 RBC (4.30-5.90) m/uL Hgb (13.0-17.5) gm/dL Hct (39.0-53.0) % Plt Count (150-450) k/uL ABG pH (7.35-7.45) ABG pCO2 (35-45) mmHg ABG pO2 (83-108) mmHg ABG HCO3 (21-25) mmol/L ABG Total CO2 (19-24) mmol/L ABG O2 Saturation (94-97) % ABG Hematocrit (34.0-46.0) % Sodium (137-145) mmol/L Glucose (74-99) mg/dL POC Glucose (mg/dL) 149 H 123 H 109 H (75-99) mg/dL Calcium (8.4-10.2) mg/dL AST (17-59) U/L Total Protein (6.3-8.2) g/dL Albumin (3.5-5.0) g/dL 01/04/17 01/04/17 01/04/17 Range/Units 00:18 01:08 02:04 RBC (4.30-5.90) m/uL Hgb (13.0-17.5) gm/dL Hct (39.0-53.0) % Plt Count (150-450) k/uL ABG pH (7.35-7.45) ABG pCO2 (35-45) mmHg ABG pO2 (83-108) mmHg ABG HCO3 (21-25) mmol/L ABG Total CO2 (19-24) mmol/L ABG O2 Saturation (94-97) % ABG Hematocrit (34.0-46.0) % Sodium (137-145) mmol/L Glucose (74-99) mg/dL POC Glucose (mg/dL) 115 H 119 H 119 H (75-99) mg/dL Calcium (8.4-10.2) mg/dL AST (17-59) U/L Total Protein (6.3-8.2) g/dL Albumin (3.5-5.0) g/dL 01/04/17 01/04/17 01/04/17 Range/Units 04:06 04:52 05:06 RBC (4.30-5.90) m/uL Hgb (13.0-17.5) gm/dL Hct (39.0-53.0) % Plt Count (150-450) k/uL ABG pH (7.35-7.45) ABG pCO2 (35-45) mmHg ABG pO2 61 L (83-108) mmHg ABG HCO3 (21-25) mmol/L ABG Total CO2 25 H (19-24) mmol/L ABG O2 Saturation 92.0 L (94-97) % ABG Hematocrit (34.0-46.0) % Sodium (137-145) mmol/L Glucose (74-99) mg/dL POC Glucose (mg/dL) 122 H 136 H (75-99) mg/dL Calcium (8.4-10.2) mg/dL AST (17-59) U/L Total Protein (6.3-8.2) g/dL Albumin (3.5-5.0) g/dL 01/04/17 01/04/17 01/04/17 Range/Units 05:10 05:10 07:11 RBC 3.24 L (4.30-5.90) m/uL Hgb 10.7 L (13.0-17.5) gm/dL Hct 29.6 L (39.0-53.0) % Plt Count 112 L (150-450) k/uL ABG pH (7.35-7.45) ABG pCO2 (35-45) mmHg ABG pO2 (83-108) mmHg ABG HCO3 (21-25) mmol/L ABG Total CO2 (19-24) mmol/L ABG O2 Saturation (94-97) % ABG Hematocrit (34.0-46.0) % Sodium 133 L (137-145) mmol/L Glucose 124 H (74-99) mg/dL POC Glucose (mg/dL) 135 H (75-99) mg/dL Calcium 8.1 L (8.4-10.2) mg/dL AST 71 H (17-59) U/L Total Protein 4.7 L (6.3-8.2) g/dL Albumin 2.8 L (3.5-5.0) g/dL 01/04/17 01/04/17 01/04/17 Range/Units 07:55 08:55 09:56 RBC (4.30-5.90) m/uL Hgb (13.0-17.5) gm/dL Hct (39.0-53.0) % Plt Count (150-450) k/uL ABG pH (7.35-7.45) ABG pCO2 (35-45) mmHg ABG pO2 (83-108) mmHg ABG HCO3 (21-25) mmol/L ABG Total CO2 (19-24) mmol/L ABG O2 Saturation (94-97) % ABG Hematocrit (34.0-46.0) % Sodium (137-145) mmol/L Glucose (74-99) mg/dL POC Glucose (mg/dL) 120 H 123 H 124 H (75-99) mg/dL Calcium (8.4-10.2) mg/dL AST (17-59) U/L Total Protein (6.3-8.2) g/dL Albumin (3.5-5.0) g/dL 01/04/17 01/04/17 01/04/17 Range/Units 10:48 11:22 12:35 RBC (4.30-5.90) m/uL Hgb (13.0-17.5) gm/dL Hct (39.0-53.0) % Plt Count (150-450) k/uL ABG pH 7.49 H (7.35-7.45) ABG pCO2 30 L (35-45) mmHg ABG pO2 73 L (83-108) mmHg ABG HCO3 (21-25) mmol/L ABG Total CO2 (19-24) mmol/L ABG O2 Saturation (94-97) % ABG Hematocrit (34.0-46.0) % Sodium (137-145) mmol/L Glucose (74-99) mg/dL POC Glucose (mg/dL) 124 H 128 H (75-99) mg/dL Calcium (8.4-10.2) mg/dL AST (17-59) U/L Total Protein (6.3-8.2) g/dL Albumin (3.5-5.0) g/dL Assessment and Plan Plan: Assessment 1 multivessel coronary artery disease status post non-ST segment elevation myocardial infarctions, status post four-vessel bypass surgery patient is postop day #2 2 post operative hypoxemia probably secondary to microatelectasis. There is some increased interstitial markings bilaterally. Hemodynamically the patient is stable. The patient is on a pressure control mode of ventilation with an FiO2 of 60% and a 5 of PEEP. Patient's pulse ox is in the 92-90% range and pO2 was 63 on 60% FiO2. On 01/04/2017 the patient was weaned off the mechanical ventilated and the patient was extubated without any major difficulties. The postoperative hypoxemia that was noted was probably related to a mild component of acute lung injury alternatively microatelectasis and some increased interstitial markings probably due to fluid overload could've contributed to his hypoxemia. All these have improved and the patient is currently on 5 L of oxygen by nasal cannula saturation above 97%. Chest tubes are all in place. Hemodynamically stable. 3 post operative nonsustained V. tach, on amiodarone drip 4 postoperative anemia with hemoglobin of 10.7, stable 5 coffee-ground material through the OG, recovered and the OG tube has been removed 6 postoperative hypertension currently on a combination of Cleviprex , the rest of the hemodynamics are stable and the patient has a cardiac index of 2.9 is producing adequate amount of urine output. Plan Monitor the patient's respiratory status. Provide the patient incentive spirometer. Provide the patient adequate pain control. Keep the patient on 5 L of oxygen by nasal cannula. Wean off Cleviprex and discontinue. Continue the amiodarone loading.repeat chest x-ray in a.m. We'll continue to follow make further recommendations based on his progress. This is a critically care evaluation was done and 52 minutes. Time with Patient: Greater than 30
[2017-01-04 13:57] LABS: Glucose,Whole Blood 122 mg/dL (75-99)
--- NOTE | 2017-01-04 15:01 | P.ARTDOP ---
Arterial Doppler LOWER EXTREMITY ARTERIAL DOPPLER: DATE OF SERVICE: 12/30/2016 Reason for study: Pre-CABG. Doppler waveforms: Multiphasic bilaterally throughout. Pulse volume recording: []. Pressure gradients: None. Ankle-brachial indices: Greater than 1 on the right. 0.69 on the left.. Toe pressures: [] on the right, [] on the left Impression: Normal right side. Moderate left fem-pop disease. Clinical correlation recommended. No contraindication to CABG..
--- NOTE | 2017-01-04 15:02 | P.VSCSTY ---
Greater Saphenous Vein Mapping This is bilateral lower extremity greater saphenous vein mapping. Date of service 12/30/2016 Vein quality and ultrasound appearance normal. Vein size groin right 7.5 x 9.2 groin left 7.4 x 8.1 High thigh right 5.5 x 6.6 high thigh left 5.3 x 5.9 Mid thigh right 4.3 x 5.6 mid thigh left 4.9 x 6.2 Above-knee right 4.3 x 5.2 above- knee left 5.2 x 6.9 Below knee right 4.0 x 5.0 below-knee left 3.4 x 4.0 Mid calf right 2.3 x 3.1 mid calf left 2.6 x 3.7 Ankle right 2.5 x 3.0 ankle left 2.8 x 4.7 Impression usable greater saphenous veins bilaterally.
[2017-01-04 15:04] LABS: Glucose,Whole Blood 107 mg/dL (75-99)
[2017-01-04 16:08] LABS: Glucose,Whole Blood 111 mg/dL (75-99)
--- NOTE | 2017-01-04 16:46 | P.PN ---
Subjective This is a 56-year-old gentleman who is postop day 2 from a quadruple coronary bypass surgery. Patient is seen in the intensive care unit is status post extubation at this time. Patient continues to have chest tubes at this time. Patient's convocation's included postoperative sustained VT currently maintained on amiodarone drip. Patient is awake is answering questions appropriately no further abnormalities were reported. Objective - Vital Signs Vital signs: Vital Signs Temp 98.3 F 01/02/17 06:08 Pulse 80 01/04/17 14:00 Resp 25 H 01/04/17 14:00 BP 123/75 01/02/17 06:08 Pulse Ox 94 L 01/04/17 14:00 Intake & Output 01/03/17 01/04/17 01/04/17 18:59 06:59 18:59 Intake Total 5717.616 6007.507 839.118 Output Total 562 879 5197 Balance 238.462 718.507 -557.882 Weight 89.7 kg Intake: IV 168 158 103 CO/CI 60 50 40 Pressure Bag 108 108 63 Intake, IV Titration 153.456 6410.507 736.118 Amount ACETAMINOPHEN IV (For NPO 100 100 ) 1,000 mg In Empty Bag 1 bag @ 400 mls/hr IVPB Q6HR [facility] Rx#:[id number] Amiodarone 450 mg In 201.425 129.738 Dextrose 5% in Water 250 ml @ 1 MG/MIN 34.53 mls/ hr IV .Q7H31M [facility] Rx#: [id number] Clevidipine Butyrate 25 86.667 100 156.5 mg In Empty Bag 1 bag @ 1 MG/HR 2 mls/hr IV .Q24H [facility] Rx#:[id number] Diltiazem 125 mg In 125 Sodium Chloride 0.9% 100 ml @ 5 MG/HR 5 mls/hr IV .Q24H [facility] Rx#:[id number] Insulin Regular 100 unit 53.204 In Sodium Chloride 0.9% 100 ml @ Per Protocol IV .Q0M [facility] Rx#:[id number] Lactated Ringers 1,000 ml 50 @ 10 mls/hr IV .Q24H [facility] Rx#:[id number] Lactated Ringers 1,000 ml 550 600 400 @ 50 mls/hr IV .Q20H [facility] Rx#:[id number] Nitroglycerin-D5w Pmx 50 0 mg In Dextrose/Water 1 250ml.bag @ 10 MCG/MIN 3 mls/hr IV .Q24H [facility] Rx#: [id number] Propofol 500 mg In Empty 71.795 142.878 49.88 Bag 1 bag @ Titrate IV . Q0M [facility] Rx#:[id number] ceFAZolin 2,000 mg In 100 Sodium Chloride 0.9% 30 ml @ 999 mls/hr IVPB ONCE [facility] Rx#:[id number] Other 60 Output: Chest Tube Drainage 270 250 110 Mediastinal 145 120 50 Right & Left Pleural 125 130 60 Urine [id number] Other: Voiding Method Indwelling Catheter Indwelling Catheter Indwelling Catheter ABP, PAP, CO, CI - Last Documented Arterial Blood Pressure 115/47 Pulmonary Artery Pressure 26/13 Cardiac Output 7.1 Cardiac Index 3.6 - Exam Gen. appearance awake alert is answering questions appropriately Lungs diminished breath sounds bilaterally no wheezes and rhonchi or crackles appreciated Chest tubes in place Epicardial pacemaker in place heart S1-S2 heard no murmurs appreciated Abdomen is soft nontender no organomegaly. FMS in place. Lower extremities no significant edema noted. Neuro no focal motor or sensory deficits noted. - Labs CBC & Chem 7: 01/04/17 05:10 01/04/17 05:10 Labs: Abnormal Lab Results - Last 24 Hours (Table) 01/02/17 01/02/17 01/02/17 Range/Units 08:45 10:59 12:11 RBC (4.30-5.90) m/uL Hgb (13.0-17.5) gm/dL Hct (39.0-53.0) % Plt Count (150-450) k/uL ABG pH (7.35-7.45) ABG pCO2 (35-45) mmHg ABG pO2 244 H 167 H 396 H (83-108) mmHg ABG HCO3 (21-25) mmol/L ABG Total CO2 25 H 26 H (19-24) mmol/L ABG O2 Saturation 99.9 H 99.5 H 100.0 H (94-97) % ABG Hematocrit 33 L 26 L (34.0-46.0) % Sodium (137-145) mmol/L Glucose (74-99) mg/dL POC Glucose (mg/dL) (75-99) mg/dL Calcium (8.4-10.2) mg/dL AST (17-59) U/L Total Protein (6.3-8.2) g/dL Albumin (3.5-5.0) g/dL 01/02/17 01/02/17 01/02/17 Range/Units 12:41 13:12 14:07 RBC (4.30-5.90) m/uL Hgb (13.0-17.5) gm/dL Hct (39.0-53.0) % Plt Count (150-450) k/uL ABG pH 7.34 L 7.29 L (7.35-7.45) ABG pCO2 48 H 47 H 55 H (35-45) mmHg ABG pO2 227 H 279 H 281 H (83-108) mmHg ABG HCO3 26 H (21-25) mmol/L ABG Total CO2 27 H 27 H 28 H (19-24) mmol/L ABG O2 Saturation 99.8 H 99.9 H 99.8 H (94-97) % ABG Hematocrit 28 L 27 L 26 L (34.0-46.0) % Sodium (137-145) mmol/L Glucose (74-99) mg/dL POC Glucose (mg/dL) (75-99) mg/dL Calcium (8.4-10.2) mg/dL AST (17-59) U/L Total Protein (6.3-8.2) g/dL Albumin (3.5-5.0) g/dL 01/02/17 01/02/17 01/02/17 Range/Units 14:14 14:39 15:49 RBC (4.30-5.90) m/uL Hgb (13.0-17.5) gm/dL Hct (39.0-53.0) % Plt Count (150-450) k/uL ABG pH (7.35-7.45) ABG pCO2 46 H (35-45) mmHg ABG pO2 395 H 350 H 127 H (83-108) mmHg ABG HCO3 (21-25) mmol/L ABG Total CO2 26 H 26 H 25 H (19-24) mmol/L ABG O2 Saturation 100.0 H 99.9 H 98.8 H (94-97) % ABG Hematocrit 26 L 28 L 29 L (34.0-46.0) % Sodium (137-145) mmol/L Glucose (74-99) mg/dL POC Glucose (mg/dL) (75-99) mg/dL Calcium (8.4-10.2) mg/dL AST (17-59) U/L Total Protein (6.3-8.2) g/dL Albumin (3.5-5.0) g/dL 01/03/17 01/03/17 01/03/17 Range/Units 17:08 17:30 18:05 RBC (4.30-5.90) m/uL Hgb (13.0-17.5) gm/dL Hct (39.0-53.0) % Plt Count (150-450) k/uL ABG pH (7.35-7.45) ABG pCO2 (35-45) mmHg ABG pO2 (83-108) mmHg ABG HCO3 (21-25) mmol/L ABG Total CO2 (19-24) mmol/L ABG O2 Saturation (94-97) % ABG Hematocrit (34.0-46.0) % Sodium 134 L (137-145) mmol/L Glucose 103 H (74-99) mg/dL POC Glucose (mg/dL) 106 H 108 H (75-99) mg/dL Calcium 8.0 L (8.4-10.2) mg/dL AST (17-59) U/L Total Protein (6.3-8.2) g/dL Albumin (3.5-5.0) g/dL 01/03/17 01/03/17 01/03/17 Range/Units 19:01 19:50 22:05 RBC (4.30-5.90) m/uL Hgb (13.0-17.5) gm/dL Hct (39.0-53.0) % Plt Count (150-450) k/uL ABG pH (7.35-7.45) ABG pCO2 (35-45) mmHg ABG pO2 (83-108) mmHg ABG HCO3 (21-25) mmol/L ABG Total CO2 (19-24) mmol/L ABG O2 Saturation (94-97) % ABG Hematocrit (34.0-46.0) % Sodium (137-145) mmol/L Glucose (74-99) mg/dL POC Glucose (mg/dL) 119 H 149 H 123 H (75-99) mg/dL Calcium (8.4-10.2) mg/dL AST (17-59) U/L Total Protein (6.3-8.2) g/dL Albumin (3.5-5.0) g/dL 01/03/17 01/04/17 01/04/17 Range/Units 23:17 00:18 01:08 RBC (4.30-5.90) m/uL Hgb (13.0-17.5) gm/dL Hct (39.0-53.0) % Plt Count (150-450) k/uL ABG pH (7.35-7.45) ABG pCO2 (35-45) mmHg ABG pO2 (83-108) mmHg ABG HCO3 (21-25) mmol/L ABG Total CO2 (19-24) mmol/L ABG O2 Saturation (94-97) % ABG Hematocrit (34.0-46.0) % Sodium (137-145) mmol/L Glucose (74-99) mg/dL POC Glucose (mg/dL) 109 H 115 H 119 H (75-99) mg/dL Calcium (8.4-10.2) mg/dL AST (17-59) U/L Total Protein (6.3-8.2) g/dL Albumin (3.5-5.0) g/dL 01/04/17 01/04/17 01/04/17 Range/Units 02:04 04:06 04:52 RBC (4.30-5.90) m/uL Hgb (13.0-17.5) gm/dL Hct (39.0-53.0) % Plt Count (150-450) k/uL ABG pH (7.35-7.45) ABG pCO2 (35-45) mmHg ABG pO2 61 L (83-108) mmHg ABG HCO3 (21-25) mmol/L ABG Total CO2 25 H (19-24) mmol/L ABG O2 Saturation 92.0 L (94-97) % ABG Hematocrit (34.0-46.0) % Sodium (137-145) mmol/L Glucose (74-99) mg/dL POC Glucose (mg/dL) 119 H 122 H (75-99) mg/dL Calcium (8.4-10.2) mg/dL AST (17-59) U/L Total Protein (6.3-8.2) g/dL Albumin (3.5-5.0) g/dL 01/04/17 01/04/17 01/04/17 Range/Units 05:06 05:10 05:10 RBC 3.24 L (4.30-5.90) m/uL Hgb 10.7 L (13.0-17.5) gm/dL Hct 29.6 L (39.0-53.0) % Plt Count 112 L (150-450) k/uL ABG pH (7.35-7.45) ABG pCO2 (35-45) mmHg ABG pO2 (83-108) mmHg ABG HCO3 (21-25) mmol/L ABG Total CO2 (19-24) mmol/L ABG O2 Saturation (94-97) % ABG Hematocrit (34.0-46.0) % Sodium 133 L (137-145) mmol/L Glucose 124 H (74-99) mg/dL POC Glucose (mg/dL) 136 H (75-99) mg/dL Calcium 8.1 L (8.4-10.2) mg/dL AST 71 H (17-59) U/L Total Protein 4.7 L (6.3-8.2) g/dL Albumin 2.8 L (3.5-5.0) g/dL 01/04/17 01/04/17 01/04/17 Range/Units 07:11 07:55 08:55 RBC (4.30-5.90) m/uL Hgb (13.0-17.5) gm/dL Hct (39.0-53.0) % Plt Count (150-450) k/uL ABG pH (7.35-7.45) ABG pCO2 (35-45) mmHg ABG pO2 (83-108) mmHg ABG HCO3 (21-25) mmol/L ABG Total CO2 (19-24) mmol/L ABG O2 Saturation (94-97) % ABG Hematocrit (34.0-46.0) % Sodium (137-145) mmol/L Glucose (74-99) mg/dL POC Glucose (mg/dL) 135 H 120 H 123 H (75-99) mg/dL Calcium (8.4-10.2) mg/dL AST (17-59) U/L Total Protein (6.3-8.2) g/dL Albumin (3.5-5.0) g/dL 01/04/17 01/04/17 01/04/17 Range/Units 09:56 10:48 11:22 RBC (4.30-5.90) m/uL Hgb (13.0-17.5) gm/dL Hct (39.0-53.0) % Plt Count (150-450) k/uL ABG pH 7.49 H (7.35-7.45) ABG pCO2 30 L (35-45) mmHg ABG pO2 73 L (83-108) mmHg ABG HCO3 (21-25) mmol/L ABG Total CO2 (19-24) mmol/L ABG O2 Saturation (94-97) % ABG Hematocrit (34.0-46.0) % Sodium (137-145) mmol/L Glucose (74-99) mg/dL POC Glucose (mg/dL) 124 H 124 H (75-99) mg/dL Calcium (8.4-10.2) mg/dL AST (17-59) U/L Total Protein (6.3-8.2) g/dL Albumin (3.5-5.0) g/dL 01/04/17 01/04/17 01/04/17 Range/Units 12:35 13:56 15:03 RBC (4.30-5.90) m/uL Hgb (13.0-17.5) gm/dL Hct (39.0-53.0) % Plt Count (150-450) k/uL ABG pH (7.35-7.45) ABG pCO2 (35-45) mmHg ABG pO2 (83-108) mmHg ABG HCO3 (21-25) mmol/L ABG Total CO2 (19-24) mmol/L ABG O2 Saturation (94-97) % ABG Hematocrit (34.0-46.0) % Sodium (137-145) mmol/L Glucose (74-99) mg/dL POC Glucose (mg/dL) 128 H 122 H 107 H (75-99) mg/dL Calcium (8.4-10.2) mg/dL AST (17-59) U/L Total Protein (6.3-8.2) g/dL Albumin (3.5-5.0) g/dL 01/04/17 Range/Units 16:06 RBC (4.30-5.90) m/uL Hgb (13.0-17.5) gm/dL Hct (39.0-53.0) % Plt Count (150-450) k/uL ABG pH (7.35-7.45) ABG pCO2 (35-45) mmHg ABG pO2 (83-108) mmHg ABG HCO3 (21-25) mmol/L ABG Total CO2 (19-24) mmol/L ABG O2 Saturation (94-97) % ABG Hematocrit (34.0-46.0) % Sodium (137-145) mmol/L Glucose (74-99) mg/dL POC Glucose (mg/dL) 111 H (75-99) mg/dL Calcium (8.4-10.2) mg/dL AST (17-59) U/L Total Protein (6.3-8.2) g/dL Albumin (3.5-5.0) g/dL Assessment and Plan Plan: #1 CAD status post CABG 4 postop day 2 #2 acute hypoxic respiratory failure as expected from the recent surgery #3 sustained VT currently on amiodarone drip no further episodes noted #4 postoperative anemia as expected from the recent surgery #5 diabetes mellitus currently maintained a 1.5 units of insulin per hour #6 history of hypertension Plan Patient is status post extubation encourage incentive spirometer Continue with insulin drip along the critical care unit. We'll liner roll changer to basal insulin with pre-meal insulin tomorrow the patient's is able to have an appropriate oral intake. Chest tube management per CTS.
[2017-01-04 17:16] LABS: Glucose,Whole Blood 105 mg/dL (75-99)
[2017-01-04 18:20] LABS: Glucose,Whole Blood 106 mg/dL (75-99)
[2017-01-04] MEDS: HYDROcodone/APAP 5-325MG 1 EACH TAB PO PRN (19:24)
[2017-01-04 19:27] LABS: Glucose,Whole Blood 105 mg/dL (75-99)
[2017-01-04 21:05] LABS: Glucose,Whole Blood 101 mg/dL (75-99)
[2017-01-04] MEDS: AMIODARONE 200 MG TAB PO SCH (21:09)
[2017-01-04] MEDS: ATORVASTATIN 40 MG TAB PO SCH (21:09)
--- NOTE | 2017-01-04 21:41 | P.PN ---
Subjective Principal diagnosis: Non-ST elevation SC, multivessel disease, status post CABG This 56-year-old gentleman was admitted with a prolonged chest pain and positive troponins. Cardiac catheterization revealed triple-vessel disease. Patient is seen and evaluated by cardiac surgeon. Patient is scheduled to have bypass surgery on Monday. Clinically patient is doing well. Denies any chest pain or shortness of breath or dizziness. Patient underwent aortocoronary bypass surgery with VELÁSQUEZ graft to the LAD, DEEPA graft to the OM branch and vein grafts to the diagonal and distal circumflex. Patient is stable hemodynamically. Patient has been having some accelerated junctional rhythm alternating with sinus rhythm. Patient is having some issues with oxygenation and his not still extubated. Hospital Intern working on it and probably will be with later today. His liver and kidney functions are normal. His mental status is intact Patient is reexamined on 04 of January, The patient is extubated. He seems to be tolerating it very well and doesn't appear to be in acute distress. His blood pressure has been running high which is being controlled with IV cleviprex . He is also on beta deisy and lipid-lowering agents. His hemoglobin is 10.7. Possible transfer to telemetry unit within next 24 hours Objective - Vital Signs Vital signs: Vital Signs Temp 98.3 F 01/02/17 06:08 Pulse 83 01/04/17 20:55 Resp 14 01/04/17 19:00 BP 123/75 01/02/17 06:08 Pulse Ox 100 01/04/17 19:00 Intake & Output 01/04/17 01/04/17 01/05/17 06:59 18:59 06:59 Intake Total 8074.511 5906.118 46 Output Total 822 1758 50 Balance 718.507 -691.882 -4 Weight 89.7 kg Intake: IV 158 150 6 CO/CI 50 60 Pressure Bag 108 90 6 Intake, IV Titration 1322.507 916.118 40 Amount ACETAMINOPHEN IV (For NPO 100 ) 1,000 mg In Empty Bag 1 bag @ 400 mls/hr IVPB Q6HR [facility] Rx#:[id number] Amiodarone 450 mg In 201.425 129.738 Dextrose 5% in Water 250 ml @ 1 MG/MIN 34.53 mls/ hr IV .Q7H31M [facility] Rx#: [id number] Clevidipine Butyrate 25 100 156.5 mg In Empty Bag 1 bag @ 1 MG/HR 2 mls/hr IV .Q24H [facility] Rx#:[id number] Diltiazem 125 mg In 125 Sodium Chloride 0.9% 100 ml @ 5 MG/HR 5 mls/hr IV .Q24H [facility] Rx#:[id number] Insulin Regular 100 unit 53.204 In Sodium Chloride 0.9% 100 ml @ Per Protocol IV .Q0M [facility] Rx#:[id number] Lactated Ringers 1,000 ml 600 580 40 @ 50 mls/hr IV .Q20H [facility] Rx#:[id number] Nitroglycerin-D5w Pmx 50 0 mg In Dextrose/Water 1 250ml.bag @ 10 MCG/MIN 3 mls/hr IV .Q24H [facility] Rx#: [id number] Propofol 500 mg In Empty 142.878 49.88 Bag 1 bag @ Titrate IV . Q0M [facility] Rx#:[id number] Other 60 Output: Chest Tube Drainage 250 200 Mediastinal 120 70 Right & Left Pleural 130 130 Urine 572 1558 50 Other: Voiding Method Indwelling Catheter Indwelling Catheter ABP, PAP, CO, CI - Last Documented Arterial Blood Pressure 103/41 Pulmonary Artery Pressure 41/15 Cardiac Output 7.1 Cardiac Index 3.6 - Exam GENERAL EXAM: Patient is extubated and seemed to be alert and oriented HEENT: Normocephalic. Normal reaction of pupils, equal size, normal range of extraocular motion. No erythema or exudates in the throat. NECK: No masses, no nuchal rigidity. CHEST: Postsurgical LUNGS: Diminished breath sounds at bases HEART: Irregular heart sounds ABDOMEN: No hepatosplenomegaly, normal bowel sounds, no guarding or rigidity. SKIN: No rashes CENTRAL NERVOUS SYSTEM: No focal deficits. EXTREMITIES: No cyanosis, clubbing or edema. - Labs CBC & Chem 7: 01/04/17 05:10 01/04/17 05:10 Labs: Abnormal Lab Results - Last 24 Hours (Table) 01/02/17 01/02/17 01/02/17 Range/Units 08:45 10:59 12:11 RBC (4.30-5.90) m/uL Hgb (13.0-17.5) gm/dL Hct (39.0-53.0) % Plt Count (150-450) k/uL ABG pH (7.35-7.45) ABG pCO2 (35-45) mmHg ABG pO2 244 H 167 H 396 H (83-108) mmHg ABG HCO3 (21-25) mmol/L ABG Total CO2 25 H 26 H (19-24) mmol/L ABG O2 Saturation 99.9 H 99.5 H 100.0 H (94-97) % ABG Hematocrit 33 L 26 L (34.0-46.0) % Sodium (137-145) mmol/L Glucose (74-99) mg/dL POC Glucose (mg/dL) (75-99) mg/dL Calcium (8.4-10.2) mg/dL AST (17-59) U/L Total Protein (6.3-8.2) g/dL Albumin (3.5-5.0) g/dL 01/02/17 01/02/17 01/02/17 Range/Units 12:41 13:12 14:07 RBC (4.30-5.90) m/uL Hgb (13.0-17.5) gm/dL Hct (39.0-53.0) % Plt Count (150-450) k/uL ABG pH 7.34 L 7.29 L (7.35-7.45) ABG pCO2 48 H 47 H 55 H (35-45) mmHg ABG pO2 227 H 279 H 281 H (83-108) mmHg ABG HCO3 26 H (21-25) mmol/L ABG Total CO2 27 H 27 H 28 H (19-24) mmol/L ABG O2 Saturation 99.8 H 99.9 H 99.8 H (94-97) % ABG Hematocrit 28 L 27 L 26 L (34.0-46.0) % Sodium (137-145) mmol/L Glucose (74-99) mg/dL POC Glucose (mg/dL) (75-99) mg/dL Calcium (8.4-10.2) mg/dL AST (17-59) U/L Total Protein (6.3-8.2) g/dL Albumin (3.5-5.0) g/dL 01/02/17 01/02/17 01/02/17 Range/Units 14:14 14:39 15:49 RBC (4.30-5.90) m/uL Hgb (13.0-17.5) gm/dL Hct (39.0-53.0) % Plt Count (150-450) k/uL ABG pH (7.35-7.45) ABG pCO2 46 H (35-45) mmHg ABG pO2 395 H 350 H 127 H (83-108) mmHg ABG HCO3 (21-25) mmol/L ABG Total CO2 26 H 26 H 25 H (19-24) mmol/L ABG O2 Saturation 100.0 H 99.9 H 98.8 H (94-97) % ABG Hematocrit 26 L 28 L 29 L (34.0-46.0) % Sodium (137-145) mmol/L Glucose (74-99) mg/dL POC Glucose (mg/dL) (75-99) mg/dL Calcium (8.4-10.2) mg/dL AST (17-59) U/L Total Protein (6.3-8.2) g/dL Albumin (3.5-5.0) g/dL 01/03/17 01/03/17 01/04/17 Range/Units 22:05 23:17 00:18 RBC (4.30-5.90) m/uL Hgb (13.0-17.5) gm/dL Hct (39.0-53.0) % Plt Count (150-450) k/uL ABG pH (7.35-7.45) ABG pCO2 (35-45) mmHg ABG pO2 (83-108) mmHg ABG HCO3 (21-25) mmol/L ABG Total CO2 (19-24) mmol/L ABG O2 Saturation (94-97) % ABG Hematocrit (34.0-46.0) % Sodium (137-145) mmol/L Glucose (74-99) mg/dL POC Glucose (mg/dL) 123 H 109 H 115 H (75-99) mg/dL Calcium (8.4-10.2) mg/dL AST (17-59) U/L Total Protein (6.3-8.2) g/dL Albumin (3.5-5.0) g/dL 01/04/17 01/04/17 01/04/17 Range/Units 01:08 02:04 04:06 RBC (4.30-5.90) m/uL Hgb (13.0-17.5) gm/dL Hct (39.0-53.0) % Plt Count (150-450) k/uL ABG pH (7.35-7.45) ABG pCO2 (35-45) mmHg ABG pO2 (83-108) mmHg ABG HCO3 (21-25) mmol/L ABG Total CO2 (19-24) mmol/L ABG O2 Saturation (94-97) % ABG Hematocrit (34.0-46.0) % Sodium (137-145) mmol/L Glucose (74-99) mg/dL POC Glucose (mg/dL) 119 H 119 H 122 H (75-99) mg/dL Calcium (8.4-10.2) mg/dL AST (17-59) U/L Total Protein (6.3-8.2) g/dL Albumin (3.5-5.0) g/dL 01/04/17 01/04/17 01/04/17 Range/Units 04:52 05:06 05:10 RBC (4.30-5.90) m/uL Hgb (13.0-17.5) gm/dL Hct (39.0-53.0) % Plt Count (150-450) k/uL ABG pH (7.35-7.45) ABG pCO2 (35-45) mmHg ABG pO2 61 L (83-108) mmHg ABG HCO3 (21-25) mmol/L ABG Total CO2 25 H (19-24) mmol/L ABG O2 Saturation 92.0 L (94-97) % ABG Hematocrit (34.0-46.0) % Sodium 133 L (137-145) mmol/L Glucose 124 H (74-99) mg/dL POC Glucose (mg/dL) 136 H (75-99) mg/dL Calcium 8.1 L (8.4-10.2) mg/dL AST 71 H (17-59) U/L Total Protein 4.7 L (6.3-8.2) g/dL Albumin 2.8 L (3.5-5.0) g/dL 01/04/17 01/04/17 01/04/17 Range/Units 05:10 07:11 07:55 RBC 3.24 L (4.30-5.90) m/uL Hgb 10.7 L (13.0-17.5) gm/dL Hct 29.6 L (39.0-53.0) % Plt Count 112 L (150-450) k/uL ABG pH (7.35-7.45) ABG pCO2 (35-45) mmHg ABG pO2 (83-108) mmHg ABG HCO3 (21-25) mmol/L ABG Total CO2 (19-24) mmol/L ABG O2 Saturation (94-97) % ABG Hematocrit (34.0-46.0) % Sodium (137-145) mmol/L Glucose (74-99) mg/dL POC Glucose (mg/dL) 135 H 120 H (75-99) mg/dL Calcium (8.4-10.2) mg/dL AST (17-59) U/L Total Protein (6.3-8.2) g/dL Albumin (3.5-5.0) g/dL 01/04/17 01/04/17 01/04/17 Range/Units 08:55 09:56 10:48 RBC (4.30-5.90) m/uL Hgb (13.0-17.5) gm/dL Hct (39.0-53.0) % Plt Count (150-450) k/uL ABG pH 7.49 H (7.35-7.45) ABG pCO2 30 L (35-45) mmHg ABG pO2 73 L (83-108) mmHg ABG HCO3 (21-25) mmol/L ABG Total CO2 (19-24) mmol/L ABG O2 Saturation (94-97) % ABG Hematocrit (34.0-46.0) % Sodium (137-145) mmol/L Glucose (74-99) mg/dL POC Glucose (mg/dL) 123 H 124 H (75-99) mg/dL Calcium (8.4-10.2) mg/dL AST (17-59) U/L Total Protein (6.3-8.2) g/dL Albumin (3.5-5.0) g/dL 01/04/17 01/04/17 01/04/17 Range/Units 11:22 12:35 13:56 RBC (4.30-5.90) m/uL Hgb (13.0-17.5) gm/dL Hct (39.0-53.0) % Plt Count (150-450) k/uL ABG pH (7.35-7.45) ABG pCO2 (35-45) mmHg ABG pO2 (83-108) mmHg ABG HCO3 (21-25) mmol/L ABG Total CO2 (19-24) mmol/L ABG O2 Saturation (94-97) % ABG Hematocrit (34.0-46.0) % Sodium (137-145) mmol/L Glucose (74-99) mg/dL POC Glucose (mg/dL) 124 H 128 H 122 H (75-99) mg/dL Calcium (8.4-10.2) mg/dL AST (17-59) U/L Total Protein (6.3-8.2) g/dL Albumin (3.5-5.0) g/dL 01/04/17 01/04/17 01/04/17 Range/Units 15:03 16:06 17:14 RBC (4.30-5.90) m/uL Hgb (13.0-17.5) gm/dL Hct (39.0-53.0) % Plt Count (150-450) k/uL ABG pH (7.35-7.45) ABG pCO2 (35-45) mmHg ABG pO2 (83-108) mmHg ABG HCO3 (21-25) mmol/L ABG Total CO2 (19-24) mmol/L ABG O2 Saturation (94-97) % ABG Hematocrit (34.0-46.0) % Sodium (137-145) mmol/L Glucose (74-99) mg/dL POC Glucose (mg/dL) 107 H 111 H 105 H (75-99) mg/dL Calcium (8.4-10.2) mg/dL AST (17-59) U/L Total Protein (6.3-8.2) g/dL Albumin (3.5-5.0) g/dL 01/04/17 01/04/17 01/04/17 Range/Units 18:17 19:26 21:04 RBC (4.30-5.90) m/uL Hgb (13.0-17.5) gm/dL Hct (39.0-53.0) % Plt Count (150-450) k/uL ABG pH (7.35-7.45) ABG pCO2 (35-45) mmHg ABG pO2 (83-108) mmHg ABG HCO3 (21-25) mmol/L ABG Total CO2 (19-24) mmol/L ABG O2 Saturation (94-97) % ABG Hematocrit (34.0-46.0) % Sodium (137-145) mmol/L Glucose (74-99) mg/dL POC Glucose (mg/dL) 106 H 105 H 101 H (75-99) mg/dL Calcium (8.4-10.2) mg/dL AST (17-59) U/L Total Protein (6.3-8.2) g/dL Albumin (3.5-5.0) g/dL Assessment and Plan (1) NSTEMI (non-ST elevated myocardial infarction) Status: Acute (2) Smoking Status: Acute (3) Peripheral vascular disease Status: Acute Plan: Patient's is extubated and seems to be clinically stable. Had some nonsustained V. tach and is on amiodarone. Continue maintaining sinus rhythm. Blood pressure is running high. Patient is currently on beta blockers, lipid- lowering agent and also aspirin and Plavix. We'll may add REJI inhibitor and his kidney functions are normal and will follow
[2017-01-04 22:35] LABS: Glucose,Whole Blood 102 mg/dL (75-99)
[2017-01-04] MEDS: SENNOSIDES-DOCUSATE SODIUM 1 EACH TAB PO SCH (22:39)
[2017-01-05 00:10] LABS: Glucose,Whole Blood 104 mg/dL (75-99)
[2017-01-05] MEDS: METOPROLOL TARTRATE 12.5 MG TAB PO SCH ×2 (00:10→08:06)
[2017-01-05] MEDS: HEPARIN SODIUM,PORCINE 5,000 UNIT/ML 1 ML VIAL SQ SCH ×4 (00:11→23:33)
[2017-01-05 01:55] LABS: Glucose,Whole Blood 115 mg/dL (75-99)
[2017-01-05] MEDS: HYDROcodone/APAP 5-325MG 1 EACH TAB PO PRN ×5 (02:12→20:26)
[2017-01-05] MEDS: LACTATED RINGERS 1,000 ML IV SCH (03:28)
[2017-01-05 04:43] LABS: Basophils % (A) 0 %; CH 31.2; CHCM 33.6; Eosinophils # (A) 0.1 k/uL (0-0.7); Eosinophils % (A) 2 %; HCT 27.4 % (39.0-53.0); HDW 2.57; Luc # (Auto) 0.11; Luc % (Auto) 2; Lymphocytes # (A) 1.2 k/uL (1.0-4.8); Lymphocytes % (A) 20 %; MCH 30.4 pg (25.0-35.0); MCHC 32.6 g/dL (31.0-37.0); MCV 93.2 fL (80.0-100.0); Monocytes # (A) 0.3 k/uL (0-1.0); Monocytes % (A) 4 %; Neutrophils # (A) 4.5 k/uL (1.3-7.7); Neutrophils % (A) 72 %; RBC 2.94 m/uL (4.30-5.90); RDW 13.8 % (11.5-15.5); WBC 6.3 k/uL (3.8-10.6); WBC (Perox) 6.65
[2017-01-05 04:46] LABS: Ionized Calcium 4.8 mg/dL (4.5-5.3)
[2017-01-05 04:56] LABS: ALT 34 U/L (21-72); AST 49 U/L (17-59); Alkaline Phosphatase 46 U/L (38-126); Anion Gap 5 mmol/L; Blood Urea Nitrogen 13 mg/dL (9-20); Calcium 7.9 mg/dL (8.4-10.2); Carbon Dioxide 27 mmol/L (22-30); Chloride 104 mmol/L (98-107); Glucose 98 mg/dL (74-99); Magnesium 2.2 mg/dL (1.6-2.3); Non-African American GFR(MDRD) >60 (>60 ml/min/1.73 sqM); Phosphorous 3.3 mg/dL (2.5-4.5); Potassium 3.8 mmol/L (3.5-5.1); Sodium 136 mmol/L (137-145); Total Bilirubin 0.8 mg/dL (0.2-1.3); Total Protein 4.7 g/dL (6.3-8.2)
[2017-01-05 05:00] LABS: HGB 8.9 gm/dL (13.0-17.5)
[2017-01-05] MEDS ORDERED: Potassium Replacement Protocol 1 EACH MISC MISCELLANE PRN (05:01)
[2017-01-05] MEDS ORDERED: POTASSIUM CHLORIDE ER 20 MEQ TAB.ER PO SCH (06:00)
--- NOTE | 2017-01-05 07:07 | XR ---
EXAMINATION TYPE: XR chest 1V portable DATE OF EXAM: 01/05/2017 6:32 AM Comparison: 01/04/2017 Clinical History: 52-year-old 56-year-old male postoperative cardiac surgery Findings: Median sternotomy wires are present with post-CABG clips in the mediastinum. Retained epicardial pace r leads are seen. Patient has been extubated in the interval with removal of NG tube and [place] ca theter. A right IJ sheath remains in place. The heart remains borderline in size with diffuse interst itial prominence, some patchy opacity in the retrocardiac region, normal variant azygous fissure, and also interval removal of the bilateral chest tubes. Impression: Overall stable appearance to the lungs, suspect underlying pulmonary vascular congestion and some pat david retrocardiac atelectasis.
[2017-01-05 08:01] LABS: Glucose,Whole Blood 105 mg/dL (75-99)
[2017-01-05] MEDS: CLOPIDOGREL 75 MG TAB PO SCH (08:06)
[2017-01-05] MEDS: AMIODARONE 200 MG TAB PO SCH ×2 (08:06→20:28)
[2017-01-05] MEDS: ASPIRIN 325 MG TAB PO SCH (08:06)
[2017-01-05] MEDS: MUPIROCIN 2% OINT 22 GM TUBE NASAL SCH ×2 (08:07→20:29)
[2017-01-05] MEDS: PANTOPRAZOLE 40 MG/10 ML VIAL IVP SCH (08:07)
[2017-01-05] MEDS: CHLORHEXIDINE GLUCONATE 15 ML CUP MUCOUS MEM SCH (08:07)
[2017-01-05] MEDS: IPRATROPIUM-ALBUTEROL 3 ML NEB INHALATION PRN ×3 (08:34→11:37)
[2017-01-05] MEDS ORDERED: SODIUM CHLORIDE 0.9% 1,000 ML IV SCH (09:00)
[2017-01-05] MEDS ORDERED: FUROSEMIDE 10 MG/ML 2 ML VIAL IV STA (09:45)
[2017-01-05] MEDS ORDERED: METOPROLOL TARTRATE 12.5 MG TAB PO ONE (10:00)
[2017-01-05 10:10] LABS: Glucose,Whole Blood 114 mg/dL (75-99)
[2017-01-05 12:03] LABS: Glucose,Whole Blood 100 mg/dL (75-99)
--- NOTE | 2017-01-05 14:21 | P.PN ---
Subjective 56-year-old male patient with severe triple-vessel coronary artery disease status post non-ST segment elevation myocardial infarction. The patient was taken to the operating room and he underwent four-vessel bypass surgery. I'm seeing this patient immediately after he arrived to the intensive care unit. The patient was sedated with Diprivan and he was, comfortable. He was on a mechanical ventilator and I put him on assist control mode at the rate of 12, tidal volume of 600, FiO2 was dropped down to 50% and he was PEEP of 5. He is loud gases on 100% FiO2 showed a pH of 7.42 with a pCO2 of 36 and pO2 of 236. His chest x-ray post surgery showed satisfactory position of the tubes. There was some mild to moderate central vascular congestion and patchy new left lateral basilar atelectatic change/infiltrates. The patient hemodynamically is stable. Initially his cardiac output was at 4 with an index of 2.0 with a PA pressures of 26/12. He was given 1 amp of the 50 mL of albumin which brought up his index up to 2.9. Is producing adequate amount of urine output. The output from the chest tube is none active at this point. No other significant events otherwise. He is producing adequate amount of urine output. On 01/03/2017, the patient is being seen in follow-up. The patient was kept intubated and mechanically ventilated throughout the night. I have him on a pressure control mode of ventilation at the pressure of 8, PEEP of 5, FiO2 of 60 % and rate of 12. Note that after the patient arrived from the operating room, he was actually taking well and we had dropped his FiO2 down to 60%. He acutely desaturated and had to put them back up to 100% FiO2. Overnight, he was switched a pressure control which improved to synchrony with the mechanical ventilator. He is pulling good tidal volumes at this points more than 700. His morning blood gases showed a pH of 7.4 with a pCO2 of 38 and pO2 of 63 and it was not an FiO2 of 50%. His chest x-ray showing stable postoperative findings. The patient's chest tubes and ET tube are all in good location. Scattered opacities are seen bilaterally and there is some mild cardiomegaly with mild to moderate central vascular congestion. The NG tube is in place and is putting out some minimal amount of coffee-ground material. Hemodynamically, the patient is stable. The patient is on a combination of Cardizem drip at 10 mg an hour and Cleviprex at 8 mg an hour. His most recent cardiac index is at 2.9. PA pressures are 30/18. Chest tubes are all in place and output is less than 50 mL an hour from the mediastinal and the pleural chest tubes. Hemoglobin is stable at this point. The patient remains sedated with Diprivan. The patient is calm and comfortable. On 01/04/2017 the patient is being seen in follow-up. The patient is postop day #2. Note that the patient. Weaning trials as the patient was having oxygen desaturations. This morning he still on a pressure control mode of ventilation and no changes have been on a mechanical ventilator. The patient was a 50% FiO2 and the saturation was around 97%. Note that the morning vent settings included a pressure control of 18, PEEP of 5, FiO2 of 50% and a rate of 12. Chest x-ray shows some increased interstitial markings bilaterally at the decubitus of the chest tubes are all in good location. The morning blood gases showed a pH of 7.4 with a pCO2 of 38 and pO2 of 63. It was not an FiO2 of 50%. The oxidation was not a good reflection of the patient's status knowing that the patient perplexing 97% following this blood gas. He was dynamically the patient was stable. The patient had 2 runs of V. tach late in the afternoon and for that reason the patient was loaded with amiodarone by cardiothoracic surgery. Despite this cardiac arrhythmia, the patient remained hemodynamically stable and the patient was producing adequate amount of urine output. He is off the nitroglycerin drip. He still on Cleviprex for blood pressure control. Sedated with Diprivan. Cardiac index was around 2.9. Based on all this, I thought was reasonable to give the patient is a sedation holiday and assess the patient's weaning parameters. This was done and the patient do not to have good weaning parameters with a rapid shallow breathing index of around 75. Following that, the patient was given a spelled his breathing trial with a pressure support of 5 and a PEEP of 5 and after 30 minutes blood gases showed a pH of 7.49 with a pCO2 of 30 and pO2 of 73. The patient was wide awake and alert and following commands and answering questions appropriately. No cardiac arrhythmias was noted. No tachypnea. No tachycardia. At that point decision was to extubate this patient 5 L/m nasal cannula. He did very well with this extubation and the saturation remained around 94-95%. On 01/05/2017 the patient is postop day #3. The patient is doing well. The patient has been extubated. Sitting up on a chair. He is on oxygen 3 L/m nasal cannula. Saturations are 9495%. Using scented spirometer. Hemodynamically stable. [place]-Estrell[place] catheter has been removed. All of the chest tubes have been removed. The patient is tolerating some diet. No chest pain. No nausea. No vomiting. Hasn't adequate urine output. Cleviprex drip has been discontinued. The patient was able to ambulate. Objective - Vital Signs Vital signs: Vital Signs Temp 98.4 F 01/05/17 12:00 Pulse 73 01/05/17 13:00 Resp 13 01/05/17 13:00 BP 121/69 01/05/17 13:00 Pulse Ox 95 01/05/17 13:00 Intake & Output 01/04/17 01/05/17 01/05/17 18:59 06:59 18:59 Intake Total 1066.118 665.249 200 Output Total 4694 633 7025 Balance -691.882 -229.751 -825 Weight 90.3 kg Intake: IV 150 30 CO/CI 60 Pressure Bag 90 30 Intake, IV Titration 916.118 635.249 200 Amount Amiodarone 450 mg In 129.738 Dextrose 5% in Water 250 ml @ 1 MG/MIN 34.53 mls/ hr IV .Q7H31M MAR[facility] Rx#: [id number] Clevidipine Butyrate 25 156.5 50 mg In Empty Bag 1 bag @ 1 MG/HR 2 mls/hr IV .Q24H [facility] Rx#:[id number] Insulin Regular 100 unit 35.249 In Sodium Chloride 0.9% 100 ml @ Per Protocol IV .Q0M [facility] Rx#:[id number] Lactated Ringers 1,000 ml 580 550 50 @ 50 mls/hr IV .Q20H [facility] Rx#:[id number] Propofol 500 mg In Empty 49.88 Bag 1 bag @ Titrate IV . Q0M [facility] Rx#:[id number] Sodium Chloride 0.9% 1, 150 000 ml @ 30 mls/hr IV . Q24H [facility] Rx#:[id number] Output: Chest Tube Drainage 200 Mediastinal 70 Right & Left Pleural 130 Urine 2104 [id number] Other: Voiding Method Indwelling Catheter Indwelling Catheter Indwelling Catheter ABP, PAP, CO, CI - Last Documented Arterial Blood Pressure 131/52 Pulmonary Artery Pressure 41/15 Cardiac Output 7.1 Cardiac Index 3.6 - Exam Awake and alert. Following simple commands. Patient is sitting up on a chair. Patient is calm and comfortable oxygen by nasal cannula. Lungs sounds are diminished bilaterally especially in lung bases. No wheezes or rhonchi. Sternum stable clean and intact. Sternum stable clean and intact.Cardiac exam revealed the PMI to be normally situated and sized. The rhythm was regular and no extrasystoles were noted during several minutes of auscultation. The first and second heart sounds were normal and physiologic splitting of the second heart sound was noted. There were no murmurs, rubs, clicks, or gallops.Abdominal exam revealed normal bowel sounds. The abdomen was soft, non- tender, and without masses, organomegaly, or appreciable enlargement of the abdominal aorta.Examination of the extremities revealed easily palpable radial, femoral and pedal pulses. There was no cyanosis, clubbing or edema. All of the surgical wounds are dry clean and intact. - Labs CBC & Chem 7: 01/05/17 04:25 01/05/17 09:00 Labs: Abnormal Lab Results - Last 24 Hours (Table) 01/04/17 01/04/17 01/04/17 Range/Units 15:03 16:06 17:14 RBC (4.30-5.90) m/uL Hgb (13.0-17.5) gm/dL Hct (39.0-53.0) % Plt Count (150-450) k/uL Sodium (137-145) mmol/L POC Glucose (mg/dL) 107 H 111 H 105 H (75-99) mg/dL Calcium (8.4-10.2) mg/dL Total Protein (6.3-8.2) g/dL Albumin (3.5-5.0) g/dL 01/04/17 01/04/17 01/04/17 Range/Units 18:17 19:26 21:04 RBC (4.30-5.90) m/uL Hgb (13.0-17.5) gm/dL Hct (39.0-53.0) % Plt Count (150-450) k/uL Sodium (137-145) mmol/L POC Glucose (mg/dL) 106 H 105 H 101 H (75-99) mg/dL Calcium (8.4-10.2) mg/dL Total Protein (6.3-8.2) g/dL Albumin (3.5-5.0) g/dL 01/04/17 01/05/17 01/05/17 Range/Units 22:33 00:09 01:53 RBC (4.30-5.90) m/uL Hgb (13.0-17.5) gm/dL Hct (39.0-53.0) % Plt Count (150-450) k/uL Sodium (137-145) mmol/L POC Glucose (mg/dL) 102 H 104 H 115 H (75-99) mg/dL Calcium (8.4-10.2) mg/dL Total Protein (6.3-8.2) g/dL Albumin (3.5-5.0) g/dL 01/05/17 01/05/17 01/05/17 Range/Units 04:25 04:25 08:00 RBC 2.94 L (4.30-5.90) m/uL Hgb 8.9 L D (13.0-17.5) gm/dL Hct 27.4 L (39.0-53.0) % Plt Count 101 L (150-450) k/uL Sodium 136 L (137-145) mmol/L POC Glucose (mg/dL) 105 H (75-99) mg/dL Calcium 7.9 L (8.4-10.2) mg/dL Total Protein 4.7 L (6.3-8.2) g/dL Albumin 2.5 L (3.5-5.0) g/dL 01/05/17 01/05/17 Range/Units 10:07 12:01 RBC (4.30-5.90) m/uL Hgb (13.0-17.5) gm/dL Hct (39.0-53.0) % Plt Count (150-450) k/uL Sodium (137-145) mmol/L POC Glucose (mg/dL) 114 H 100 H (75-99) mg/dL Calcium (8.4-10.2) mg/dL Total Protein (6.3-8.2) g/dL Albumin (3.5-5.0) g/dL Assessment and Plan Plan: Assessment 1 multivessel coronary artery disease status post non-ST segment elevation myocardial infarctions, status post four-vessel bypass surgery patient is postop day #3 2 post operative hypoxemia probably secondary to microatelectasis. There is some increased interstitial markings bilaterally. Hemodynamically the patient is stable. The patient is on a pressure control mode of ventilation with an FiO2 of 60% and a 5 of PEEP. Patient's pulse ox is in the 92-90% range and pO2 was 63 on 60% FiO2. On 01/04/2017 the patient was weaned off the mechanical ventilated and the patient was extubated without any major difficulties. The postoperative hypoxemia that was noted was probably related to a mild component of acute lung injury alternatively microatelectasis and some increased interstitial markings probably due to fluid overload could've contributed to his hypoxemia. All these have improved and the patient is currently on 5 L of oxygen by nasal cannula saturation above 97%. Chest tubes are all in place. Hemodynamically stable. On 01/05/2017, the patient is weaned off the mechanical ventilator. The patient is currently on oxygen 3 L/m nasal cannula. Hemodynamically stable. No significant rest with difficulties. Chest x-ray from today was reviewed. All of the chest tubes have been removed. No significant respiratory difficulties for now. 3 post operative nonsustained V. tach, on amiodarone orally. The patient was loaded with amiodarone. No further cardiac arrhythmias over the past 24 hours. 4 postoperative anemia with hemoglobin of 8.9 Plan Continue pulmonary toileting. Incentive spirometer. No cough or pain. Oral amiodarone for postoperative ventricular tachycardia. Chest x-ray findings are stable for now. We'll follow. Keep the patient ICU for another 24 hours.
--- NOTE | 2017-01-05 15:22 | P.PN ---
Subjective Principal diagnosis: Non-ST elevation [place], multivessel disease, status post CABG This 56-year-old gentleman was admitted with a prolonged chest pain and positive troponins. Cardiac catheterization revealed triple-vessel disease. Patient is seen and evaluated by cardiac surgeon. Patient is scheduled to have bypass surgery on Monday. Clinically patient is doing well. Denies any chest pain or shortness of breath or dizziness. Patient underwent aortocoronary bypass surgery with VELÁSQUEZ graft to the LAD, DEEPA graft to the OM branch and vein grafts to the diagonal and distal circumflex. Patient is stable hemodynamically. Patient has been having some accelerated junctional rhythm alternating with sinus rhythm. Patient is having some issues with oxygenation and his not still extubated. Guest Attendant working on it and probably will be with later today. His liver and kidney functions are normal. His mental status is intact Patient is reexamined on 04 of January, The patient is extubated. He seems to be tolerating it very well and doesn't appear to be in acute distress. His blood pressure has been running high which is being controlled with IV cleviprex . He is also on beta deisy and lipid-lowering agents. His hemoglobin is 10.7. Possible transfer to telemetry unit within next 24 hours. Patient is reexamined and 05 of January. He is feeling much better compared to yesterday. He seemed to be good frame of mind. His maintaining sinus rhythm. His blood pressures running about 150 systolic. Lungs show some decreased breath sounds at bases. Patient is being transferred to telemetry unit. Since incentive spirometry to be continued. Increase activity as tolerated Objective - Vital Signs Vital signs: Vital Signs Temp 98.4 F 01/05/17 12:00 Pulse 78 01/05/17 14:00 Resp 16 01/05/17 14:00 BP 121/69 01/05/17 13:00 Pulse Ox 100 01/05/17 14:00 Intake & Output 01/04/17 01/05/17 01/05/17 18:59 06:59 18:59 Intake Total 1066.118 665.249 230 Output Total 7187 166 7020 Balance -691.882 -229.751 -795 Weight 90.3 kg Intake: IV 150 30 CO/CI 60 Pressure Bag 90 30 Intake, IV Titration 916.118 635.249 230 Amount Amiodarone 450 mg In 129.738 Dextrose 5% in Water 250 ml @ 1 MG/MIN 34.53 mls/ hr IV .Q7H31M [facility] Rx#: [id number] Clevidipine Butyrate 25 156.5 50 mg In Empty Bag 1 bag @ 1 MG/HR 2 mls/hr IV .Q24H [facility] Rx#:[id number] Insulin Regular 100 unit 35.249 In Sodium Chloride 0.9% 100 ml @ Per Protocol IV .Q0M [facility] Rx#:[id number] Lactated Ringers 1,000 ml 580 550 50 @ 50 mls/hr IV .Q20H [facility] Rx#:[id number] Propofol 500 mg In Empty 49.88 Bag 1 bag @ Titrate IV . Q0M [facility] Rx#:[id number] Sodium Chloride 0.9% 1, 180 000 ml @ 30 mls/hr IV . Q24H [facility] Rx#:[id number] Output: Chest Tube Drainage 200 Mediastinal 70 Right & Left Pleural 130 Urine 6430 211 6659 Other: Voiding Method Indwelling Catheter Indwelling Catheter Indwelling Catheter ABP, PAP, CO, CI - Last Documented Arterial Blood Pressure 139/53 Pulmonary Artery Pressure 41/15 Cardiac Output 7.1 Cardiac Index 3.6 - Exam GENERAL EXAM: Patient is extubated and seemed to be alert and oriented HEENT: Normocephalic. Normal reaction of pupils, equal size, normal range of extraocular motion. No erythema or exudates in the throat. NECK: No masses, no nuchal rigidity. CHEST: Postsurgical LUNGS: Diminished breath sounds at bases HEART: Irregular heart sounds ABDOMEN: No hepatosplenomegaly, normal bowel sounds, no guarding or rigidity. SKIN: No rashes CENTRAL NERVOUS SYSTEM: No focal deficits. EXTREMITIES: No cyanosis, clubbing or edema. - Labs CBC & Chem 7: 01/05/17 04:25 01/05/17 09:00 Labs: Abnormal Lab Results - Last 24 Hours (Table) 01/04/17 01/04/17 01/04/17 Range/Units 16:06 17:14 18:17 RBC (4.30-5.90) m/uL Hgb (13.0-17.5) gm/dL Hct (39.0-53.0) % Plt Count (150-450) k/uL Sodium (137-145) mmol/L POC Glucose (mg/dL) 111 H 105 H 106 H (75-99) mg/dL Calcium (8.4-10.2) mg/dL Total Protein (6.3-8.2) g/dL Albumin (3.5-5.0) g/dL 01/04/17 01/04/17 01/04/17 Range/Units 19:26 21:04 22:33 RBC (4.30-5.90) m/uL Hgb (13.0-17.5) gm/dL Hct (39.0-53.0) % Plt Count (150-450) k/uL Sodium (137-145) mmol/L POC Glucose (mg/dL) 105 H 101 H 102 H (75-99) mg/dL Calcium (8.4-10.2) mg/dL Total Protein (6.3-8.2) g/dL Albumin (3.5-5.0) g/dL 01/05/17 01/05/17 01/05/17 Range/Units 00:09 01:53 04:25 RBC (4.30-5.90) m/uL Hgb (13.0-17.5) gm/dL Hct (39.0-53.0) % Plt Count (150-450) k/uL Sodium 136 L (137-145) mmol/L POC Glucose (mg/dL) 104 H 115 H (75-99) mg/dL Calcium 7.9 L (8.4-10.2) mg/dL Total Protein 4.7 L (6.3-8.2) g/dL Albumin 2.5 L (3.5-5.0) g/dL 01/05/17 01/05/17 01/05/17 Range/Units 04:25 08:00 10:07 RBC 2.94 L (4.30-5.90) m/uL Hgb 8.9 L D (13.0-17.5) gm/dL Hct 27.4 L (39.0-53.0) % Plt Count 101 L (150-450) k/uL Sodium (137-145) mmol/L POC Glucose (mg/dL) 105 H 114 H (75-99) mg/dL Calcium (8.4-10.2) mg/dL Total Protein (6.3-8.2) g/dL Albumin (3.5-5.0) g/dL 01/05/17 Range/Units 12:01 RBC (4.30-5.90) m/uL Hgb (13.0-17.5) gm/dL Hct (39.0-53.0) % Plt Count (150-450) k/uL Sodium (137-145) mmol/L POC Glucose (mg/dL) 100 H (75-99) mg/dL Calcium (8.4-10.2) mg/dL Total Protein (6.3-8.2) g/dL Albumin (3.5-5.0) g/dL Assessment and Plan (1) NSTEMI (non-ST elevated myocardial infarction) Status: Acute (2) Smoking Status: Acute (3) Peripheral vascular disease Status: Acute Plan: Patient seemed to be much better. He is being transferred to telemetry unit. Increase activity as tolerated. Continue current medical therapy
[2017-01-05 16:25] LABS: Glucose,Whole Blood 120 mg/dL (75-99)
--- NOTE | 2017-01-05 16:44 | P.PN ---
<Baltazar Chiu Juan M - Last Filed: 01/05/17 16:44> Progress Note - Text CV Surgery Nursing Principal diagnosis: Coronary artery disease POD #3, status post urgent coronary artery bypass grafting 4 vessels with placement of his left internal mammary artery to his obtuse marginal 1 coronary artery, right internal mammary artery to his left anterior descending coronary artery, reverse greater saphenous vein graft placed to his obtuse marginal coronary artery #3, and a reverse greater saphenous vein graft placed to his diagonal coronary artery. Endoscopic vein harvest of his right greater saphenous vein. Intraoperative transesophageal echocardiogram and epi-aortic ultrasound. Patient is awake and alert, rates his pain at 8 out of 10 on the pain scale and is currently being given pain medication. Vital Signs: Afebrile Vital Signs - 24 hr 01/04/17 01/04/17 01/04/17 13:00 14:00 15:00 Temperature Pulse Rate 80 80 84 Pulse Rate [ Left Pulse Oximetery] Respiratory 25 H 25 H 25 H Rate Blood Pressure O2 Sat by Pulse 96 94 L 85 L Oximetry 01/04/17 01/04/17 01/04/17 16:00 17:00 17:40 Temperature Pulse Rate 83 86 84 Pulse Rate [ Left Pulse Oximetery] Respiratory 19 28 H Rate Blood Pressure O2 Sat by Pulse 94 L 95 97 Oximetry 01/04/17 01/04/17 01/04/17 18:00 19:00 20:00 Temperature 98.8 F Pulse Rate 85 87 80 Pulse Rate [ Left Pulse Oximetery] Respiratory 12 14 15 Rate Blood Pressure O2 Sat by Pulse 97 100 100 Oximetry 01/04/17 01/04/17 01/04/17 20:40 20:55 21:00 Temperature Pulse Rate 77 83 81 Pulse Rate [ Left Pulse Oximetery] Respiratory 15 Rate Blood Pressure O2 Sat by Pulse 100 Oximetry 01/04/17 01/04/17 01/04/17 22:00 23:00 23:52 Temperature 98.3 F Pulse Rate 78 75 73 Pulse Rate [ Left Pulse Oximetery] Respiratory 17 12 14 Rate Blood Pressure O2 Sat by Pulse 100 100 100 Oximetry 01/04/17 01/05/17 01/05/17 23:53 00:00 01:00 Temperature Pulse Rate 73 75 Pulse Rate [ Left Pulse Oximetery] Respiratory 12 14 14 Rate Blood Pressure O2 Sat by Pulse 100 99 Oximetry 01/05/17 01/05/17 01/05/17 02:00 03:00 03:29 Temperature Pulse Rate 74 68 Pulse Rate [ Left Pulse Oximetery] Respiratory 14 14 14 Rate Blood Pressure O2 Sat by Pulse 100 100 Oximetry 01/05/17 01/05/17 01/05/17 04:00 05:00 06:00 Temperature Pulse Rate 72 66 75 Pulse Rate [ Left Pulse Oximetery] Respiratory 18 12 14 Rate Blood Pressure O2 Sat by Pulse 98 99 98 Oximetry 01/05/17 01/05/17 01/05/17 07:00 08:00 08:37 Temperature 98.6 F Pulse Rate 71 77 86 Pulse Rate [ 72 Left Pulse Oximetery] Respiratory 12 15 Rate Blood Pressure O2 Sat by Pulse 100 96 Oximetry 01/05/17 01/05/17 01/05/17 08:51 09:00 10:00 Temperature Pulse Rate 86 68 70 Pulse Rate [ Left Pulse Oximetery] Respiratory 13 12 Rate Blood Pressure O2 Sat by Pulse 100 93 L Oximetry 01/05/17 01/05/17 01/05/17 11:00 11:37 11:40 Temperature Pulse Rate 74 78 Pulse Rate [ 72 Left Pulse Oximetery] Respiratory 13 13 Rate Blood Pressure O2 Sat by Pulse 94 L Oximetry 01/05/17 01/05/17 11:55 12:00 Temperature 98.4 F Pulse Rate 80 72 Pulse Rate [ Left Pulse Oximetery] Respiratory 12 Rate Blood Pressure 121/69 O2 Sat by Pulse 100 Oximetry ABP, PAP, CO, CI - Last 8 Hours Arterial Blood Pressure 133/52 Arterial Blood Pressure 137/65 Arterial Blood Pressure 125/50 Arterial Blood Pressure 115/52 Arterial Blood Pressure 125/53 Arterial Blood Pressure 126/53 Arterial Blood Pressure 142/57 Arterial Blood Pressure 109/46 Labs: Short CBC 01/05/17 Range/Units 04:25 WBC 6.3 (3.8-10.6) k/uL Hgb 8.9 L D (13.0-17.5) gm/dL Hct 27.4 L (39.0-53.0) % Plt Count 101 L (150-450) k/uL Neutrophils # 4.5 (1.3-7.7) k/uL BMP 01/05/17 01/05/17 04:25 09:00 Sodium 136 L Potassium 3.8 4.1 Chloride 104 Carbon Dioxide 27 BUN 13 Creatinine 0.68 Glucose 98 Calcium 7.9 L Liver Function 01/05/17 Range/Units 04:25 Total Bilirubin 0.8 (0.2-1.3) mg/dL AST 49 (17-59) U/L ALT 34 (21-72) U/L Alkaline Phosphatase 46 (38-126) U/L Albumin 2.5 L (3.5-5.0) g/dL ABG ABG pH 7.49 (7.35-7.45) H 01/04/17 10:48 ABG pCO2 30 mmHg (35-45) L 01/04/17 10:48 ABG pO2 73 mmHg (83-108) L 01/04/17 10:48 ABG O2 Saturation 95.9 % (94-97) 01/04/17 10:48 PT/INR, D-dimer PT 10.0 sec (9.0-12.0) 01/05/17 04:25 INR 1.0 (<1.1) 01/05/17 04:25 Microbiology 12/30/16 14:13 Nasal Swab Nasal Screen MRSA/MSSA ([place]KSANDER) - Final 12/30/16 14:30 Urine,Voided Urine Culture - Final IV Fluids: Lactated Ringer's at 50 mL per hour. CVP: 7 Lungs: Few scattered crackles to bilateral bases, essentially clear to his upper lobes. Respirations are symmetrical and unlabored. O2 sat: 97% on 2 L nasal cannula. I/S: 1000 mL, reviewed with the patient importance of using his incentive spirometry every hour while awake. Patient did give a good return demonstration on his incentive spirometry. Heart: S1S2, regular rhythm and rate, negative for S3, gallop or murmur. Bedside telemetry showing normal sinus rhythm heart rate 73. Sternum stable, chest incision clean with dressing clean and dry. Heart hugger in place, patient demonstrating proper use of his heart hugger. Right leg incisions clean dry, and well approximated. No drainage noted. Knee-high SHIRA hose and sequential compression devices in place to bilateral lower extremity Gentry. Abdomen: Soft, Positive bowel sounds present in all 4 quadrants. Positive flatus. CBGs: 101-115 mg/dL in the last 24 hours. U/O: Adequate, Zavala catheter for accurate I&O. 405 mL output in the last 8 hours. 24 hr Total: Intake & Output 01/03/17 01/04/17 01/05/17 01/06/17 06:59 06:59 06:59 06:59 Intake Total 7777.233 2910.969 1731.367 170 Output Total 3921 1710 2653 225 Balance -1975.990 956.969 -921.633 -55 Weight 89.9 kg 89.7 kg 90.3 kg Active Medications Hydrocodone Bitart/Acetaminophen (Weldon 5-325) 2 each PO Q4HR PRN PRN Reason: Severe Pain Last Admin: 01/05/17 08:05 Dose: 2 each Hydrocodone Bitart/Acetaminophen (Weldon 5-325) 1 each PO Q4HR PRN PRN Reason: Moderate Pain Albuterol/Ipratropium (Duoneb 0.5 Mg-3 Mg/3 Ml Soln) 3 ml INHALATION RT-Q2H PRN PRN Reason: Shortness Of Breath Or Wheezing Last Admin: 01/05/17 11:37 Dose: 3 ml Amiodarone HCl (Cordarone) 400 mg PO BID [facility] Last Admin: 01/05/17 08:06 Dose: 400 mg Aspirin (Aspirin) 325 mg PO DAILY [facility] Last Admin: 01/05/17 08:06 Dose: 325 mg Atorvastatin Calcium (Lipitor) 40 mg PO HS [facility] Last Admin: 01/04/17 21:09 Dose: 40 mg Benzocaine/Menthol (Cepacol Lozenge) 1 each MUCOUS MEM Q2H PRN PRN Reason: Sore Throat Bisacodyl (Dulcolax) 10 mg RECTAL DAILY PRN PRN Reason: Constipation Chlorhexidine Gluconate (Peridex) 15 ml MUCOUS MEM BID [facility] Last Admin: 01/05/17 08:07 Dose: 15 ml Clopidogrel Bisulfate (Plavix) 75 mg PO DAILY [facility] Last Admin: 01/05/17 08:06 Dose: 75 mg Heparin Sodium (Porcine) (Heparin) 5,000 unit SQ Q8HR [facility] Last Admin: 01/05/17 08:07 Dose: 5,000 unit Clevidipine 25 mg/ IV Solution 50 mls @ 2 mls/hr IV .Q24H [facility]; 1 MG/HR PRN Reason: Protocol Last Titration: 01/05/17 00:11 Dose: Infused Insulin Human Regular 100 unit (/ Sodium Chloride) 101 mls @ 0 mls/hr IV .Q0M [facility]; Per Protocol PRN Reason: Protocol Last Titration: 01/04/17 22:37 Dose: 0 units/hr, 0 mls/hr Lactated Ringer's (Lactated Ringers) 1,000 mls @ 50 mls/hr IV .Q20H [facility] Last Admin: 01/05/17 03:28 Dose: Not Given Sodium Chloride (Saline 0.9%) 1,000 mls @ 30 mls/hr IV .Q24H [facility] Last Admin: 01/05/17 09:09 Dose: 30 mls/hr Magnesium Hydroxide (Milk Of Magnesia) 2,400 mg PO BID PRN PRN Reason: Constipation Metoclopramide HCl (Reglan) 10 mg IVP Q4H PRN PRN Reason: Nausea And Vomiting Metoprolol Tartrate (Lopressor) 25 mg PO BID [facility] Miscellaneous Information (Magnesium Per Protocol) 1 each MISCELLANE DAILY PRN ; Protocol PRN Reason: Per Protocol Miscellaneous Information (Phosphorus Per Protocol) 1 each MISCELLANE DAILY PRN ; Protocol PRN Reason: Per Protocol Miscellaneous Information (Potassium Per Protocol) 1 each MISCELLANE DAILY PRN ; Protocol PRN Reason: Per Protocol Miscellaneous Information (Potassium Per Protocol) 1 each MISCELLANE DAILY PRN ; Protocol PRN Reason: Per Protocol Morphine Sulfate (Morphine Sulfate (Inj)) 2 mg IVP Q2H PRN PRN Reason: Severe Pain Last Admin: 01/04/17 17:08 Dose: 2 mg Mupirocin (Bactroban Oint) 1 applic NASAL BID [facility] Stop: 01/05/17 21:01 Last Admin: 01/05/17 08:07 Dose: 1 applic Ondansetron HCl (Zofran) 4 mg IVP Q6HR PRN PRN Reason: Nausea And Vomiting Pantoprazole Sodium (Protonix) 40 mg PO DAILY [facility] Senna/Docusate Sodium (Senokot-S) 2 each PO HS [facility] Last Admin: 01/04/17 22:39 Dose: 2 each Plan: 1. Continue aspirin, statin, beta deisy. His metoprolol will be increased to 25 mg by mouth twice a day. 2. The patient was extubated yesterday and is doing well on 2 L nasal cannula. Continue to encourage use of his incentive spirometry. Pulmonary management and recommendations per Dr. Hoff. 3. GI and DVT prophylaxis in place. 4. Blood sugar management per Dr. Carver's recommendations. 5. CBC, CMP and 2 view chest x-ray in a.m. 6. The patient will be transferred out of the ICU to [facility] today for further rehabilitation and monitoring. 7. Zavala catheter for accurate I&O. Zavala catheter will be discontinued today. 8. Lasix 20 mg IV 1 now. Course will be discontinued, saline lock IV fluids. 9. Further recommendations as patient progresses. <Evelio Wise - Last Filed: 01/05/17 16:48> Progress Note - Text The patient was seen and examined. I agree with the above assessment and plan. Overall he continues to improve. He remains in normal sinus rhythm. We did increase his beta deisy this morning. He is still having incisional discomfort. He has been wearing his heart hugger and receiving narcotics as needed. He ambulated this afternoon. He is currently on 3 L nasal cannula and denies significant choice of breath. His laboratory studies appear to be satisfactory. He was given Lasix this morning with a good response.
[2017-01-05] MEDS: INSULIN LISPRO (humaLOG) 300 UNIT/3 ML VIAL SQ SCH ×2 (17:16→20:51)
--- NOTE | 2017-01-05 17:27 | P.PN ---
Subjective This is a 56-year-old gentleman who is postop day 2 from a quadruple coronary bypass surgery. Patient is seen in the intensive care unit is status post extubation at this time. Patient continues to have chest tubes at this time. Patient's convocation's included postoperative sustained VT currently maintained on amiodarone drip. Patient is awake is answering questions appropriately no further abnormalities were reported. 01/05/17 No new overnight events No abnormalities on telemetry reported. Objective - Vital Signs Vital signs: Vital Signs Temp 97.2 F L 01/05/17 15:19 Pulse 74 01/05/17 15:19 Resp 16 01/05/17 15:19 BP 121/69 01/05/17 13:00 Pulse Ox 97 01/05/17 15:19 Intake & Output 01/04/17 01/05/17 01/05/17 18:59 06:59 18:59 Intake Total 1066.118 665.249 230 Output Total 9566 999 5054 Balance -691.882 -229.751 -795 Weight 90.3 kg Intake: IV 150 30 CO/CI 60 Pressure Bag 90 30 Intake, IV Titration 916.118 635.249 230 Amount Amiodarone 450 mg In 129.738 Dextrose 5% in Water 250 ml @ 1 MG/MIN 34.53 mls/ hr IV .Q7H31M [facility] Rx#: [id number] Clevidipine Butyrate 25 156.5 50 mg In Empty Bag 1 bag @ 1 MG/HR 2 mls/hr IV .Q24H [facility] Rx#:[id number] Insulin Regular 100 unit 35.249 In Sodium Chloride 0.9% 100 ml @ Per Protocol IV .Q0M [facility] Rx#:[id number] Lactated Ringers 1,000 ml 580 550 50 @ 50 mls/hr IV .Q20H [facility] Rx#:[id number] Propofol 500 mg In Empty 49.88 Bag 1 bag @ Titrate IV . Q0M [facility] Rx#:[id number] Sodium Chloride 0.9% 1, 180 000 ml @ 30 mls/hr IV . Q24H [facility] Rx#:[id number] Output: Chest Tube Drainage 200 Mediastinal 70 Right & Left Pleural 130 Urine 2432 319 3647 Other: Voiding Method Indwelling Catheter Indwelling Catheter Indwelling Catheter ABP, PAP, CO, CI - Last Documented Arterial Blood Pressure 139/53 Pulmonary Artery Pressure 41/15 Cardiac Output 7.1 Cardiac Index 3.6 - Exam Gen. appearance awake alert is answering questions appropriately Lungs diminished breath sounds bilaterally , crackles appreciated heart S1-S2 heard no murmurs appreciated Abdomen is soft nontender no organomegaly. Lower extremities no significant edema noted. Neuro no focal motor or sensory deficits noted. - Labs CBC & Chem 7: 01/05/17 04:01/05/17 09:00 Labs: Abnormal Lab Results - Last 24 Hours (Table) 01/04/17 01/04/17 01/04/17 Range/Units 18:17 19:26 21:04 RBC (4.30-5.90) m/uL Hgb (13.0-17.5) gm/dL Hct (39.0-53.0) % Plt Count (150-450) k/uL Sodium (137-145) mmol/L POC Glucose (mg/dL) 106 H 105 H 101 H (75-99) mg/dL Calcium (8.4-10.2) mg/dL Total Protein (6.3-8.2) g/dL Albumin (3.5-5.0) g/dL 01/04/17 01/05/17 01/05/17 Range/Units 22:33 00:09 01:53 RBC (4.30-5.90) m/uL Hgb (13.0-17.5) gm/dL Hct (39.0-53.0) % Plt Count (150-450) k/uL Sodium (137-145) mmol/L POC Glucose (mg/dL) 102 H 104 H 115 H (75-99) mg/dL Calcium (8.4-10.2) mg/dL Total Protein (6.3-8.2) g/dL Albumin (3.5-5.0) g/dL 01/05/17 01/05/17 01/05/17 Range/Units 04:25 04:25 08:00 RBC 2.94 L (4.30-5.90) m/uL Hgb 8.9 L D (13.0-17.5) gm/dL Hct 27.4 L (39.0-53.0) % Plt Count 101 L (150-450) k/uL Sodium 136 L (137-145) mmol/L POC Glucose (mg/dL) 105 H (75-99) mg/dL Calcium 7.9 L (8.4-10.2) mg/dL Total Protein 4.7 L (6.3-8.2) g/dL Albumin 2.5 L (3.5-5.0) g/dL 01/05/17 01/05/17 01/05/17 Range/Units 10:07 12:01 16:24 RBC (4.30-5.90) m/uL Hgb (13.0-17.5) gm/dL Hct (39.0-53.0) % Plt Count (150-450) k/uL Sodium (137-145) mmol/L POC Glucose (mg/dL) 114 H 100 H 120 H (75-99) mg/dL Calcium (8.4-10.2) mg/dL Total Protein (6.3-8.2) g/dL Albumin (3.5-5.0) g/dL Assessment and Plan Plan: #1 CAD status post CABG 4 postop day 3 #2 acute hypoxic respiratory failure as expected from the recent surgery #3 sustained VT currently on amiodarone drip no further episodes noted #4 postoperative anemia as expected from the recent surgery #5 diabetes mellitus currently maintained a 1.5 units of insulin per hour #6 history of hypertension Plan doing well no new overnight events Off insulin drip Continue insulin sliding scale.
[2017-01-05 18:51] LABS: Hemoglobin A1C 5.7 % (4.2-6.1)
[2017-01-05] MEDS: ATORVASTATIN 40 MG TAB PO SCH (20:28)
[2017-01-05] MEDS: METOPROLOL TARTRATE 25 MG TAB PO SCH (20:29)
[2017-01-05] MEDS: SENNOSIDES-DOCUSATE SODIUM 1 EACH TAB PO SCH (20:31)
[2017-01-05 20:34] LABS: Glucose,Whole Blood 118 mg/dL (75-99)
[2017-01-06] MEDS: HYDROcodone/APAP 5-325MG 1 EACH TAB PO PRN ×6 (00:15→20:29)
[2017-01-06 03:33] LABS: Glucose,Whole Blood 114 mg/dL (75-99)
[2017-01-06] MEDS: INSULIN LISPRO (humaLOG) 300 UNIT/3 ML VIAL SQ SCH ×5 (04:20→21:37)
[2017-01-06 05:33] LABS: Glucose,Whole Blood 116 mg/dL (75-99)
[2017-01-06 06:55] LABS: Basophils % (A) 0 %; CH 31.1; CHCM 33.2; Eosinophils # (A) 0.2 k/uL (0-0.7); Eosinophils % (A) 3 %; HCT 28.9 % (39.0-53.0); HDW 2.64; HGB 9.2 gm/dL (13.0-17.5); Luc # (Auto) 0.12; Luc % (Auto) 2; Lymphocytes # (A) 0.9 k/uL (1.0-4.8); Lymphocytes % (A) 18 %; MCH 30.1 pg (25.0-35.0); MCV 94.2 fL (80.0-100.0); Mean Platelet Volume 7.2; Monocytes # (A) 0.3 k/uL (0-1.0); Monocytes % (A) 6 %; Neutrophils # (A) 3.8 k/uL (1.3-7.7); Neutrophils % (A) 71 %; RBC 3.07 m/uL (4.30-5.90); RDW 13.7 % (11.5-15.5); WBC 5.3 k/uL (3.8-10.6); WBC (Perox) 5.71
[2017-01-06 07:05] LABS: Anion Gap 5 mmol/L; Blood Urea Nitrogen 14 mg/dL (9-20); Calcium 8.3 mg/dL (8.4-10.2); Carbon Dioxide 29 mmol/L (22-30); Chloride 101 mmol/L (98-107); Glucose 103 mg/dL (74-99); Magnesium 2.3 mg/dL (1.6-2.3); Non-African American GFR(MDRD) >60 (>60 ml/min/1.73 sqM); Potassium 3.9 mmol/L (3.5-5.1); Sodium 135 mmol/L (137-145)
--- NOTE | 2017-01-06 07:06 | XR ---
EXAMINATION TYPE: XR chest 2V DATE OF EXAM: 01/06/2017 6:52 AM COMPARISON: Chest x-ray from yesterday. HISTORY: Postop CABG procedure. TECHNIQUE: Frontal and lateral views of the chest are obtained. FINDINGS: Post CABG changes with mediastinal clips and sternal wires is present. An azygos lobe is se en. There is background chronic parenchymal change with central vascular congestion. No pneumothorax is seen. Epicardial pacer wires are present. Small bilateral pleural effusions are present on lateral view. The cardiac silhouette size is stable and upper limits of normal. The osseous structures are intact. IMPRESSION: Background of chronic parenchymal fibrotic changes with mild central vascular congestion and small bilateral pleural effusions all redemonstrated.
[2017-01-06] MEDS: IPRATROPIUM-ALBUTEROL 3 ML NEB INHALATION PRN ×3 (08:37→20:10)
[2017-01-06] MEDS: METOPROLOL TARTRATE 25 MG TAB PO SCH ×2 (08:41→20:28)
[2017-01-06] MEDS: CLOPIDOGREL 75 MG TAB PO SCH (08:41)
[2017-01-06] MEDS: HEPARIN SODIUM,PORCINE 5,000 UNIT/ML 1 ML VIAL SQ SCH ×3 (08:41→23:31)
[2017-01-06] MEDS: ASPIRIN 325 MG TAB PO SCH (08:41)
[2017-01-06] MEDS: PANTOPRAZOLE 40 MG TABLET PO SCH (08:41)
[2017-01-06] MEDS: AMIODARONE 200 MG TAB PO SCH ×2 (08:42→20:28)
[2017-01-06 09:25] VITALS: BMI 28.5
[2017-01-06 12:05] LABS: Glucose,Whole Blood 101 mg/dL (75-99)
[2017-01-06] MEDS ORDERED: FUROSEMIDE 10 MG/ML 2 ML VIAL IV STA (14:31)
--- NOTE | 2017-01-06 14:41 | P.PN ---
Subjective Principal diagnosis: This is a 56-year-old gentleman who is status post coronary artery bypass grafting surgery. He was seen and examined on the telemetry unit today, overall doing very well. He states that his oxygen came off for a couple of hours and he felt somewhat lightheaded. At the time of our examination he is feeling much better. Escher 135/80 with a heart rate in the 70s. HGB today 9.2 , potassium 3.9. Objective - Vital Signs Vital signs: Vital Signs Temp 98.1 F 01/06/17 08:00 Pulse 80 01/06/17 13:44 Resp 16 01/06/17 08:41 BP 135/79 01/06/17 11:11 Pulse Ox 98 01/06/17 11:11 Intake & Output 01/05/17 01/06/17 01/06/17 18:59 06:59 18:59 Intake Total 230 100 158 Output Total 1025 350 Balance -795 -250 158 Weight 87.8 kg 87.8 kg Intake: IV 0 Pressure Bag 0 Intake, IV Titration 230 Amount Lactated Ringers 1,000 ml 50 @ 50 mls/hr IV .Q20H [facility] Rx#:[id number] Sodium Chloride 0.9% 1, 180 000 ml @ 30 mls/hr IV . Q24H [facility] Rx#:[id number] Oral 100 158 Output: Urine 1025 350 Other: Voiding Method Indwelling Catheter Toilet # Voids 1 # Bowel Movements 1 ABP, PAP, CO, CI - Last Documented Arterial Blood Pressure 139/53 Pulmonary Artery Pressure 41/15 Cardiac Output 7.1 Cardiac Index 3.6 - Exam PHYSICAL EXAMINATION: HEENT: Head is atraumatic, normocephalic. Pupils equal, round. Neck is supple. There is no elevated jugular venous pressure. HEART EXAMINATION: Heart S1, S2 normal. No murmur or gallop heard. CHEST EXAMINATION: Lungs reveal diminished air entry to bilateral bases. ABDOMEN: Soft, nontender. Bowel sounds are heard. No organomegaly noted]. EXTREMITIES:[ 2+ peripheral pulses with no evidence of peripheral edema and no calf tenderness noted]. NEUROLOGIC [patient is awake, alert and oriented -3.] . - Labs CBC & Chem 7: 01/06/17 05:54 01/06/17 05:54 Labs: Abnormal Lab Results - Last 24 Hours (Table) 01/05/17 01/05/17 01/06/17 Range/Units 16:24 20:33 03:23 RBC (4.30-5.90) m/uL Hgb (13.0-17.5) gm/dL Hct (39.0-53.0) % Lymphocytes # (1.0-4.8) k/uL Sodium (137-145) mmol/L Glucose (74-99) mg/dL POC Glucose (mg/dL) 120 H 118 H 114 H (75-99) mg/dL Calcium (8.4-10.2) mg/dL 01/06/17 01/06/17 01/06/17 Range/Units 05:32 05:54 05:54 RBC 3.07 L (4.30-5.90) m/uL Hgb 9.2 L (13.0-17.5) gm/dL Hct 28.9 L (39.0-53.0) % Lymphocytes # 0.9 L (1.0-4.8) k/uL Sodium 135 L (137-145) mmol/L Glucose 103 H (74-99) mg/dL POC Glucose (mg/dL) 116 H (75-99) mg/dL Calcium 8.3 L (8.4-10.2) mg/dL 01/06/17 Range/Units 12:03 RBC (4.30-5.90) m/uL Hgb (13.0-17.5) gm/dL Hct (39.0-53.0) % Lymphocytes # (1.0-4.8) k/uL Sodium (137-145) mmol/L Glucose (74-99) mg/dL POC Glucose (mg/dL) 101 H (75-99) mg/dL Calcium (8.4-10.2) mg/dL Assessment and Plan (1) S/P CABG (coronary artery bypass graft) Status: Acute (2) Hyperlipemia Status: Acute (3) NSTEMI (non-ST elevated myocardial infarction) Status: Acute (4) Peripheral vascular disease Status: Acute (5) Smoking Status: Acute Plan: FROM Cardiology's perspective, we will recommend to continue the patient on his current medications. Arrangements are being made for possible discharge in 24- 48 hours. DNP note has been reviewed, I agree with a documented findings and plan of care. Patient was seen and examined.
--- NOTE | 2017-01-06 16:08 | P.PN ---
Subjective 56-year-old male patient with severe triple-vessel coronary artery disease status post non-ST segment elevation myocardial infarction. The patient was taken to the operating room and he underwent four-vessel bypass surgery. I'm seeing this patient immediately after he arrived to the intensive care unit. The patient was sedated with Diprivan and he was, comfortable. He was on a mechanical ventilator and I put him on assist control mode at the rate of 12, tidal volume of 600, FiO2 was dropped down to 50% and he was PEEP of 5. He is loud gases on 100% FiO2 showed a pH of 7.42 with a pCO2 of 36 and pO2 of 236. His chest x-ray post surgery showed satisfactory position of the tubes. There was some mild to moderate central vascular congestion and patchy new left lateral basilar atelectatic change/infiltrates. The patient hemodynamically is stable. Initially his cardiac output was at 4 with an index of 2.0 with a PA pressures of 26/12. He was given 1 amp of the 50 mL of albumin which brought up his index up to 2.9. Is producing adequate amount of urine output. The output from the chest tube is none active at this point. No other significant events otherwise. He is producing adequate amount of urine output. On 01/03/2017, the patient is being seen in follow-up. The patient was kept intubated and mechanically ventilated throughout the night. I have him on a pressure control mode of ventilation at the pressure of 8, PEEP of 5, FiO2 of 60 % and rate of 12. Note that after the patient arrived from the operating room, he was actually taking well and we had dropped his FiO2 down to 60%. He acutely desaturated and had to put them back up to 100% FiO2. Overnight, he was switched a pressure control which improved to synchrony with the mechanical ventilator. He is pulling good tidal volumes at this points more than 700. His morning blood gases showed a pH of 7.4 with a pCO2 of 38 and pO2 of 63 and it was not an FiO2 of 50%. His chest x-ray showing stable postoperative findings. The patient's chest tubes and ET tube are all in good location. Scattered opacities are seen bilaterally and there is some mild cardiomegaly with mild to moderate central vascular congestion. The NG tube is in place and is putting out some minimal amount of coffee-ground material. Hemodynamically, the patient is stable. The patient is on a combination of Cardizem drip at 10 mg an hour and Cleviprex at 8 mg an hour. His most recent cardiac index is at 2.9. PA pressures are 30/18. Chest tubes are all in place and output is less than 50 mL an hour from the mediastinal and the pleural chest tubes. Hemoglobin is stable at this point. The patient remains sedated with Diprivan. The patient is calm and comfortable. On 01/04/2017 the patient is being seen in follow-up. The patient is postop day #2. Note that the patient. Weaning trials as the patient was having oxygen desaturations. This morning he still on a pressure control mode of ventilation and no changes have been on a mechanical ventilator. The patient was a 50% FiO2 and the saturation was around 97%. Note that the morning vent settings included a pressure control of 18, PEEP of 5, FiO2 of 50% and a rate of 12. Chest x-ray shows some increased interstitial markings bilaterally at the decubitus of the chest tubes are all in good location. The morning blood gases showed a pH of 7.4 with a pCO2 of 38 and pO2 of 63. It was not an FiO2 of 50%. The oxidation was not a good reflection of the patient's status knowing that the patient perplexing 97% following this blood gas. He was dynamically the patient was stable. The patient had 2 runs of V. tach late in the afternoon and for that reason the patient was loaded with amiodarone by cardiothoracic surgery. Despite this cardiac arrhythmia, the patient remained hemodynamically stable and the patient was producing adequate amount of urine output. He is off the nitroglycerin drip. He still on Cleviprex for blood pressure control. Sedated with Diprivan. Cardiac index was around 2.9. Based on all this, I thought was reasonable to give the patient is a sedation holiday and assess the patient's weaning parameters. This was done and the patient do not to have good weaning parameters with a rapid shallow breathing index of around 75. Following that, the patient was given a spelled his breathing trial with a pressure support of 5 and a PEEP of 5 and after 30 minutes blood gases showed a pH of 7.49 with a pCO2 of 30 and pO2 of 73. The patient was wide awake and alert and following commands and answering questions appropriately. No cardiac arrhythmias was noted. No tachypnea. No tachycardia. At that point decision was to extubate this patient 5 L/m nasal cannula. He did very well with this extubation and the saturation remained around 94-95%. On 01/05/2017 the patient is postop day #3. The patient is doing well. The patient has been extubated. Sitting up on a chair. He is on oxygen 3 L/m nasal cannula. Saturations are 9495%. Using scented spirometer. Hemodynamically stable. Kismet-Estrellita catheter has been removed. All of the chest tubes have been removed. The patient is tolerating some diet. No chest pain. No nausea. No vomiting. Hasn't adequate urine output. Cleviprex drip has been discontinued. The patient was able to ambulate. On 01/06/2017, the patient is being seen in follow-up. The patient is doing well. The patient got moved out of the intensive care unit. All of the chest tubes are all removed. The patient is tolerating his diet. No magistral distress. The patient on oxygen at 2 L/m nasal cannula. The chest x-ray showed some limited pulmonary vessel congestion and small better pleural effusion bilaterally. No chills no fever. Tolerating diet. No other significant events over the past 24 hours. Hemoglobin is at 9.2. Objective - Vital Signs Vital signs: Vital Signs Temp 98.1 F 01/06/17 08:00 Pulse 80 01/06/17 13:44 Resp 16 01/06/17 08:41 BP 135/79 01/06/17 11:11 Pulse Ox 98 01/06/17 11:11 Intake & Output 01/05/17 01/06/17 01/06/17 18:59 06:59 18:59 Intake Total 230 100 158 Output Total 1025 350 Balance -795 -250 158 Weight 87.8 kg 87.8 kg Intake: IV 0 Pressure Bag 0 Intake, IV Titration 230 Amount Lactated Ringers 1,000 ml 50 @ 50 mls/hr IV .Q20H [facility]IS[facility] Rx#:[id number] Sodium Chloride 0.9% 1, 180 000 ml @ 30 mls/hr IV . Q24H [facility]ISSA Rx#:[id number] Oral 100 158 Output: Urine 1025 350 Other: Voiding Method Indwelling Catheter Toilet # Voids 1 1 # Bowel Movements 1 ABP, PAP, CO, CI - Last Documented Arterial Blood Pressure 139/53 Pulmonary Artery Pressure 41/15 Cardiac Output 7.1 Cardiac Index 3.6 - Exam Awake and alert. Following simple commands. Patient is sitting up on a chair. Patient is calm and comfortable oxygen by nasal cannula. Lungs sounds are diminished bilaterally especially in lung bases. No wheezes or rhonchi. Sternum stable clean and intact. Sternum stable clean and intact.Cardiac exam revealed the PMI to be normally situated and sized. The rhythm was regular and no extrasystoles were noted during several minutes of auscultation. The first and second heart sounds were normal and physiologic splitting of the second heart sound was noted. There were no murmurs, rubs, clicks, or gallops.Abdominal exam revealed normal bowel sounds. The abdomen was soft, non- tender, and without masses, organomegaly, or appreciable enlargement of the abdominal aorta.Examination of the extremities revealed easily palpable radial, femoral and pedal pulses. There was no cyanosis, clubbing or edema. All of the surgical wounds are dry clean and intact. - Labs CBC & Chem 7: 01/06/17 05:54 01/06/17 05:54 Labs: Abnormal Lab Results - Last 24 Hours (Table) 01/05/17 01/05/17 01/06/17 Range/Units 16:24 20:33 03:23 RBC (4.30-5.90) m/uL Hgb (13.0-17.5) gm/dL Hct (39.0-53.0) % Lymphocytes # (1.0-4.8) k/uL Sodium (137-145) mmol/L Glucose (74-99) mg/dL POC Glucose (mg/dL) 120 H 118 H 114 H (75-99) mg/dL Calcium (8.4-10.2) mg/dL 01/06/17 01/06/17 01/06/17 Range/Units 05:32 05:54 05:54 RBC 3.07 L (4.30-5.90) m/uL Hgb 9.2 L (13.0-17.5) gm/dL Hct 28.9 L (39.0-53.0) % Lymphocytes # 0.9 L (1.0-4.8) k/uL Sodium 135 L (137-145) mmol/L Glucose 103 H (74-99) mg/dL POC Glucose (mg/dL) 116 H (75-99) mg/dL Calcium 8.3 L (8.4-10.2) mg/dL 01/06/17 Range/Units 12:03 RBC (4.30-5.90) m/uL Hgb (13.0-17.5) gm/dL Hct (39.0-53.0) % Lymphocytes # (1.0-4.8) k/uL Sodium (137-145) mmol/L Glucose (74-99) mg/dL POC Glucose (mg/dL) 101 H (75-99) mg/dL Calcium (8.4-10.2) mg/dL Assessment and Plan Plan: Assessment 1 multivessel coronary artery disease status post non-ST segment elevation myocardial infarctions, status post four-vessel bypass surgery patient is postop day #4 2 post operative hypoxemia probably secondary to microatelectasis. There is some increased interstitial markings bilaterally. Hemodynamically the patient is stable. The patient is on a pressure control mode of ventilation with an FiO2 of 60% and a 5 of PEEP. Patient's pulse ox is in the 92-90% range and pO2 was 63 on 60% FiO2. On 01/04/2017 the patient was weaned off the mechanical ventilated and the patient was extubated without any major difficulties. The postoperative hypoxemia that was noted was probably related to a mild component of acute lung injury alternatively microatelectasis and some increased interstitial markings probably due to fluid overload could've contributed to his hypoxemia. All these have improved and the patient is currently on 5 L of oxygen by nasal cannula saturation above 97%. Chest tubes are all in place. Hemodynamically stable. On 01/05/2017, the patient is weaned off the mechanical ventilator. The patient is currently on oxygen 3 L/m nasal cannula. Hemodynamically stable. No significant rest with difficulties. Chest x-ray from today was reviewed. All of the chest tubes have been removed. No significant respiratory difficulties for now. On 01/06/2017, the patient is doing very well. The patient is on 3 L of oxygen nasal cannula. Chest x-ray was reviewed. There is a component of mild pulmonary vessel congestion. Otherwise no other major abnormalities. In addition the patient has small bilateral pleural effusions. 3 post operative nonsustained V. tach, on amiodarone orally. No recurrent arrhythmias for now 4 postoperative anemia with hemoglobin of 9.2 Plan Continue pulmonary toileting. Incentive spirometer. No cough or pain. Oral amiodarone for postoperative ventricular tachycardia. Chest x-ray findings are stable for now. We'll follow. Patient got moved out of the intensive care unit. The patient and ventilating. Wean FiO2 as tolerated. We'll continue to follow.
[2017-01-06 16:59] LABS: Glucose,Whole Blood 94 mg/dL (75-99)
--- NOTE | 2017-01-06 17:28 | P.PN ---
Progress Note - Text CV Surgery Nursing Principal diagnosis: Coronary artery disease POD #4, status post urgent coronary artery bypass grafting 4 vessels with placement of his left internal mammary artery to his obtuse marginal 1 coronary artery, right internal mammary artery to his left anterior descending coronary artery, reverse greater saphenous vein graft placed to his obtuse marginal coronary artery #3, and a reverse greater saphenous vein graft placed to his diagonal coronary artery. Endoscopic vein harvest of his right greater saphenous vein. Intraoperative transesophageal echocardiogram and epi-aortic ultrasound. Patient is awake and alert, 2 out of 10 on the pain scale. No distress noted. He is sitting up to the bedside chair. Vital Signs: Afebrile Vital Signs - 24 hr 01/05/17 01/05/17 01/05/17 11:00 11:37 11:40 Temperature Pulse Rate 74 78 Pulse Rate [ Bilateral Dorsalis Pedis] Pulse Rate [ Bilateral Radial] Pulse Rate [ 72 Left Pulse Oximetery] Respiratory 13 13 Rate Blood Pressure Blood Pressure [Left Arm] Blood Pressure [Right Arm] O2 Sat by Pulse 94 L Oximetry 01/05/17 01/05/17 01/05/17 11:55 12:00 13:00 Temperature 98.4 F Pulse Rate 80 72 73 Pulse Rate [ Bilateral Dorsalis Pedis] Pulse Rate [ Bilateral Radial] Pulse Rate [ Left Pulse Oximetery] Respiratory 12 13 Rate Blood Pressure 121/69 121/69 Blood Pressure [Left Arm] Blood Pressure [Right Arm] O2 Sat by Pulse 100 95 Oximetry 01/05/17 01/05/17 01/05/17 14:00 15:19 20:00 Temperature 97.2 F L 98.2 F Pulse Rate 78 Pulse Rate [ 74 Bilateral Dorsalis Pedis] Pulse Rate [ Bilateral Radial] Pulse Rate [ 77 Left Pulse Oximetery] Respiratory 16 16 18 Rate Blood Pressure Blood Pressure 179/82 [Left Arm] Blood Pressure [Right Arm] O2 Sat by Pulse 100 97 97 Oximetry 01/06/17 01/06/17 01/06/17 00:00 04:00 08:00 Temperature 97.8 F 97.4 F L 98.1 F Pulse Rate Pulse Rate [ Bilateral Dorsalis Pedis] Pulse Rate [ 80 Bilateral Radial] Pulse Rate [ 69 74 Left Pulse Oximetery] Respiratory 17 18 16 Rate Blood Pressure Blood Pressure 127/62 126/60 [Left Arm] Blood Pressure 128/64 [Right Arm] O2 Sat by Pulse 97 93 L 80 L Oximetry 01/06/17 01/06/17 01/06/17 08:40 08:41 08:50 Temperature Pulse Rate 78 80 Pulse Rate [ Bilateral Dorsalis Pedis] Pulse Rate [ Bilateral Radial] Pulse Rate [ Left Pulse Oximetery] Respiratory 18 16 Rate Blood Pressure Blood Pressure [Left Arm] Blood Pressure [Right Arm] O2 Sat by Pulse 94 L Oximetry Labs: Short CBC 01/06/17 Range/Units 05:54 WBC 5.3 (3.8-10.6) k/uL Hgb 9.2 L (13.0-17.5) gm/dL Hct 28.9 L (39.0-53.0) % Plt Count 165 D (150-450) k/uL Neutrophils # 3.8 (1.3-7.7) k/uL BMP 01/06/17 05:54 Sodium 135 L Potassium 3.9 Chloride 101 Carbon Dioxide 29 BUN 14 Creatinine 0.69 Glucose 103 H Calcium 8.3 L Microbiology 12/30/16 14:13 Nasal Swab Nasal Screen MRSA/MSSA ([place]) - Final 12/30/16 14:30 Urine,Voided Urine Culture - Final Lungs: Essentially clear throughout, diminished bilateral bases. Respirations are symmetrical and unlabored. O2 sat: 94% on 4 L nasal cannula. O2 sats on room air were in the mid 80s. I/S: 1000 mL, reviewed with the patient important of using his incentive spirometry every hour while awake. Patient did give a good return demonstration on his incentive spirometry. Heart: S1S2, regular rhythm and rate, negative for S3, gallop or murmur. Remote telemetry showing normal sinus rhythm heart rate 79. Sternum stable, chest incision clean with silverlon dressing clean and dry. Abdomen: Soft, Positive bowel sounds present in all 4 quadrants, CBGs: 100 -120 mg/dL last 24 hours. U/O: Adequate 24 hr Total: Intake & Output 01/04/17 01/05/17 01/06/17 01/07/17 06:59 06:59 06:59 06:59 Intake Total 2666.969 1731.367 330 40 Output Total 1710 2653 1375 Balance 956.969 -921.633 -1045 40 Weight 89.7 kg 90.3 kg 87.8 kg 87.8 kg Active Medications Hydrocodone Bitart/Acetaminophen ([place] 5-325) 2 each PO Q4HR PRN PRN Reason: Severe Pain Last Admin: 01/06/17 08:35 Dose: 2 each Hydrocodone Bitart/Acetaminophen ([place] 5-325) 1 each PO Q4HR PRN PRN Reason: Moderate Pain Albuterol/Ipratropium (Duoneb 0.5 Mg-3 Mg/3 Ml Soln) 3 ml INHALATION RT-Q2H PRN PRN Reason: Shortness Of Breath Or Wheezing Last Admin: 01/06/17 08:37 Dose: 3 ml Amiodarone HCl (Cordarone) 400 mg PO BID PENDING SALE TO [facility] Last Admin: 01/06/17 08:42 Dose: 400 mg Aspirin (Aspirin) 325 mg PO DAILY PENDING SALE TO [facility] Last Admin: 01/06/17 08:41 Dose: 325 mg Atorvastatin Calcium (Lipitor) 40 mg PO HS PENDING SALE TO [facility] Last Admin: 01/05/17 20:28 Dose: 40 mg Bisacodyl (Dulcolax) 10 mg RECTAL DAILY PRN PRN Reason: Constipation Clopidogrel Bisulfate (Plavix) 75 mg PO DAILY PENDING SALE TO [facility] Last Admin: 01/06/17 08:41 Dose: 75 mg Heparin Sodium (Porcine) (Heparin) 5,000 unit SQ Q8HR PENDING SALE TO [facility] Last Admin: 01/06/17 08:41 Dose: 5,000 unit Insulin Human Lispro (Humalog) 0 unit SQ [id number] PENDING SALE TO [facility] PRN Reason: Protocol Last Admin: 01/06/17 06:34 Dose: Not Given Magnesium Hydroxide (Milk Of Magnesia) 2,400 mg PO BID PRN PRN Reason: Constipation Metoclopramide HCl (Reglan) 10 mg IVP Q4H PRN PRN Reason: Nausea And Vomiting Metoprolol Tartrate (Lopressor) 25 mg PO BID PENDING SALE TO [facility] Last Admin: 01/06/17 08:41 Dose: 25 mg Miscellaneous Information (Magnesium Per Protocol) 1 each MISCELLANE DAILY PRN ; Protocol PRN Reason: Per Protocol Miscellaneous Information (Phosphorus Per Protocol) 1 each MISCELLANE DAILY PRN ; Protocol PRN Reason: Per Protocol Miscellaneous Information (Potassium Per Protocol) 1 each MISCELLANE DAILY PRN ; Protocol PRN Reason: Per Protocol Miscellaneous Information (Potassium Per Protocol) 1 each MISCELLANE DAILY PRN ; Protocol PRN Reason: Per Protocol Ondansetron HCl (Zofran) 4 mg IVP Q6HR PRN PRN Reason: Nausea And Vomiting Pantoprazole Sodium (Protonix) 40 mg PO DAILY PENDING SALE TO [facility] Last Admin: 01/06/17 08:41 Dose: 40 mg Senna/Docusate Sodium (Senokot-S) 2 each PO HS PENDING SALE TO [facility] Last Admin: 01/05/17 20:31 Dose: 2 each Plan: 1. Continue aspirin, statin, beta deisy. 2. Continue to encourage use of his incentive spirometry. Pulmonary management and recommendations per Dr. Hoff. 3. GI and DVT prophylaxis in place. 4. Blood sugar management per Dr. Carver's recommendations. 5. CBC, CMP, in a.m. 6. Increase activity as tolerated, physical therapy in place for assistance with rehabilitation. Cardiac rehab following. 7. Patient will have his first postop shower today. 8. Lasix 20 mg IV 1 today, replace potassium per protocol. 9. Further recommendations as patient progresses. Discharge planning in place.
--- NOTE | 2017-01-06 17:32 | P.PN ---
Subjective This is a 56-year-old gentleman who is postop day 2 from a quadruple coronary bypass surgery. Patient is seen in the intensive care unit is status post extubation at this time. Patient continues to have chest tubes at this time. Patient's convocation's included postoperative sustained VT currently maintained on amiodarone drip. Patient is awake is answering questions appropriately no further abnormalities were reported. 01/05/17 No new overnight events No abnormalities on telemetry reported. 01/06/17 No new overnight events Currently on 5 l o2 Has a minimal cough with no significant sputum production Objective - Vital Signs Vital signs: Vital Signs Temp 98.5 F 01/06/17 16:00 Pulse 70 01/06/17 16:00 Resp 16 01/06/17 16:00 BP 127/57 01/06/17 16:00 Pulse Ox 100 01/06/17 16:00 Intake & Output 01/05/17 01/06/17 01/06/17 18:59 06:59 18:59 Intake Total 230 100 158 Output Total 1025 350 Balance -795 -250 158 Weight 87.8 kg 87.8 kg Intake: IV 0 Pressure Bag 0 Intake, IV Titration 230 Amount Lactated Ringers 1,000 ml 50 @ 50 mls/hr IV .Q20H [facility]ISSA Rx#:[id number] Sodium Chloride 0.9% 1, 180 000 ml @ 30 mls/hr IV . Q24H [facility]ISSA Rx#:[id number] Oral 100 158 Output: Urine 1025 350 Other: Voiding Method Indwelling Catheter Toilet # Voids 1 1 # Bowel Movements 1 ABP, PAP, CO, CI - Last Documented Arterial Blood Pressure 139/53 Pulmonary Artery Pressure 41/15 Cardiac Output 7.1 Cardiac Index 3.6 - Exam Gen. appearance awake alert is answering questions appropriately Lungs diminished breath sounds bilaterally , crackles appreciated heart S1-S2 heard no murmurs appreciated Abdomen is soft nontender no organomegaly. Lower extremities no significant edema noted. Neuro no focal motor or sensory deficits noted. - Labs CBC & Chem 7: 01/06/17 05:54 01/06/17 05:54 Labs: Abnormal Lab Results - Last 24 Hours (Table) 01/05/17 01/06/17 01/06/17 Range/Units 20:33 03:23 05:32 RBC (4.30-5.90) m/uL Hgb (13.0-17.5) gm/dL Hct (39.0-53.0) % Lymphocytes # (1.0-4.8) k/uL Sodium (137-145) mmol/L Glucose (74-99) mg/dL POC Glucose (mg/dL) 118 H 114 H 116 H (75-99) mg/dL Calcium (8.4-10.2) mg/dL 01/06/17 01/06/17 01/06/17 Range/Units 05:54 05:54 12:03 RBC 3.07 L (4.30-5.90) m/uL Hgb 9.2 L (13.0-17.5) gm/dL Hct 28.9 L (39.0-53.0) % Lymphocytes # 0.9 L (1.0-4.8) k/uL Sodium 135 L (137-145) mmol/L Glucose 103 H (74-99) mg/dL POC Glucose (mg/dL) 101 H (75-99) mg/dL Calcium 8.3 L (8.4-10.2) mg/dL Assessment and Plan Plan: #1 CAD status post CABG 4 postop day 4 #2 acute hypoxic respiratory failure as expected from the recent surgery #3 sustained VT currently on amiodarone drip no further episodes noted #4 postoperative anemia as expected from the recent surgery #5 diabetes mellitus currently maintained a 1.5 units of insulin per hour #6 history of hypertension Plan recommend an additional dose of lasix Strict I/o IS encourage activity Continue insulin sliding scale.
[2017-01-06 18:38] LABS: Anion Gap 9 mmol/L; Blood Urea Nitrogen 17 mg/dL (9-20); Calcium 8.3 mg/dL (8.4-10.2); Carbon Dioxide 28 mmol/L (22-30); Chloride 98 mmol/L (98-107); Glucose 107 mg/dL (74-99); Non-African American GFR(MDRD) >60 (>60 ml/min/1.73 sqM); Potassium 3.6 mmol/L (3.5-5.1); Sodium 135 mmol/L (137-145)
[2017-01-06] MEDS ORDERED: Potassium Replacement Protocol 1 EACH MISC MISCELLANE PRN (19:40)
[2017-01-06] MEDS ORDERED: POTASSIUM CHLORIDE ER 20 MEQ TAB.ER PO SCH (20:00)
[2017-01-06] MEDS: ATORVASTATIN 40 MG TAB PO SCH (20:28)
[2017-01-06] MEDS: SENNOSIDES-DOCUSATE SODIUM 1 EACH TAB PO SCH (20:29)
[2017-01-06 21:23] LABS: Glucose,Whole Blood 128 mg/dL (75-99)
[2017-01-06] MEDS: POTASSIUM CHLORIDE ER 20 MEQ TAB.ER PO SCH (23:30)
[2017-01-07] MEDS: POTASSIUM CHLORIDE ER 20 MEQ TAB.ER PO SCH (00:29)
[2017-01-07] MEDS: HYDROcodone/APAP 5-325MG 1 EACH TAB PO PRN ×3 (00:33→12:40)
[2017-01-07 01:59] LABS: Glucose,Whole Blood 104 mg/dL (75-99)
[2017-01-07] MEDS: INSULIN LISPRO (humaLOG) 300 UNIT/3 ML VIAL SQ SCH ×3 (04:15→11:56)
[2017-01-07 06:49] LABS: Glucose,Whole Blood 91 mg/dL (75-99)
[2017-01-07 07:13] LABS: Anion Gap 7 mmol/L; Blood Urea Nitrogen 18 mg/dL (9-20); Calcium 8.5 mg/dL (8.4-10.2); Carbon Dioxide 30 mmol/L (22-30); Chloride 99 mmol/L (98-107); Glucose 93 mg/dL (74-99); Magnesium 2.2 mg/dL (1.6-2.3); Non-African American GFR(MDRD) >60 (>60 ml/min/1.73 sqM); Sodium 136 mmol/L (137-145)
--- NOTE | 2017-01-07 07:21 | XR ---
EXAMINATION TYPE: XR chest 1V portable DATE OF EXAM: 01/07/2017 7:05 AM CLINICAL HISTORY: Difficulty breathing progress study. Post open cardiac surgery. TECHNIQUE: Single AP portable upright view of the chest is obtained. COMPARISON: Chest x-ray from one day earlier FINDINGS: There is cardiomegaly redemonstrated. Post CABG changes with mediastinal clips and sternal wires is again seen. There is chronic parenchymal change with suspected mild central vascular conges tion and stable small bilateral pleural effusions. An azygos lobe/fissure is redemonstrated. No new f ocal airspace opacity or pneumothorax is seen bilaterally. Visualized osseous structures are intact. Nonvisualization of epicardial pacer wires is consistent with interval removal. IMPRESSION: Chronic parenchymal and post CABG changes with perhaps mild central vascular congestion a nd small bilateral pleural effusions all redemonstrated. No new infiltrate is seen.
[2017-01-07] MEDS: HEPARIN SODIUM,PORCINE 5,000 UNIT/ML 1 ML VIAL SQ SCH (08:14)
[2017-01-07] MEDS: ASPIRIN 325 MG TAB PO SCH (08:15)
[2017-01-07] MEDS: CLOPIDOGREL 75 MG TAB PO SCH (08:16)
[2017-01-07] MEDS: METOPROLOL TARTRATE 25 MG TAB PO SCH (08:16)
[2017-01-07] MEDS: AMIODARONE 200 MG TAB PO SCH (08:16)
[2017-01-07] MEDS: PANTOPRAZOLE 40 MG TABLET PO SCH (08:17)
--- NOTE | 2017-01-07 11:07 | P.PN ---
Subjective Principal diagnosis: Status post CABG This is a 56-year-old gentleman who is status post coronary artery bypass grafting surgery. He was seen and examined on the telemetry unit today, overall doing very well. Ambulated in the hallway this morning with physical therapy, tolerated well. Blood Pressure 130/60 with a heart rate in the 70s. Objective - Vital Signs Vital signs: Vital Signs Temp 98.3 F 01/07/17 08:00 Pulse 86 01/07/17 08:00 Resp 16 01/07/17 08:00 BP 142/67 01/07/17 08:00 Pulse Ox 92 L 01/07/17 08:00 Intake & Output 01/06/17 01/07/17 01/07/17 18:59 06:59 18:59 Intake Total 418 220 Output Total 800 Balance -382 220 Weight 87.8 kg 85 kg Intake: IV 20 Invasive Line 6 10 Invasive Line 7 10 Oral 418 200 Output: Urine 800 Other: Voiding Method Toilet # Voids 1 1 # Bowel Movements 1 ABP, PAP, CO, CI - Last Documented Arterial Blood Pressure 139/53 Pulmonary Artery Pressure 41/15 Cardiac Output 7.1 Cardiac Index 3.6 - Exam PHYSICAL EXAMINATION: HEENT: Head is atraumatic, normocephalic. Pupils equal, round. Neck is supple. There is no elevated jugular venous pressure. HEART EXAMINATION: Heart S1, S2 normal. No murmur or gallop heard. CHEST EXAMINATION: Lungs reveal diminished air entry to bilateral bases. ABDOMEN: Soft, nontender. Bowel sounds are heard. No organomegaly noted]. EXTREMITIES:[ 2+ peripheral pulses with no evidence of peripheral edema and no calf tenderness noted]. NEUROLOGIC [patient is awake, alert and oriented -3.] . - Labs CBC & Chem 7: 01/06/17 05:54 01/07/17 06:36 Labs: Abnormal Lab Results - Last 24 Hours (Table) 01/06/17 01/06/17 01/06/17 Range/Units 12:03 18:15 21:21 Sodium 135 L (137-145) mmol/L Glucose 107 H (74-99) mg/dL POC Glucose (mg/dL) 101 H 128 H (75-99) mg/dL Calcium 8.3 L (8.4-10.2) mg/dL 04/29/17 04/29/17 Range/Units 01:56 06:36 Sodium 136 L (137-145) mmol/L Glucose (74-99) mg/dL POC Glucose (mg/dL) 104 H (75-99) mg/dL Calcium (8.4-10.2) mg/dL Assessment and Plan (1) S/P CABG (coronary artery bypass graft) Status: Acute (2) Hyperlipemia Status: Acute (3) NSTEMI (non-ST elevated myocardial infarction) Status: Acute (4) Peripheral vascular disease Status: Acute (5) Smoking Status: Acute Plan: FROM Cardiology's perspective, we will recommend to continue the patient on his current medications. Arrangements are being made for possible discharge in today or tomorrow. DNP note has been reviewed, I agree with a documented findings and plan of care. Patient was seen and examined.
[2017-01-07] MEDS: IPRATROPIUM-ALBUTEROL 3 ML NEB INHALATION PRN (11:24)
[2017-01-07 11:34] LABS: Glucose,Whole Blood 102 mg/dL (75-99)
--- NOTE | 2017-01-07 11:38 | P.PN ---
Progress Note - Text CV Surgery Nursing POD: #5, coronary artery bypass grafting 4 with placement of the left internal mammary artery to his obtuse marginal, right internal mammary artery to his left anterior descending coronary artery and reverse saphenous vein graft to the third obtuse marginal branch and a reverse greater saphenous vein graft to his diagonal branch, endoscopic vein harvesting of his right greater saphenous vein, intraoperative transesophageal echocardiogram and epi-aortic ultrasonography Patient awake and alert, no distress noted, no specific complaints. Vital Signs: Afebrile, T-max 98.5F Vital Signs - 24 hr 01/06/17 01/06/17 01/06/17 13:24 13:44 16:00 Temperature 98.5 F Pulse Rate 76 80 Pulse Rate [ 70 Bilateral Dorsalis Pedis] Pulse Rate [ Bilateral Radial] Pulse Rate [ Left Pulse Oximetery] Respiratory 16 Rate Blood Pressure [Left Arm] Blood Pressure 127/57 [Right Arm] O2 Sat by Pulse 100 Oximetry 01/06/17 01/06/17 01/06/17 20:00 20:03 20:14 Temperature 98.2 F Pulse Rate 80 80 Pulse Rate [ Bilateral Dorsalis Pedis] Pulse Rate [ Bilateral Radial] Pulse Rate [ 83 Left Pulse Oximetery] Respiratory 18 Rate Blood Pressure 133/67 [Left Arm] Blood Pressure [Right Arm] O2 Sat by Pulse 94 L Oximetry 01/07/17 01/07/17 01/07/17 00:00 04:00 08:00 Temperature 98.0 F 97.8 F 98.3 F Pulse Rate Pulse Rate [ Bilateral Dorsalis Pedis] Pulse Rate [ 86 Bilateral Radial] Pulse Rate [ 74 74 Left Pulse Oximetery] Respiratory 18 18 16 Rate Blood Pressure 130/62 129/64 [Left Arm] Blood Pressure 142/67 [Right Arm] O2 Sat by Pulse 96 95 92 L Oximetry 01/07/17 11:24 Temperature Pulse Rate 64 Pulse Rate [ Bilateral Dorsalis Pedis] Pulse Rate [ Bilateral Radial] Pulse Rate [ Left Pulse Oximetery] Respiratory Rate Blood Pressure [Left Arm] Blood Pressure [Right Arm] O2 Sat by Pulse Oximetry Labs: [facility] 01/06/17 01/06/17 01/07/17 18:15 22:23 02:35 Sodium 135 L Potassium 3.6 3.5 3.8 Chloride 98 Carbon Dioxide 28 BUN 17 Creatinine 0.71 Glucose 107 H Calcium 8.3 L 01/07/17 06:36 Sodium 136 L Potassium 4.0 Chloride 99 Carbon Dioxide 30 BUN 18 Creatinine 0.74 Glucose 93 Calcium 8.5 Lungs: respirations are even and nonlabored, rest sounds slightly diminished in the right base O2 sat: 92% on 1 L of oxygen delivered via nasal cannula I/S: 1500 mL Heart: S1S2, regular rate and rhythm portable telemetry shows a normal sinus rhythm with a rate of 72 Sternum stable, chest incision clean with silverlon dressing clean and dry. Right leg incision slightly ecchymotic, skin edges are sealed Abdomen: Soft, Positive bowel sounds present in all 4 quadrants. CBGs: 91-128 mg/dL U/O: patient is voiding adequate amounts of urine Intake & Output 01/05/17 01/06/17 01/07/17 01/08/17 06:59 06:59 06:59 06:59 Intake Total 1731.367 330 418 220 Output Total 2653 1375 800 Balance -921.633 -1045 -382 220 Weight 90.3 kg 87.8 kg 85 kg Active Medications Hydrocodone Bitart/Acetaminophen ([place] 5-325) 2 each PO Q4HR PRN PRN Reason: Severe Pain Last Admin: 01/07/17 08:11 Dose: 2 each Hydrocodone Bitart/Acetaminophen ([place] 5-325) 1 each PO Q4HR PRN PRN Reason: Moderate Pain Last Admin: 01/06/17 16:31 Dose: 1 each Albuterol/Ipratropium (Duoneb 0.5 Mg-3 Mg/3 Ml Soln) 3 ml INHALATION RT-Q2H PRN PRN Reason: Shortness Of Breath Or Wheezing Last Admin: 01/07/17 11:24 Dose: 3 ml Amiodarone HCl (Cordarone) 400 mg PO BID [facility] Last Admin: 01/07/17 08:16 Dose: 400 mg Aspirin (Aspirin) 325 mg PO DAILY [facility] Last Admin: 01/07/17 08:15 Dose: 325 mg Atorvastatin Calcium (Lipitor) 40 mg PO HS [facility] Last Admin: 01/06/17 20:28 Dose: 40 mg Bisacodyl (Dulcolax) 10 mg RECTAL DAILY PRN PRN Reason: Constipation Clopidogrel Bisulfate (Plavix) 75 mg PO DAILY [facility] Last Admin: 01/07/17 08:16 Dose: 75 mg Heparin Sodium (Porcine) (Heparin) 5,000 unit SQ Q8HR [facility] Last Admin: 01/07/17 08:14 Dose: 5,000 unit Insulin Human Lispro (Humalog) 0 unit SQ [id number] MARISSA PRN Reason: Protocol Last Admin: 01/07/17 06:50 Dose: Not Given Magnesium Hydroxide (Milk Of Magnesia) 2,400 mg PO BID PRN PRN Reason: Constipation Metoclopramide HCl (Reglan) 10 mg IVP Q4H PRN PRN Reason: Nausea And Vomiting Metoprolol Tartrate (Lopressor) 25 mg PO BID [facility] Last Admin: 01/07/17 08:16 Dose: 25 mg Miscellaneous Information (Magnesium Per Protocol) 1 each MISCELLANE DAILY PRN ; Protocol PRN Reason: Per Protocol Miscellaneous Information (Phosphorus Per Protocol) 1 each MISCELLANE DAILY PRN ; Protocol PRN Reason: Per Protocol Miscellaneous Information (Potassium Per Protocol) 1 each MISCELLANE DAILY PRN ; Protocol PRN Reason: Per Protocol Miscellaneous Information (Potassium Per Protocol) 1 each MISCELLANE DAILY PRN ; Protocol PRN Reason: Per Protocol Miscellaneous Information (Potassium Per Protocol) 1 each MISCELLANE DAILY PRN ; Protocol PRN Reason: Per Protocol Ondansetron HCl (Zofran) 4 mg IVP Q6HR PRN PRN Reason: Nausea And Vomiting Pantoprazole Sodium (Protonix) 40 mg PO DAILY [facility] Last Admin: 01/07/17 08:17 Dose: 40 mg Senna/Docusate Sodium (Senokot-S) 2 each PO HS [facility] Last Admin: 01/06/17 20:29 Dose: 2 each plan: Continue aggressive pulmonary toilet utilizing incentive spirometry, coughing and deep breathing and inhalation treatments per respiratory therapy department pulmonary management per Dr. Hoff Increase activity as tolerated good Progress Home soon
--- NOTE | 2017-01-07 12:33 | P.PN ---
Subjective 56-year-old male patient with severe triple-vessel coronary artery disease status post non-ST segment elevation myocardial infarction. The patient was taken to the operating room and he underwent four-vessel bypass surgery. I'm seeing this patient immediately after he arrived to the intensive care unit. The patient was sedated with Diprivan and he was, comfortable. He was on a mechanical ventilator and I put him on assist control mode at the rate of 12, tidal volume of 600, FiO2 was dropped down to 50% and he was PEEP of 5. He is loud gases on 100% FiO2 showed a pH of 7.42 with a pCO2 of 36 and pO2 of 236. His chest x-ray post surgery showed satisfactory position of the tubes. There was some mild to moderate central vascular congestion and patchy new left lateral basilar atelectatic change/infiltrates. The patient hemodynamically is stable. Initially his cardiac output was at 4 with an index of 2.0 with a PA pressures of 26/12. He was given 1 amp of the 50 mL of albumin which brought up his index up to 2.9. Is producing adequate amount of urine output. The output from the chest tube is none active at this point. No other significant events otherwise. He is producing adequate amount of urine output. On 01/03/2017, the patient is being seen in follow-up. The patient was kept intubated and mechanically ventilated throughout the night. I have him on a pressure control mode of ventilation at the pressure of 8, PEEP of 5, FiO2 of 60 % and rate of 12. Note that after the patient arrived from the operating room, he was actually taking well and we had dropped his FiO2 down to 60%. He acutely desaturated and had to put them back up to 100% FiO2. Overnight, he was switched a pressure control which improved to synchrony with the mechanical ventilator. He is pulling good tidal volumes at this points more than 700. His morning blood gases showed a pH of 7.4 with a pCO2 of 38 and pO2 of 63 and it was not an FiO2 of 50%. His chest x-ray showing stable postoperative findings. The patient's chest tubes and ET tube are all in good location. Scattered opacities are seen bilaterally and there is some mild cardiomegaly with mild to moderate central vascular congestion. The NG tube is in place and is putting out some minimal amount of coffee-ground material. Hemodynamically, the patient is stable. The patient is on a combination of Cardizem drip at 10 mg an hour and Cleviprex at 8 mg an hour. His most recent cardiac index is at 2.9. PA pressures are 30/18. Chest tubes are all in place and output is less than 50 mL an hour from the mediastinal and the pleural chest tubes. Hemoglobin is stable at this point. The patient remains sedated with Diprivan. The patient is calm and comfortable. On 01/04/2017 the patient is being seen in follow-up. The patient is postop day #2. Note that the patient. Weaning trials as the patient was having oxygen desaturations. This morning he still on a pressure control mode of ventilation and no changes have been on a mechanical ventilator. The patient was a 50% FiO2 and the saturation was around 97%. Note that the morning vent settings included a pressure control of 18, PEEP of 5, FiO2 of 50% and a rate of 12. Chest x-ray shows some increased interstitial markings bilaterally at the decubitus of the chest tubes are all in good location. The morning blood gases showed a pH of 7.4 with a pCO2 of 38 and pO2 of 63. It was not an FiO2 of 50%. The oxidation was not a good reflection of the patient's status knowing that the patient perplexing 97% following this blood gas. He was dynamically the patient was stable. The patient had 2 runs of V. tach late in the afternoon and for that reason the patient was loaded with amiodarone by cardiothoracic surgery. Despite this cardiac arrhythmia, the patient remained hemodynamically stable and the patient was producing adequate amount of urine output. He is off the nitroglycerin drip. He still on Cleviprex for blood pressure control. Sedated with Diprivan. Cardiac index was around 2.9. Based on all this, I thought was reasonable to give the patient is a sedation holiday and assess the patient's weaning parameters. This was done and the patient do not to have good weaning parameters with a rapid shallow breathing index of around 75. Following that, the patient was given a spelled his breathing trial with a pressure support of 5 and a PEEP of 5 and after 30 minutes blood gases showed a pH of 7.49 with a pCO2 of 30 and pO2 of 73. The patient was wide awake and alert and following commands and answering questions appropriately. No cardiac arrhythmias was noted. No tachypnea. No tachycardia. At that point decision was to extubate this patient 5 L/m nasal cannula. He did very well with this extubation and the saturation remained around 94-95%. On 01/05/2017 the patient is postop day #3. The patient is doing well. The patient has been extubated. Sitting up on a chair. He is on oxygen 3 L/m nasal cannula. Saturations are 9495%. Using scented spirometer. Hemodynamically stable. [place] catheter has been removed. All of the chest tubes have been removed. The patient is tolerating some diet. No chest pain. No nausea. No vomiting. Hasn't adequate urine output. Cleviprex drip has been discontinued. The patient was able to ambulate. On 01/06/2017, the patient is being seen in follow-up. The patient is doing well. The patient got moved out of the intensive care unit. All of the chest tubes are all removed. The patient is tolerating his diet. No magistral distress. The patient on oxygen at 2 L/m nasal cannula. The chest x-ray showed some limited pulmonary vessel congestion and small better pleural effusion bilaterally. No chills no fever. Tolerating diet. No other significant events over the past 24 hours. Hemoglobin is at 9.2. On 01/07/2017, the patient is stable. He was weaned down to 1 L of oxygen nasal cannula. Chest x-ray from today shows chronic parenchymal changes and post bypass changes in addition to some mild central vascular congestion and small bilateral pleural effusion. No pneumothorax. No infiltration. No other abnormalities noted. The patient is afebrile hemodynamically stable. No cardiac arrhythmias has been reported or noted. He is postop day #5. Is using incentive spirometer. Blood pressure in the rest of the vitals are stable Objective - Vital Signs Vital signs: Vital Signs Temp 98.3 F 01/07/17 08:00 Pulse 72 01/07/17 11:33 Resp 16 01/07/17 08:00 BP 142/67 01/07/17 08:00 Pulse Ox 92 L 01/07/17 08:00 Intake & Output 01/06/17 01/07/17 01/07/17 18:59 06:59 18:59 Intake Total 418 220 Output Total 800 Balance -382 220 Weight 87.8 kg 85 kg Intake: IV 20 Invasive Line 6 10 Invasive Line 7 10 Oral 418 200 Output: Urine 800 Other: Voiding Method Toilet # Voids 1 1 # Bowel Movements 1 ABP, PAP, CO, CI - Last Documented Arterial Blood Pressure 139/53 Pulmonary Artery Pressure 41/15 Cardiac Output 7.1 Cardiac Index 3.6 - Exam Awake and alert. Following simple commands. Patient is sitting up on a chair. Patient is calm and comfortable oxygen by nasal cannula. Lungs sounds are diminished bilaterally especially in lung bases. No wheezes or rhonchi. Sternum stable clean and intact. Sternum stable clean and intact.Cardiac exam revealed the PMI to be normally situated and sized. The rhythm was regular and no extrasystoles were noted during several minutes of auscultation. The first and second heart sounds were normal and physiologic splitting of the second heart sound was noted. There were no murmurs, rubs, clicks, or gallops.Abdominal exam revealed normal bowel sounds. The abdomen was soft, non- tender, and without masses, organomegaly, or appreciable enlargement of the abdominal aorta.Examination of the extremities revealed easily palpable radial, femoral and pedal pulses. There was no cyanosis, clubbing or edema. All of the surgical wounds are dry clean and intact. - Labs CBC & Chem 7: 01/06/17 05:54 01/07/17 06:36 Labs: Abnormal Lab Results - Last 24 Hours (Table) 01/06/17 01/06/17 01/07/17 Range/Units 18:15 21:21 01:56 Sodium 135 L (137-145) mmol/L Glucose 107 H (74-99) mg/dL POC Glucose (mg/dL) 128 H 104 H (75-99) mg/dL Calcium 8.3 L (8.4-10.2) mg/dL 01/07/17 01/07/17 Range/Units 06:36 11:33 Sodium 136 L (137-145) mmol/L Glucose (74-99) mg/dL POC Glucose (mg/dL) 102 H (75-99) mg/dL Calcium (8.4-10.2) mg/dL Assessment and Plan Plan: Assessment 1 multivessel coronary artery disease status post non-ST segment elevation myocardial infarctions, status post four-vessel bypass surgery patient is postop day #5 2 post operative hypoxemia probably secondary to microatelectasis. There is some increased interstitial markings bilaterally. Hemodynamically the patient is stable. The patient is on a pressure control mode of ventilation with an FiO2 of 60% and a 5 of PEEP. Patient's pulse ox is in the 92-90% range and pO2 was 63 on 60% FiO2. On 01/04/2017 the patient was weaned off the mechanical ventilated and the patient was extubated without any major difficulties. The postoperative hypoxemia that was noted was probably related to a mild component of acute lung injury alternatively microatelectasis and some increased interstitial markings probably due to fluid overload could've contributed to his hypoxemia. All these have improved and the patient is currently on 5 L of oxygen by nasal cannula saturation above 97%. Chest tubes are all in place. Hemodynamically stable. On 01/05/2017, the patient is weaned off the mechanical ventilator. The patient is currently on oxygen 3 L/m nasal cannula. Hemodynamically stable. No significant rest with difficulties. Chest x-ray from today was reviewed. All of the chest tubes have been removed. No significant respiratory difficulties for now. On 01/06/2017, the patient is doing very well. The patient is on 3 L of oxygen nasal cannula. Chest x-ray was reviewed. There is a component of mild pulmonary vessel congestion. Otherwise no other major abnormalities. In addition the patient has small bilateral pleural effusions. On 01/07/2017, chest x-ray findings are stable and the patient has been weaned down to 1 L of oxygen nasal cannula. He is ambulating. No other active respiratory issues and the patient continues to use incentive spirometer. 3 post operative nonsustained V. tach, on amiodarone orally. No recurrent arrhythmias for now 4 postoperative anemia with hemoglobin of 9.2 Plan Continue pulmonary toileting. Incentive spirometer. Discontinue the oxygen as the patient's saturation remains above 92%. Patient is doing well. We will continue to follow
[2017-01-07 14:00] VITALS: RESP 18
[2017-01-07 16:44] VITALS: BP 137/64; PULSE 79; TEMP 98.6
--- NOTE | 2017-01-12 12:10 | P.DS ---
Providers Date of admission: 12/30/16 09:08 Attending physician: Evelio Wise Consults: 12/30/16 11:51 Consult Anesthesia Routine Consulting Provider: Anesthesia,Services Consult Reason/Comments: Cardiac Surgery Pre-Op Consult Physician Routine Consulting Provider: Javi Ewing Consult Reason/Comments: preop CABG Do you want consulting provider notified?: Yes Consult Physician Routine Consulting Provider: Liu Carver Consult Reason/Comments: medical managment Do you want consulting provider notified?: Yes 12/30/16 11:53 Consult Physician Routine Consulting Provider: Javi Ewing Consult Reason/Comments: Pulmonary management Do you want consulting provider notified?: Yes 12/30/16 11:55 Consult Physician Urgent Consulting Provider: Narayan Moulton Consult Reason/Comments: Triple Vessel Disease Do you want consulting provider notified?: Already Contacted Primary care physician: Stated None Hospital Course: FINAL DIAGNOSIS: 1.[Symptomatic multivessel coronary artery disease] 2.[Non-ST elevated myocardial infarction this admission] 3.[Hyperlipidemia] 4.[Nicotine dependence] 5.[Postoperative hypoxemia probably secondary to Microatelectasis] PRINCIPAL PROCEDURE: 1.[Left heart catheterization with left ventriculography] 2.[Urgent coronary artery bypass grafting 4 vessels with placement of his left internal mammary artery to his obtuse marginal coronary artery 1, his right internal mammary artery placed to his left anterior descending coronary artery, a reverse greater saphenous vein graft placed to his obtuse marginal 3 coronary artery, and a reverse greater saphenous vein graft placed to his diagonal coronary artery.] 3.[Endoscopic vein harvest, right greater saphenous vein.] 4.[Intraoperative transesophageal echocardiogram and epi-aortic ultrasound.] HISTORY OF PRESENT ILLNESS: [This is a 56-year-old gentleman who does not follow regularly with a primary care physician. This is currently support on the patient presented to the emergency department here at [facility] with complaints of chest discomfort. His chest discomfort/ tightness which did radiate down his left arm. The chest discomfort started when he was walking up some stairs while he was at work. The patient does not have a significant can't medical history. His chest pain was not associated with any nausea, vomiting or shortness of breath. Due to the above-mentioned symptoms the patient had a 12-lead EKG which demonstrated normal sinus rhythm with mild ST changes in lead 1 and aVL. He also had troponins drawn which were abnormal and were as high as 0.507 ng/ml. Due to the abnormal findings and his presenting symptoms the patient was evaluated by Dr. Rees from [facility].] HOSPITAL COURSE:[The patient was admitted to the hospital and after obtaining consent underwent an urgent cardiac catheterization which demonstrated an 80% proximal lesion to his left anterior descending coronary artery, and 80-90% stenosis to his mid left anterior descending coronary artery, a 70% stenosis to his diagonal coronary artery, a 90% stenosis to his dominant circumflex coronary artery, an 80% stenosis to his obtuse marginal branch, and a 90% stenosis to his midportion of his right coronary artery. Left ventriculography was completed during heart catheterization which demonstrated a normal sized cardiac silhouette with mild hypokinesis of the inferior apical segment with an ejection fraction of 50-55%. The patient also had a 2-D echocardiogram completed which showed him to have trace mitral regurgitation, trace tricuspid regurgitation, and overall left ventricular systolic function to be normal with an ejection fraction between 55 and 60%. Due to the patient's presenting symptoms, positive troponins and his results from his cardiac catheterization a consult was placed for Dr. Wise from cardiothoracic surgery. The above- mentioned studies were reviewed with the patient by Dr. Rees and by Dr. Wise and an urgent coronary artery bypass grafting surgery was recommended. After obtaining consent the patient underwent an urgent coronary artery bypass grafting surgery 4 vessels with placement of his left internal mammary artery to his obtuse marginal coronary artery #1, his right internal mammary artery placed to his left anterior descending coronary artery, a reverse greater saphenous vein graft placed to his obtuse marginal coronary artery #3 and a reverse greater saphenous vein graft placed to his diagonal coronary artery. The patient was transferred to the cardiovascular intensive care unit where he was recovered, monitored hemodynamically. Postoperatively the patient did have some oxygen desaturations requiring prolonged mechanical ventilator support which was treated accordingly. Subsequently the patient was extubated and and progressed with cardiac rehabilitation phase 1. Patient also postoperatively had some nonsustained ventricular tachycardia which was treated accordingly.] COMPLICATIONS: [His postoperative period was complicated by prolonged mechanical ventilator support due to oxygen desaturations which were treated accordingly.] CONSULTATIONS: 1.[Dr. Rees for cardiology management] 2.[Dr. Ewing for pulmonary and ventilator management] 3.[Dr. Teixeira for medical management] DISCHARGE INSTRUCTIONS: 1. No driving for 4 weeks, or until physician gives their ok. 2. The patient should sleep in their own bed, no medical bed needed. 3. Stairs are not an issue. If the bedroom is upstairs, it is advised that the patient go up at night and down in the morning for the first week. Go slowly, using handrail and take 1 step at a time. 4. SHIRA hose are to be worn for 30 days or until physician discontinues. 5. Heart hugger is to be worn 100% of the time until physician discontinues.( excepet when showering) 6. No lifting, pushing, or pulling more than 10 pounds for 12 weeks. The physician will advise of any restriction changes. 7. The patient is expected to continue the prescribed walking program. 8. Continue pain control per as needed orders. 9. Continue with incentive spirometry and splinting/heart hugger until otherwise directed by the physician. 10. Must shower daily using liquid antibacterial soap and a separate white washcloth for each individual incision. 11. The importance of smoking cessation was discussed with the patient and a smoking cessation pamphlet was given to the patient. HOME HEALTH SERVICES TO PROVIDE: RN SKILLED HOME CARE SERVICES FOR POST-OP SURGICAL PATIENTS WITH THE FOLLOWING: Coronary Artery Bypass Surgery (CABG), Mitral Valve Replacement/ Repair ( MVR), Aortic Valve Replacement/Repair (AVR) RN TO CONTINUE EDUCATION FROM ``ROAD TO A HEALTH HEART PATIENT EDUCATION MANUAL (GIVEN TO PATIENT IN THE HOSPITAL) MEDICATION RECONCILIATION WITH EDUCATION NEEDED ON FIRST HOME VISIT EMPHASIZE IMPORTANCE OF WEARING BREAST SUPPORT/HEART HUGGER ENCOURAGE USE OF INCENTIVE SPIROMETER 10 X EVERY HOUR WHILE AWAKE ENCOURAGE UTILIZATION OF LOWER EXTREMITY COMPRESSION STOCKINGS/SHIRA HOSE and ELEVATE LEGS ABOVE LEVEL OF HEART WHILE AT REST. ENCOURAGE AMBULATION 3-5x/day INCREASING TOLERATES, WHILE AVOID EXTREMES IN TEMPERATURE FREQUENCY: RN TO OPEN THE PATIENT WITHIN 24 HOURS OF DISCHARGE FROM THE HOSPITAL WITH TELEHEALTH INSTALLED AT [facility] [place], RN TO VISIT 2-3 X A WEEK FOR 4 WEEKS ESTABLISHED BY PATIENT NEEDS. LABORATORY: CBC, CMP TO BE DRAWN ON THE THIRD DAY HOME, Monday01/11/2017 (RAN STAT) FAX RESULTS TO [phone]. TELEHEALTH PARAMETERS: WEIGHT: NOTIFY MD OF WEIGHT GAIN OF 2 LBS IN 24 HOURS OR 5 LBS IN ONE WEEK HR: NOTIFY MD OF HR <55 BPM OR HR>100 BPM BP: NOTIFY MD IF BP <90/55 OR BP>140/100 O2 SAT: NOTIFY MD IF PO2<93% ON ROOM AIR SEND TELEHEALTH REPORT TO BUFFING AND POLISHING WHEEL REPAIRER AND CARDIOVASCULAR SURGEON THE FIRST WEEK OF CARE AND THEN BI-WEEKLY. PLEASE ADDITIONALLY COMMUNICATE ANY ABNORMALS AND NEW FINDINGS TO THE SURGEONS OFFICE. Patient Condition at Discharge: Serious Plan - Discharge Summary New Discharge Prescriptions: HYDROcodone/APAP 5-325MG [[place] 5-325] 1 each PO Q4HR PRN #30 tab PRN Reason: Moderate Pain Amiodarone [Cordarone] 200 mg PO BID #37 tab Aspirin 325 mg PO DAILY #30 tab Atorvastatin [Lipitor] 40 mg PO HS #30 tab Clopidogrel [Plavix] 75 mg PO DAILY #30 tab Furosemide [Lasix] 40 mg PO DAILY #3 tablet Metoprolol Tartrate [Lopressor] 25 mg PO BID #60 tab Potassium Chloride ER [K-Dur 10] 10 meq PO DAILY #3 tab Discharge Medication List Amiodarone [Cordarone] 200 mg PO BID #37 tab 01/07/17 [Rx] Aspirin 325 mg PO DAILY #30 tab 01/07/17 [Rx] Atorvastatin [Lipitor] 40 mg PO HS #30 tab 01/07/17 [Rx] Clopidogrel [Plavix] 75 mg PO DAILY #30 tab 01/07/17 [Rx] Furosemide [Lasix] 40 mg PO DAILY #3 tablet 01/07/17 [Rx] HYDROcodone/APAP 5-325MG [[place] 5-325] 1 each PO Q4HR PRN #30 tab 01/07/17 [Rx] Metoprolol Tartrate [Lopressor] 25 mg PO BID #60 tab 01/07/17 [Rx] Potassium Chloride ER [K-Dur 10] 10 meq PO DAILY #3 tab 01/07/17 [Rx] Follow up Appointment(s)/Referral(s): Sommer Perry[place]osmel, [NON-STAFF] - 1 Week (Contact regarding discharge for follow up) None,Stated [Primary Care Provider] - 1 Week (Seee provider as directed. ) Gabrielle Rees MD [STAFF PHYSICIAN] - 2 Weeks (office closed on discharge day, contact for appointment) Patient Instructions/Handouts: Left Heart Catheterization (DC), How to Stop Smoking (DC), Coronary Artery Bypass Graft (DC) Activity/Diet/Wound Care/Special Instructions: Health Access Line for primary care physician referral [phone] Discharge Disposition: HOME WITH HOME HEALTH SERVICES
== END 2017-01-07 17:05 | disposition home health service (06) | DRG 234 ==
LOC: EC 08:01 → 6SEL 09:08 → 6ICU 01-02 07:29 → 6SEL 01-05 15:50
PROVIDERS: ADMIT Surgery; ATTEND Surgery
PROC: B2151ZZ Fluoroscopy of Left Heart using Low Osmolar Contrast (ICD-10-PCS; principal; 2016-12-30 09:45)
PROC: B2111ZZ Fluoroscopy of Multiple Coronary Arteries using Low Osmolar Contrast (ICD-10-PCS; principal; 2016-12-30 09:45)
PROC: 4A023N7 Measurement of Cardiac Sampling and Pressure, Left Heart, Percutaneous Approach (ICD-10-PCS; principal; 2016-12-30 09:45)
PROC: 021109W Bypass Coronary Artery, Two Arteries from Aorta with Autologous Venous Tissue, Open Approach (ICD-10-PCS; 2017-01-02)
PROC: 02100Z8 Bypass Coronary Artery, One Artery from Right Internal Mammary, Open Approach (ICD-10-PCS; 2017-01-02)
PROC: 5A1221Z Performance of Cardiac Output, Continuous (ICD-10-PCS; 2017-01-02)
PROC: 02100Z9 Bypass Coronary Artery, One Artery from Left Internal Mammary, Open Approach (ICD-10-PCS; 2017-01-02)
PROC: 06BP4ZZ Excision of Right Saphenous Vein, Percutaneous Endoscopic Approach (ICD-10-PCS; 2017-01-02)
PROC: B246ZZ4 Ultrasonography of Right and Left Heart, Transesophageal (ICD-10-PCS; 2017-01-02)
DX: I21.4 Non-ST elevation (NSTEMI) myocardial infarction (principal); I47.2 Ventricular tachycardia; J90 Pleural effusion, not elsewhere classified; I11.9 Hypertensive heart disease without heart failure; S27.392A Other injuries of lung, bilateral, initial encounter; J98.11 Atelectasis; E87.70 Fluid overload, unspecified; E78.5 Hyperlipidemia, unspecified; D64.9 Anemia, unspecified; I25.110 Atherosclerotic heart disease of native coronary artery with unstable angina pectoris; F17.210 Nicotine dependence, cigarettes, uncomplicated; I49.9 Cardiac arrhythmia, unspecified; I73.9 Peripheral vascular disease, unspecified; R09.02 Hypoxemia; I97.3 Postprocedural hypertension
CPT/HCPCS: 36415; 36620; 71010; 71020; 80048; 80053; 80061; 80074; 81003; 82330; 82550; 82553; 82805; 83036; 83735; 83880; 84100; 84132; 84443; 84484; 85025; 85520; 85610; 85730; 86850; 86891; 86900; 86901; 86920; 87070; 87086; 93005; 93306; 93458; 93880; 93923; 93970; 94002; 94003; 94150; 94640; 96365; 96376; 99291

== ENCOUNTER 2018-01-30 09:41 | Observation (INO) | payer OTHER ==
[2018-01-30] MEDS ORDERED: NITROGLYCERIN SL TABS 0.4 MG TAB SUBLINGUAL STA (10:25)
--- NOTE | 2018-01-30 10:38 | ED ---
Chest Pain HPI - General Chief Complaint: Chest Pain Stated Complaint: Chest pain Time Seen by Provider: 01/30/18 10:15 Source: patient, RN notes reviewed Mode of arrival: ambulatory Limitations: no limitations - History of Present Illness Initial Comments: 57-year-old male presents emergency Department chief complaint chest pressure. Patient states symptoms started this morning when he woke up. He states he just does not feel right. Patient had a quadruple bypass one year ago. Patient states she stepped his primary care physician's office prior to coming here he did do basic vitals which were normal. Patient states he does take aspirin daily has taken today. Patient's drum worker is Dr. Cr who he has regular followed up with. Patient has no current abdominal pain, nausea, vomiting, diarrhea constipation. He states he has pain in the left side of his chest he describes as a pressure or burning sensation in does radiate under his left arm. Patient denies any headache or any current dizziness - Related Data Home Medications Medication Instructions Recorded Confirmed Atorvastatin [Lipitor] 40 mg PO DAILY 01/30/18 01/30/18 Lisinopril [Zestril] 2.5 mg PO DAILY 01/30/18 01/30/18 Metoprolol Tartrate [Lopressor] 25 mg PO DAILY 01/30/18 01/30/18 Previous Rx's Medication Instructions Recorded Aspirin 325 mg PO DAILY #30 tab 01/07/17 Allergies Allergy/AdvReac Type Severity Reaction Status Date / Time No Known Allergies Allergy Verified 01/30/18 10:33 Review of Systems ROS Statement: Those systems with pertinent positive or pertinent negative responses have been documented in the HPI. ROS Other: All systems not noted in ROS Statement are negative. EKG Findings - EKG Comments: EKG Findings:: EKG performed at 10:04 normal sinus rhythm there is a rate of 67 MO 160 QRS 92 QT/QTC 394/416 Past Medical History Past Medical History: No Reported History Additional Past Medical History / Comment(s): 12/30/16 NSTEMI. Other hx: L hip injury-misaligned and tx by chiropractor. History of Any Multi-Drug Resistant Organisms: None Reported Past Surgical History: No Surgical Hx Reported, Coronary Bypass/CABG, Heart Catheterization With Stent Additional Past Surgical History / Comment(s): vasectomy with reversal. 4 vessel bipass Past Anesthesia/Blood Transfusion Reactions: No Reported Reaction Past Psychological History: No Psychological Hx Reported Smoking Status: Current every day smoker Past Alcohol Use History: Daily Past Drug Use History: None Reported - Past Family History Father Family Medical History: Deep Vein Thrombosis (DVT) Additional Family Medical History / Comment(s): Father has had bilateral caratid endartectomies and DVT in leg. He is 78yrs old. Mother Additional Family Medical History / Comment(s): Mother at 74 yrs of age had cardiac valve repair along with hole in heart repaired. She is now 76yrs old. General Exam Limitations: no limitations General appearance: alert, in no apparent distress Head exam: Present: atraumatic, normocephalic, normal inspection Eye exam: Present: normal appearance, PERRL, EOMI. Absent: scleral icterus, conjunctival injection, periorbital swelling ENT exam: Present: normal exam, normal oropharynx, mucous membranes moist Neck exam: Present: normal inspection, full ROM. Absent: tenderness, meningismus, lymphadenopathy Respiratory exam: Present: normal lung sounds bilaterally. Absent: respiratory distress, wheezes, rales, rhonchi, stridor, chest wall tenderness Cardiovascular Exam: Present: regular rate, normal rhythm, normal heart sounds. Absent: systolic murmur, diastolic murmur, rubs, gallop, clicks GI/Abdominal exam: Present: soft, normal bowel sounds. Absent: distended, tenderness, guarding, rebound, rigid Neurological exam: Present: alert, oriented X3, CN II-XII intact, reflexes normal. Absent: motor sensory deficit Skin exam: Present: warm, dry, intact, normal color. Absent: rash Course Vital Signs 01/30/18 01/30/18 09:53 11:10 Temperature 97.6 F Pulse Rate 69 72 Respiratory 18 16 Rate Blood Pressure 157/84 167/93 O2 Sat by Pulse 99 98 Oximetry Chest Pain MDM - MDM 57-year-old male present emergency from for chest pain. Patient has a history of CABG. Patient lab EKG unremarkable at this point though he'll be held for repeat cardiac enzymes and cardiology evaluation. Disposition Clinical Impression: Chest pain, S/P CABG (coronary artery bypass graft) Disposition: ADMITTED IP TO THIS HOSP Condition: Stable Referrals: Alma Beckwith MD [Primary Care Provider] - 1-2 days
[2018-01-30 10:43] LABS: Basophils # (A) 0.1 k/uL (0-0.2); Basophils % (A) 1 %; Eosinophils # (A) 0.2 k/uL (0-0.7); Eosinophils % (A) 3 %; HCT 46.5 % (39.0-53.0); HGB 15.7 gm/dL (13.0-17.5); Lymphocytes # (A) 1.8 k/uL (1.0-4.8); Lymphocytes % (A) 29 %; MCH 31.3 pg (25.0-35.0); MCHC 33.9 g/dL (31.0-37.0); MCV 92.3 fL (80.0-100.0); Mean Platelet Volume 6.6; Monocytes # (A) 0.3 k/uL (0-1.0); Monocytes % (A) 5 %; Neutrophils # (A) 3.6 k/uL (1.3-7.7); Neutrophils % (A) 60 %; Platelet Count 186 k/uL (150-450); RBC 5.04 m/uL (4.30-5.90); RDW 13.9 % (11.5-15.5); WBC 6.1 k/uL (3.8-10.6)
--- NOTE | 2018-01-30 10:44 | XR ---
EXAMINATION TYPE: XR chest 2V DATE OF EXAM: 01/30/2018 COMPARISON: 01/07/2017 INDICATION: Chest pain TECHNIQUE: Frontal and lateral views of the chest are obtained. FINDINGS: The heart size is normal. The pulmonary vasculature is normal. The lungs are clear. Sternotomy wires are present in the midline. IMPRESSION: 1. No acute pulmonary process.
[2018-01-30 10:53] LABS: ALT 85 U/L (21-72); AST 39 U/L (17-59); Albumin 4.3 g/dL (3.5-5.0); Alkaline Phosphatase 78 U/L (38-126); Anion Gap 12 mmol/L; Blood Urea Nitrogen 12 mg/dL (9-20); Calcium 9.8 mg/dL (8.4-10.2); Carbon Dioxide 28 mmol/L (22-30); Chloride 102 mmol/L (98-107); Glucose 84 mg/dL (74-99); Lipase 78 U/L (23-300); Magnesium 2.3 mg/dL (1.6-2.3); Potassium 4.7 mmol/L (3.5-5.1); Sodium 142 mmol/L (137-145); Total Bilirubin 0.5 mg/dL (0.2-1.3); Total Protein 6.9 g/dL (6.3-8.2)
[2018-01-30 10:55] LABS: D-Dimer 0.22 mg/L FEU (<0.60); Partial Thromboplastin Time 23.2 sec (22.0-30.0); Prothrombin Time 9.9 sec (9.0-12.0)
[2018-01-30 11:10] LABS: Creatine Kinase 210 U/L (55-170)
[2018-01-30 11:23] LABS: Troponin I <0.012 ng/mL (0.000-0.034)
[2018-01-30 11:28] LABS: Creatine Kinase MB 2.7 ng/mL (0.0-2.4)
[2018-01-30] MEDS ORDERED: NITROGLYCERIN SL TABS 0.4 MG TAB SUBLINGUAL PRN (12:04)
[2018-01-30] MEDS ORDERED: HEPARIN SODIUM,PORCINE 5,000 UNIT/ML 1 ML VIAL IV ONE (12:04)
[2018-01-30] MEDS ORDERED: HEPARIN SODIUM,PORCINE/D5W PMX 25,000 UNIT in DEXTROSE/WATER 1 500ML.BAG IV SCH (12:15)
--- NOTE | 2018-01-30 15:08 | P.HPIM ---
History of Present Illness H&P Date: 01/30/18 Chief Complaint: Chest tightness This is a 57-year-old gentleman with past medical history noted below significant for underlying coronary artery disease status post CABG approximately a year ago. Patient presented to the emergency room with chest tightness involving the left chest. He said that his symptoms started this morning around 6 in the morning and he describe it as tightness involving the left chest as if he was squeezing his finger. He denies any ailyn chest pain. He said that his symptoms were intermittent and were not triggered by activity or exercise. He denies any shortness of breath, diaphoresis, or dizziness. He was concerned and decided to go to his primary care physician to check his vital signs and make sure that he is okay. He was advised to go to the emergency room for further evaluation. In the emergency room, patient was found to be hemodynamically stable. Blood pressure slightly elevated on presentation. 12-lead EKG showed no acute ischemic changes. Initial troponin is normal. Patient said that he was given nitroglycerin with significant improvement in his symptoms. He is pain-free at this time. Plan is to place him on observation for cardiology consultation. For an unclear reason patient was started on IV heparin drip. Review of Systems Review of system: 14 points review of systems were obtained and were negative except to what were mentioned in the HPI. Past Medical History Past Medical History: No Reported History Additional Past Medical History / Comment(s): 12/30/16 NSTEMI. Other hx: L hip injury-misaligned and tx by chiropractor. History of Any Multi-Drug Resistant Organisms: None Reported Past Surgical History: No Surgical Hx Reported, Coronary Bypass/CABG, Heart Catheterization With Stent Additional Past Surgical History / Comment(s): vasectomy with reversal. 4 vessel bipass Past Anesthesia/Blood Transfusion Reactions: No Reported Reaction Past Psychological History: No Psychological Hx Reported Smoking Status: Current every day smoker Past Alcohol Use History: Daily Past Drug Use History: None Reported - Past Family History Father Family Medical History: Deep Vein Thrombosis (DVT) Additional Family Medical History / Comment(s): Father has had bilateral caratid endartectomies and DVT in leg. He is 78yrs old. Mother Additional Family Medical History / Comment(s): Mother at 74 yrs of age had cardiac valve repair along with hole in heart repaired. She is now 76yrs old. Medications and Allergies Home Medications Medication Instructions Recorded Confirmed Type Aspirin 325 mg PO DAILY #30 tab 01/07/17 01/30/18 Rx Atorvastatin [Lipitor] 40 mg PO DAILY 01/30/18 01/30/18 History Lisinopril [Zestril] 2.5 mg PO DAILY 01/30/18 01/30/18 History Metoprolol Tartrate [Lopressor] 25 mg PO DAILY 01/30/18 01/30/18 History Allergies Allergy/AdvReac Type Severity Reaction Status Date / Time No Known Allergies Allergy Verified 01/30/18 10:33 Physical Exam Vitals: Vital Signs Temp Pulse Pulse Resp BP BP Pulse Ox 01/30/18 14:55 98.3 F 80 18 145/88 94 L 01/30/18 14:39 79 16 123/82 98 01/30/18 14:25 68 16 123/68 98 01/30/18 11:10 72 16 167/93 98 01/30/18 09:53 97.6 F 69 18 157/84 99 Intake and Output 01/30/18 01/30/18 01/30/18 06:59 14:59 22:59 Other: Weight 88.4 kg General: The patient is awake and alert, in no distress Eye: there is normal conjunctiva bilaterally. Neck: The neck is supple, there is no JVD. Cardiovascular: Normal S1-S2, no S3-S4, no murmurs. Respiratory: Lungs clear to auscultation bilaterally Gastrointestinal: Abdomen is soft, nontender Musculoskeletal: There is no pedal edema. Neurological:. Speech is normal. Skin: Skin is warm and dry Results CBC & Chem 7: 01/30/18 10:25 01/30/18 10:25 Labs: Abnormal Lab Results - Last 24 Hours (Table) 01/30/18 01/30/18 Range/Units 10:25 10:25 ALT 85 H (21-72) U/L Total Creatine Kinase 210 H (55-170) U/L CK-MB (CK-2) 2.7 H* (0.0-2.4) ng/mL Assessment and Plan Assessment: 1. Chest tightness, mostly atypical in nature. May be related to anxiety and stress at work. 12-lead EKG showed no acute ischemic changes. Initial troponin is negative. Patient is currently chest pain-free. I would discontinue IV heparin drip as there is no evidence of ACS. Patient will be placed on observation awaiting cardiology evaluation. 2. Underlying coronary artery disease with history of CABG approximately a year ago. Continue medical management. Would hold metoprolol for now in case stress testing is considered by cardiology. 3. Essential hypertension, blood pressure well-controlled 4. Hyperlipidemia maintained on Lipitor. Fasting lipid profile ordered.
[2018-01-30 16:40] LABS: Creatine Kinase 194 U/L (55-170)
[2018-01-30 16:53] LABS: Troponin I <0.012 ng/mL (0.000-0.034)
[2018-01-30 16:58] LABS: Creatine Kinase MB 2.6 ng/mL (0.0-2.4)
[2018-01-30 19:18] VITALS: RESP 16
[2018-01-30] MEDS ORDERED: HEPARIN SODIUM,PORCINE 5,000 UNIT/ML 1 ML VIAL IV PRN (19:56)
[2018-01-30 23:04] LABS: Creatine Kinase 212 U/L (55-170)
[2018-01-30 23:17] LABS: Creatine Kinase MB 2.4 ng/mL (0.0-2.4); Troponin I <0.012 ng/mL (0.000-0.034)
[2018-01-31 04:30] LABS: Cholesterol 139 mg/dL (<200); HDL Cholesterol 57 mg/dL (40-60); LDL Cholesterol,Calculated 66 mg/dL (0-99); Triglycerides 78 mg/dL (<150)
--- NOTE | 2018-01-31 07:40 | P.CRDCN ---
History of Present Illness Consult date: 01/31/18 Chief complaint: Chest pain History of present illness: This is a pleasant 57-year-old gentleman who sees Dr. Rees in the office as an outpatient with coronary artery disease and status post coronary artery virus grafting. In December 2016, the patient underwent CABG 4 where he received VELÁSQUEZ to OM1, DEEPA to LAD, SVG to diagonal, and SVG to OM 3. Beside that the patient does have hypertension, dyslipidemia, and unfortunately he continues to smoke. He was doing some weed backing the day before yesterday and he did not have any symptoms of chest pain or chest discomfort on that day. The following day he was experiencing intermittent episodes of chest tightness, seems to be nonexertional and mostly with resting, with each episode last for a few seconds only. The discomfort was mainly in the chest and did not radiate to the arm or neck or shoulders and was not associated with shortness of breath, sweating, dizziness or lightheadedness, or syncope. The time he arrived to emergency room he was pain-free. The patient continues to be pain-free during his hospitalization. He was advised to present to the hospital after he talked to his primary care physician. In terms of workup, the EKG showed sinus rhythm without significant ST or T- wave abnormalities. The patient underwent 3 sets of cardiac enzymes came in to be unremarkable. The chest x-ray did not show any acute abnormalities. More importantly, the patient clearly stated that the chest discomfort this time is completely different from what he had before the heart attack and seems to be very atypical and of brief duration. Past Medical History Past Medical History: Coronary Artery Disease (CAD), GERD/Reflux, Hyperlipidemia , Hypertension, Myocardial Infarction (OR), Pneumonia Additional Past Medical History / Comment(s): 12/30/16 NSTEMI. Other hx: L hip injury-misaligned and tx by chiropractor.bronchitis Last Myocardial Infarction Date:: 2016 History of Any Multi-Drug Resistant Organisms: None Reported Past Surgical History: Coronary Bypass/CABG, Heart Catheterization Additional Past Surgical History / Comment(s): vasectomy with reversal. 4 vessel bypass Past Anesthesia/Blood Transfusion Reactions: No Reported Reaction Smoking Status: Current every day smoker - Past Family History Father Family Medical History: Deep Vein Thrombosis (DVT) Additional Family Medical History / Comment(s): Father has had bilateral caratid endartectomies and DVT in leg. He is 78yrs old. Mother Additional Family Medical History / Comment(s): Mother at 74 yrs of age had cardiac valve repair along with hole in heart repaired. She is now 76yrs old. Medications and Allergies Home Medications Medication Instructions Recorded Confirmed Type Aspirin 325 mg PO DAILY #30 tab 01/07/17 01/30/18 Rx Atorvastatin [Lipitor] 40 mg PO DAILY 01/30/18 01/30/18 History Lisinopril [Zestril] 2.5 mg PO DAILY 01/30/18 01/30/18 History Metoprolol Tartrate [Lopressor] 25 mg PO DAILY 01/30/18 01/30/18 History Allergies Allergy/AdvReac Type Severity Reaction Status Date / Time No Known Allergies Allergy Verified 01/30/18 10:33 Physical Exam Vitals: Vital Signs Temp Pulse Pulse Resp BP BP Pulse Ox 01/31/18 03:49 16 01/31/18 03:34 98.1 F 90 16 117/73 97 01/30/18 23:37 16 01/30/18 23:28 97.6 F 85 16 140/77 96 01/30/18 20:00 16 01/30/18 19:17 97.9 F 75 16 125/76 92 L 01/30/18 16:00 80 18 01/30/18 14:55 98.3 F 80 18 145/88 94 L 01/30/18 14:39 79 16 123/82 98 01/30/18 14:25 68 16 123/68 98 01/30/18 11:10 72 16 167/93 98 01/30/18 09:53 97.6 F 69 18 157/84 99 Intake and Output 01/30/18 01/31/18 01/31/18 22:59 06:59 14:59 Intake Total 571.591 Balance 571.591 Intake: IV 120 0.9@20 60 Heparin Sodium,Porcine/ 60 D5w Pmx 25,000 unit In Dextrose/Water 1 500ml. bag @ 11.6 UNITS/KG/HR 19 .99 mls/hr IV .Q24H [facility] Rx#:[id number] Intake, IV Titration 151.591 Amount Heparin Sodium,Porcine/ 151.591 D5w Pmx 25,000 unit In Dextrose/Water 1 500ml. bag @ 11.6 UNITS/KG/HR 19 .99 mls/hr IV .Q24H [facility] Rx#:[id number] Oral 300 Other: Voiding Method Toilet Toilet # Voids 2 2 - Constitutional General appearance: no acute distress - Respiratory Respiratory: bilateral: CTA - Cardiovascular Rhythm: regular Heart sounds: normal: S1, S2 Results 01/30/18 10:25 01/30/18 10:25 Cardiac Enzymes 01/30/18 01/30/18 01/30/18 Range/Units 10:25 10:25 16:03 AST 39 (17-59) U/L CK-MB (CK-2) 2.7 H* 2.6 H* (0.0-2.4) ng/mL Troponin I <0.012 <0.012 (0.000-0.034) ng/mL 01/30/18 Range/Units 22:09 AST (17-59) U/L CK-MB (CK-2) 2.4 (0.0-2.4) ng/mL Troponin I <0.012 (0.000-0.034) ng/mL Coagulation 01/30/18 01/30/18 01/31/18 Range/Units 10:25 18:33 03:14 PT 9.9 (9.0-12.0) sec APTT 23.2 35.7 H 65.4 H (22.0-30.0) sec Lipids 01/31/18 Range/Units 03:14 Triglycerides 78 (<150) mg/dL Cholesterol 139 (<200) mg/dL HDL Cholesterol 57 (40-60) mg/dL CBC 01/30/18 Range/Units 10:25 WBC 6.1 (3.8-10.6) k/uL RBC 5.04 (4.30-5.90) m/uL Hgb 15.7 (13.0-17.5) gm/dL Hct 46.5 (39.0-53.0) % Plt Count 186 (150-450) k/uL Comprehensive Metabolic Panel 01/30/18 Range/Units 10:25 Sodium 142 (137-145) mmol/L Potassium 4.7 (3.5-5.1) mmol/L Chloride 102 (98-107) mmol/L Carbon Dioxide 28 (22-30) mmol/L BUN 12 (9-20) mg/dL Creatinine 0.84 (0.66-1.25) mg/dL Glucose 84 (74-99) mg/dL Calcium 9.8 (8.4-10.2) mg/dL AST 39 (17-59) U/L ALT 85 H (21-72) U/L Alkaline Phosphatase 78 (38-126) U/L Total Protein 6.9 (6.3-8.2) g/dL Albumin 4.3 (3.5-5.0) g/dL Current Medications Generic Name Dose Route Start Last Admin Trade Name Freq PRN Reason Stop Dose Admin Aspirin 325 mg 01/31/18 09:00 Aspirin PO DAILY [facility] Atorvastatin Calcium 40 mg 01/31/18 09:00 Lipitor PO DAILY [facility] Heparin Sodium (Porcine) 0 unit 01/30/18 19:56 01/30/18 20:06 Heparin IV 4,000 unit PER PROTOCOL PRN Administration Low PTT Protocol Heparin Sodium/Dextrose 25,000 500 mls @ 19.99 mls/hr 01/30/18 12:15 20:04 unit/ IV Solution IV 14.6 units/kg/hr .Q24H [facility] 25.16 mls/hr Protocol Titration 11.6 UNITS/KG/HR Lisinopril 2.5 mg 01/31/18 09:00 Zestril PO DAILY [facility] Nitroglycerin 0.4 mg 01/30/18 12:04 Nitrostat SUBLINGUAL Q5M PRN Chest Pain Intake and Output 01/30/18 01/31/18 01/31/18 22:59 06:59 14:59 Intake Total 571.591 Balance 571.591 Intake: IV 120 0.9@20 60 Heparin Sodium,Porcine/ 60 D5w Pmx 25,000 unit In Dextrose/Water 1 500ml. bag @ 11.6 UNITS/KG/HR 19 .99 mls/hr IV .Q24H [facility] Rx#:[id number] Intake, IV Titration 151.591 Amount Heparin Sodium,Porcine/ 151.591 D5w Pmx 25,000 unit In Dextrose/Water 1 500ml. bag @ 11.6 UNITS/KG/HR 19 .99 mls/hr IV .Q24H [facility] Rx#:[id number] Oral 300 Other: Voiding Method Toilet Toilet # Voids 2 2 01/30/18 10:25 01/30/18 10:25 Assessment and Plan Assessment: Assessment #1 atypical chest discomfort #2 CAD and status post CABG 4 as described above #3 smoking #4 hypertension #5 dyslipidemia Plan #1 the patient continues to be pain-free #2 he was ruled out for acute coronary event. 3 sets of cardiac enzymes came in to be unremarkable and the EKG did not show any ischemic changes #3 I will DC the heparin at this point #4 I would get the patient up and around. If he is asymptomatic he might be able to be discharged home. #5 I discussed with him the possible need for stress test probably as an outpatient. The patient expressed the wishes that he would like to be discharged home. Thank you for allowing us participate in his care
[2018-01-31] MEDS ORDERED: ASPIRIN 325 MG TAB PO SCH ×2 (09:00)
[2018-01-31] MEDS ORDERED: LISINOPRIL 2.5 MG TAB PO SCH (09:00)
[2018-01-31] MEDS ORDERED: ATORVASTATIN 40 MG TAB PO SCH (09:00)
[2018-01-31 12:08] VITALS: BP 154/81; PULSE 87; TEMP 97.7
--- NOTE | 2018-01-31 12:33 | P.DS ---
Providers Date of admission: 01/30/18 12:00 Expected date of discharge: 01/31/18 Attending physician: Germán Arthur Consults: 01/30/18 12:04 Consult Physician Urgent Consulting Provider: Gabrielle Rees Consult Reason/Comments: chest pain Do you want consulting provider notified?: Yes Primary care physician: Alma Beckwith Hospital Course: 1. Chest tightness, mostly atypical in nature. May be related to anxiety and stress at work. 12-lead EKG showed no acute ischemic changes. Initial troponin is negative x3. Patient is currently chest pain-free. Patient was seen and evaluated by cardiology and cleared for discharge home. May consider statin therapy as an outpatient. 2. Underlying coronary artery disease with history of CABG approximately a year ago. Continue medical management. 3. Essential hypertension, blood pressure well-controlled 4. Hyperlipidemia maintained on Lipitor. Cholesterol level at goal Patient Condition at Discharge: Stable Plan - Discharge Summary Discharge Rx Participant: Yes New Discharge Prescriptions: Continue Aspirin 325 mg PO DAILY #30 tab Metoprolol Tartrate [Lopressor] 25 mg PO DAILY Lisinopril [Zestril] 2.5 mg PO DAILY Atorvastatin [Lipitor] 40 mg PO DAILY Discharge Medication List Aspirin 325 mg PO DAILY #30 tab 01/07/17 [Rx] Atorvastatin [Lipitor] 40 mg PO DAILY 01/30/18 [History] Lisinopril [Zestril] 2.5 mg PO DAILY 01/30/18 [History] Metoprolol Tartrate [Lopressor] 25 mg PO DAILY 01/30/18 [History] Follow up Appointment(s)/Referral(s): Alma Beckwith MD [Primary Care Provider] - 1-2 days Gabrielle Rees MD [STAFF PHYSICIAN] - 02/12/18 9:00 am Discharge Disposition: HOME SELF-CARE
== END 2018-01-31 13:05 | disposition home or self-care (01) ==
LOC: EC 09:41 → 3OBS 12:00
PROVIDERS: ADMIT Internal Medicine; ATTEND Internal Medicine
DX: R07.89 Other chest pain (principal); I25.10 Atherosclerotic heart disease of native coronary artery without angina pectoris; I10 Essential (primary) hypertension; E78.5 Hyperlipidemia, unspecified; K21.9 Gastro-esophageal reflux disease without esophagitis; F17.200 Nicotine dependence, unspecified, uncomplicated; Z79.82 Long term (current) use of aspirin; Z79.899 Other long term (current) drug therapy; I25.2 Old myocardial infarction; Z95.1 Presence of aortocoronary bypass graft; Z95.5 Presence of coronary angioplasty implant and graft; Z87.01 Personal history of pneumonia (recurrent); Z82.49 Family history of ischemic heart disease and other diseases of the circulatory system
CPT/HCPCS: 99285 ×2; 96365 ×2; 96366 ×5; 96376 ×3; 36415; 93005; 85379; 83880; 80061; 80053; 82550; 82553; 83690; 83735; 84484; 85025; 85610; 85730 ×2; 71046; G0378 ×2; J1644 ×2

== ENCOUNTER → 2020-08-14 | Outpatient (CLI) | payer BC | END | disposition home or self-care (01) | LOC: LABWHC1 16:55 | PROVIDERS: ATTEND Family Medicine | DX: R05 Cough (principal); R09.89 Other specified symptoms and signs involving the circulatory and respiratory systems; Z20.828 Contact with and (suspected) exposure to other viral communicable diseases | CPT/HCPCS: U0003; C9803 ==

== ENCOUNTER → 2021-03-09 | Outpatient (CLI) | payer BC ==
--- NOTE | 2021-03-09 12:30 | XR ---
EXAMINATION TYPE: XR chest 2V DATE OF EXAM: 03/09/2021 COMPARISON: 01/30/2018 HISTORY: Shortness of breath TECHNIQUE: Frontal and lateral views of the chest are obtained. FINDINGS: Scattered senescent parenchymal changes noted. Hyperinflation compatible with COPD. No evidence for infiltrate. No evidence for atelectasis. Heart size is stable. Mediastinal structures are stable and grossly unremarkable. No evidence for hilar prominence. Degenerative changes dorsal spine. IMPRESSION: 1. No evidence for acute pulmonary disease.
== END | disposition home or self-care (01) ==
LOC: RADXRMAIN 11:20
PROVIDERS: ATTEND Orthopaedic Surgery Sports Medicine
DX: S46.811A Strain of other muscles, fascia and tendons at shoulder and upper arm level, right arm, initial encounter (principal); M75.121 Complete rotator cuff tear or rupture of right shoulder, not specified as traumatic; M25.511 Pain in right shoulder; M25.512 Pain in left shoulder; M75.41 Impingement syndrome of right shoulder; M75.102 Unspecified rotator cuff tear or rupture of left shoulder, not specified as traumatic; M75.101 Unspecified rotator cuff tear or rupture of right shoulder, not specified as traumatic; Z18.10 Retained metal fragments, unspecified; X58.XXXA Exposure to other specified factors, initial encounter
CPT/HCPCS: 71046

== ENCOUNTER 2025-01-08 08:17 | Day surgery (SDC) | payer BC ==
[~2025-01-08 08:17] MED LIST: ALPRAZolam 0.25 MG TAB PO PRN; ALPRAZolam 0.5 MG TAB PO PRN; NITROGLYCERIN SL TABS 0.4 MG TAB SUBLINGUAL PRN
[2025-01-08 08:36] VITALS: RESP 14; TEMP 97.1
[2025-01-08] MEDS: ASPIRIN 325 MG TAB PO STA (08:42)
[2025-01-08] MEDS: SODIUM CHLORIDE 0.9% 1,000 ML in EMPTY BAG 1 BAG IV SCH (08:43)
[2025-01-08] MEDS: IV FLUID CONTINUATION 1,000 ML IV ONE (08:44)
[2025-01-08 08:46] LABS: Basophils # (A) 0.07 10*3/uL (0.00-0.10); Eosinophils # (A) 0.13 10*3/uL (0.04-0.35); Eosinophils % (A) 1.9 %; HCT 49.4 % (39.6-50.0); HGB 16.7 g/dL (13.0-17.0); Lymphocytes % (A) 32.8 %; MCH 31.3 pg (27.0-32.0); MCHC 33.8 g/dL (32.0-37.0); MCV 92.5 fL (80.0-97.0); Mean Platelet Volume 9.6 fL (9.5-12.2); Monocytes # (A) 0.56 10*3/uL (0.20-1.00); Neutrophils # (A) 3.94 10*3/uL (1.80-7.70); Platelet Count 228 10*3/uL (140-440); RBC 5.34 10*6/uL (4.40-5.60); RDW 13.4 % (11.5-14.5); WBC 7.02 10*3/uL (4.50-10.00)
[2025-01-08 08:57] LABS: African American GFR (CKD) >90 (>60 ml/min/1.73 sqM); Anion Gap 6 mmol/L; Blood Urea Nitrogen 14 mg/dL (9-20); Calcium 9.5 mg/dL (8.4-10.2); Carbon Dioxide 29 mmol/L (22-30); Chloride 103 mmol/L (98-107); Glucose 106 mg/dL (74-99); Non-African American GFR(CKD) >90 (>60 ml/min/1.73 sqM); Potassium 4.5 mmol/L (3.5-5.1); Sodium 138 mmol/L (137-145)
[2025-01-08] MEDS: MIDAZOLAM 2 MG/2 ML VIAL IVP ONE (10:42)
[2025-01-08] MEDS: LIDOCAINE 1% INJ 10MG/ML (20 ML MDV) SQ ONE (10:44)
[2025-01-08] MEDS: HEPARIN SODIUM,PORCINE 10,000 UNIT in SODIUM CHLORIDE 0.9% 1,000 ML IRRIGATION PRN (10:48)
[2025-01-08] MEDS: HEPARIN SODIUM,PORCINE (1 ML) 2,500 UNIT in SODIUM CHLORIDE 0.9% 250 ML IRRIGATION PRN (10:48)
[2025-01-08] MEDS: IOPAMIDOL-370 100ML BTL INJ ONE ×4 (11:01→11:27)
[2025-01-08] MEDS ORDERED: RX INFO: IV CONTRAST WAS GIVEN 1 EACH MISC MISCELLANE PRN (11:34)
--- NOTE | 2025-01-08 11:40 | P.PCN ---
Date of Procedure: 01/08/25 Operative Findings: CARDIAC CATHETERIZATION PERFORMING PHYSICIAN: Sunny Tai MD, RPVI PROCEDURE PERFORMED: 1. Selective right and left coronary angiogram and DEEPA to LAD angiogram and VELÁSQUEZ to OM 3 angiogram and SVG to diagonal angiogram as well as aortic root angiogram 2. Left heart catheterization 3. Ultrasound-guided access of the right common femoral artery and selective right common femoral artery angiogram INDICATION: Chest discomfort concerning for unstable angina COMPLICATION: None APPROACH: Right common femoral artery LEVEL OF SEDATION: Moderate with sedation in length of 38 minutes PROCEDURE DESCRIPTION: After obtaining an informed consent, the patient was brought to cardiac superintendent geophysical laboratory. Local anesthesia was performed using lidocaine subcutaneously. The right common femoral artery was cannulated using Seldinger technique, the guidewire passed easily, following that we advanced a 6 Italian sheath dilator assembly, the wire and dilator were removed and sheath was flushed. Selective right and left coronary angiogram using a 6-Italian JR4 and JL catheters. The DEEPA to LAD angiogram was performed using angulated glide catheter. The VELÁSQUEZ to OM 3 angiogram was performed using JR4 catheter. The SVG to the angiogram was performed using the JR4 catheter. Aortic root angiogram was performed using 6 Italian pigtail catheter Following that we did left heart catheterization using 6-Italian pigtail catheter. The procedure was completed there was no complication. SELECTIVE CORONARY ANGIOGRAM: The right coronary artery: Medium caliber vessel nondominant vessel with critical disease involving the midportion Left main: Appears to be angiographically normal The left circumflex: Large caliber vessel codominant vessel with severe disease involving the proximal portion The left anterior descending artery: Is occluded in the proximal to midportion Coronary bypasses angiogram The DEEPA to LAD is patent The VELÁSQUEZ to OM 1 is patent The SVG to diagonal and OM 3 are probably occluded HEMODYNAMICS: The LVEDP was 16 mmHg with no significant gradient across aortic valve CONCLUSION: 1. Severe disease involving the proximal LAD and proximal dominant left circumflex and mid nondominant RCA 2. Patent DEEPA to LAD and patent VELÁSQUEZ to OM 1 3. Stumped SVG to diagonal and nonopacified SVG to OM 3 POSTPROCEDURE MANAGEMENT: Medical treatment
[2025-01-08] MEDS ORDERED: SODIUM CHLORIDE 0.9% 1,000 ML IV SCH (11:45)
[2025-01-08 14:45] VITALS: BP 121/63; PULSE 55
== END 2025-01-08 15:34 | disposition home or self-care (01) ==
LOC: CATHCVL 08:17
PROVIDERS: ATTEND Internal Medicine Interventional Cardiology
DX: I25.110 Atherosclerotic heart disease of native coronary artery with unstable angina pectoris (principal); I10 Essential (primary) hypertension; E78.5 Hyperlipidemia, unspecified; F17.200 Nicotine dependence, unspecified, uncomplicated; Z95.5 Presence of coronary angioplasty implant and graft; Z79.82 Long term (current) use of aspirin; Z79.899 Other long term (current) drug therapy
CPT/HCPCS: 93459; 93567; 80048; 85025; 99152; 99153; C1760; C1894; C1769; J2250; J1644 ×2; J2003; Q9967